=== PATIENT | female | born 1955 | race African-American/Black ===

== ENCOUNTER 2023-01-17 12:55 | Outpatient (REF) | payer MEDICARE, SELFPAY ==
[2023-01-17 16:37] LABS: MANUAL DIFF FLAG NO
[2023-01-17 16:44] LABS: Basophils Percent Auto 0.3 % (0-2); Eosinophils Absolute Auto 0.1 X10*3/uL (0.0-0.4); Hematocrit 44.2 % (37.0-47.0); Hemoglobin 14.8 g/dl (12.0-16.0); Imm Gran Abs Auto 0.03 X10*3/uL (0.00-0.03); Imm Gran Pct Auto 0.5 % (0.0-0.4); Lymphocytes Absolute Auto 2.1 X10*3/uL (1.2-4.9); Lymphocytes Percent Auto 36.3 % (20-40); Mean Corpuscular HGB Conc 33.5 g/dl (31.0-35.0); Mean Corpuscular Hemoglobin 31.8 pg (27.0-33.0); Mean Corpuscular Volume 94.8 fL (80.0-98.0); Mean Platelet Volume 10.3 fL (9.4-12.3); Monocytes Absolute Auto 0.8 X10*3/uL (0.1-1.2); Monocytes Percent Auto 12.9 % (2-11); Neutrophils Absolute Auto 2.8 x10*3/uL (2.0-8.3); Platelet Count 252 X10*3/uL (160-400); Red Blood Count 4.66 X10*6/uL (4.20-5.50); Red Cell Distribution Width 13.7 % (11.0-16.0); White Blood Count 5.9 X10*3/uL (4.8-10.8)
[2023-01-17 17:16] LABS: Alanine Aminotransferase 19 U/L (0-31); Albumin Level 3.9 g/dL (3.5-5.0); Alkaline Phosphatase 88 U/L (39-117); Anion Gap 9 (12-20); Aspartate Amino Transferase 14 U/L (5-31); Bilirubin Total 0.6 mg/dL (0.0-1.0); Blood Urea Nitrogen 14 mg/dL (9-16); Calcium 9.2 mg/dL (8.4-10.2); Carbon Dioxide 28 mmol/L (22-29); Chloride 108 mmol/L (96-108); Cholesterol 191 mg/dL; Estimated Glomerular Filt Rate > 60; Glucose Random 99 mg/dL (60-115); HDL Cholesterol 46 mg/dL; LDL Cholesterol Calculated 124 mg/dl; Potassium 4.2 mmol/L (3.3-5.1); Sodium 141 mmol/L (135-145); Total Protein 6.6 g/dL (6.5-8.0); Triglycerides 109 mg/dL
[2023-01-17 17:31] LABS: Vitamin D 25-OH Total 41.4 ng/mL (>30)
== END 2023-01-17 12:56 | disposition home or self-care (01) ==
LOC: HO.HMGCLDS 12:55
PROVIDERS: PCP Nurse Practitioner Family; Visit Provider Nurse Practitioner Family
DX: I10 Essential (primary) hypertension (principal); E78.5 Hyperlipidemia, unspecified; E55.9 Vitamin D deficiency, unspecified
CPT/HCPCS: 36415; 80053; 80061; 82306; 85025

== ENCOUNTER 2024-05-21 08:50 | Outpatient (AMB) | payer MEDICARE, SELFPAY ==
--- NOTE | 2024-05-21 08:59 | MHC.PC.OV ---
Vital Signs 05/21/24 09:12 05/21/24 09:52 Height 5 ft 5 in Weight 230 lb 8 oz BMI 38.4 BP 184/84 H 154/78 H Blood Pressure Location Rt brachial Rt brachial Position Sitting Sitting Respiration 15 Pulse 81 Pulse Source Pulse Oximeter Temp 98.1 F Temp Source Oral Pulse Oximetry (%) 99 Oxygen Delivery Method Room Air Intake Visit Reasons: RN TRANSITION Intake Note: new patient to establish care Allergies Penicillins Allergy (Severe, Verified 05/21/24 09:03) Eye Swelling Medication List - Last Reconciled 05/21/24 by Marilou Navarrete, [facility]- amlodipine 10 mg PO DAILY aspirin 81 mg PO DAILY cholecalciferol (vitamin D3) 50 mcg PO DAILY hydrochlorothiazide 25 mg PO DAILY metoprolol tartrate 50 mg PO DAILY permethrin 5% 1 appl topical Q14D Tobacco use date assessed: 05/21/24 Fall risk assessment: 2 + Falls in past year Last assessed Fall Risk: 05/21/24 Dental Screening Dental Screen Date: 05/21/24 Did you have a dental visit in the last 12 months?: No Did you have a dental problem in the last 6 months where you did not have access to dental care?: No Was dental information given to patient?: Patient has dentist HPI HPI Comments History of Present Illness Details 68 y/o F with HTN, current smoker, menopause, obesity, Vit d def , right knee osteoarthritis, PVD Health Maintenance Lung ca screening: referred today 05/21/24 Dexa Pap Colon referred today 05/21/24 Mammo Tdap/flu 05/21/24 Specialists GI ortho Derm Here today as a new patient, to [facility], no old records available. Reports she fell out of care around the time of COVID In 2019 she was admitted to [facility] with SBO, ANETA requiring dialysis and bowel surgery. She needs a referral to see a new machine hoop maker She also complains of chronic right osteoarthritis, has received cortisone injections in the past, would like a referral to orthopedics placed today for her Reports numbness in her fingertips, chronic Complains of dry white flaky skin on her scalp and face, was prescribed permethrin cream in the past, is using an unsure if it has helped. Would like a referral to Dermatology Also complaining that her urine smells very bad, unsure of when this started. Denies any fever, chills, nausea, vomiting Has had several mechanical falls would like a lifeline Exam: Awake alert NAD RRR, 2/6 systolic murmur Ins/exp wheezes throughout Nonpitting edema BLE, decreased PP, + varicose veins, skin intact No rash is noted Plan Check labs today: Labs from today show a normal CBC, normal electrolytes, normal renal function, hemoglobin A1c 5.6%, normal iron profile, total cholesterol 220, LDL 150, HDL 46, triglycerides 120, vitamin B12 low end of normal at 238, normal vitamin-D, normal TSH and folate, normal urinalysis Tdap and Flu today Refer to GI, Derm and Ortho Refer for Lung ca screening BP uncontrolled, start HCTZ 25mg QAM to help + to help edema of BLE Start Atorvastatin 20mg QD Start b12 QD Please get discharge paperwork from [facility] 2019 admission for small bowel obs, had surgery and ANETA, Echo if avail; also need PCP notes. RTO 2 weeks for close fu and to cont to est care for chronic conditions. Total time spent caring for the patient today was 60 minutes. This includes time spent before the visit reviewing the chart, time spent during the visit, and time spent after the visit on documentation This note is constructed using voice recognition software. While every effort has been made to ensure accuracy in casting chipper, still errors may have been included Sometimes, these errors may affect the content or meaning of the given sentence . [facility] Social History (Updated 05/21/24 @ 09:11 by Estefani Truong MA) Household Members: None Housing: Apartment Are you a primary technical healthcare consultant to a significant other at home: No Do you presently have visiting nurse or other home services: Yes ([facility]) 75 years or older and lives alone: No Alcohol intake: current Alcohol intake frequency: a few times a week Patient Tobacco Use Status: Current everyday Tobacco user Tobacco use type: Cigarette Cigarettes Per Day: 3 Years Smoked: 50 e-Cigarette/Vaping Use: Never Used service: No Current occupational status: employed and retired 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 1. Little interest or pleasure in doing things: nearly every day 2. Feeling down, depressed, or hopeless: nearly every day 3. Trouble falling or staying asleep, or sleeping too much: nearly every day 4. Feeling tired or having little energy: nearly every day 5. Poor appetite or overeating: nearly every day 6. Feeling bad about yourself - or that you are a failure or have let yourself or your family down: several days 7. Trouble concentrating on things, such as reading the newspaper or watching television: nearly every day 8. Moving or speaking so slowly that other people could have noticed. Or the opposite - being so fidgety or restless that you have been moving around a lot more than usual: not at all 9. Thoughts that you would be better off or of hurting yourself in some way: several days Total score: 20 Depression Screening Interpretation: Positive Depression Screening Follow-up: Existing condition and Declines treatment Depression Screening Done: Yes 17479 - PHQ-9 Billing: Yes Source: Developed by Drs. Raymundo Higgins, Claudia Angulo, Mac Foote and colleagues, with an educational mireya from [employer] Thrive Questionnaire Date Thrive assessed: 05/21/24 I am a: Patient What is your living situation today?: I have a steady place to live Within the past 12 months, did the food you bought not last and you didn't have the money to get more?: Never true Within the past 12 months, did you worry whether your food would run out before you got money to buy more?: Never true Do you have trouble paying for medicines?: No Do you have trouble getting transportation to medical appointments?: No Do you have trouble paying your heating and electricity bill?: No Do you have trouble taking care of your child, family member or friend?: No Do you have trouble with day-to-day activities such as bathing, preparing meals, shopping, managing finances, etc.?: No Are you currently unemployed and looking for a job?: No Are you interested in more education?: No Please select the resources that you would like help with: None Currently or been in a relationship where the following occur: No concerns reported THRIVE Score: 0 AUDIT C Alcohol Use Questionnaire (AUDIT-C) 1. How often do you have a drink containing alcohol?: Monthly or less 2. How many drinks containing alcohol do you have on a typical day when you are drinking?: 1 or 2 3. How often do you have six or more drinks on one occasion?: Weekly Total Score: 4 Score Reviewed/Action Taken: Yes OMA-7 AMB Questionnaire OMA-7 Date OMA - 7 assessed: 05/21/24 Feeling nervous, anxious, or on edge: 1 = Several days Not being able to stop or control worryin = Several days Worrying too much about different things: 3 = Nearly every day Trouble relaxin = Nearly every day Being so restless that it is hard to sit still: 2 = More than half the days Becoming easily annoyed or irritable: 3 = Nearly every day Feeling afraid as if something awful might happen: 3 = Nearly every day Total OMA-7 score (0-4 normal; 5-9 mild; 10-14 moderate; 15-21 severe): 16 Source: Developed by Drs. Raymundo Higgins, Claudia Angulo, Mac Foote and colleagues, with an educational mireya from [employer] OMA-7 Assessment Billing OMA-7 Assessment Tool: OMA-7 Assessment 04980 ACT Questionnaire In the past 4 weeks, how much of the time did your asthma keep you from getting as much done at work, school or at home?: Most of the time During the past 4 weeks, how often have you had shortness of breath?: 3-6 times a week During the past 4 weeks, how often did your asthma symptoms wake you up at night or earlier than usual in the morning?: 4 or more nights a week During the past 4 weeks, how often have you had to use your rescue inhaler or nebulizer medication?: Once a week or less How would you rate your asthma control during the past 4 weeks?: Poorly controlled Score: 12 Physical exam (Primary Care) Vital Signs: Last Vital Signs Temp 98.1 F 05/21/24 09:12 Pulse 81 05/21/24 09:12 Resp 15 05/21/24 09:12 BP 154/78 H 05/21/24 09:52 Pulse Ox 99 05/21/24 09:12 Oxygen Delivery Method Room Air 05/21/24 09:12 BMI result Body Mass Index 38.4 BMI Assessment/Plan discussion: High BMI High, discussed plan: lifestyle Tobacco/Smoking Status: Tobacco use Status Tobacco use date assessed 05/21/24 05/21/24 09:16 Patient Tobacco Use Status Current everyday Tobacco 05/21/24 09:16 Tobacco use type Cigarette 05/21/24 09:16 e-Cigarette/Vaping Use Never Used 05/21/24 09:16 Are you ready to quit: No Tobacco cessation counseling provided: Yes Items discussed: Nicotine replacement, QuitWorks and Other Relapse Prevention: discussed the importance of a supportive environment, discussed extending NRT, discussed negative mood or depression after quitting, weight gain after smoking is common and discussed dietary, exercise and/or lifestyle changes Number of minutes spent counselin CPT code: 44589 - 4-10 Minutes PHQ-9: PHQ-9 Score PHQ-9: Total score 20 05/21/24 10:21 Depression Screening Interpretation: Positive Depression Screening Follow-up: Existing condition and Declines treatment Thrive Assessment: Date of Thrive Assessment Date Thrive assessed 05/21/24 05/21/24 10:21 Currently or been in a relationship where the following occur: No concerns reported Office Procedures Flu Questionnaire Does the patient have a severe egg allergy?: No Does the patient have severe life threatening allergies?: No Does the patient have a fever or illness today?: No Has the patient ever had Guillain-Wakefield Syndrome?: No Has the patient ever had any past reaction to a flu shot?: No Immunizations Fluarix Triv [id number] (PF) 45 mcg (15 mcg x 3)/0.5 mL IM syringe Performing Provider: ESTEFANIA Valiente Performing Location: [facility] Administered by: Odalis Lopez RN on 05/21/24 10:11 Dose Route Admin Location Dispensed Lot Number Expiration Date [facility] Electronic [facility] Techn[facility] 0.5 mL IM Left Deltoid 0.5 mL [id number] 02/04/25 28209-007-41 [employer] VIS Given Date VIS Provided VIS Publication Date 05/21/24 Single Vaccine 21 Eligibility Eligibility Date Funding Source Not [facility] Eligible 05/21/24 Private Administration Comments: Patient received both the flu shot and TDaP today. Both given in left deltoid, flu shot above the TDaP. Boostrix Tdap 2.5 Lf unit-8 mcg-5 Lf/0.5 mL intramuscular syringe Performing Provider: ESTEFANIA Valiente Performing Location: [facility] Administered by: Odalis Lopez RN on 05/21/24 10:11 Dose Route Admin Location Dispensed Lot Number Expiration Date [facility] Technician 0.5 mL IM Left Deltoid 0.5 mL [id number] 05/05/25 26284-204-61 [employer] VIS Given Date VIS Provided VIS Publication Date 05/21/24 Single Vaccine 21 Eligibility Eligibility Date Funding Source Not [facility] Eligible 05/21/24 Private Administration Comments: Patient received both the flu shot and TDaP today. Both given in left deltoid, flu shot above the TDaP. Coding Level of Care Code New Pt Level 5 (18351) Complex EM visit Add On G2211 Diagnoses Current smoker F17.200 S/P colectomy Z90.49 Screen for colon cancer Z12.11 Skin rash R21 Falls R29.6 Primary osteoarthritis of right knee M17.11 Osteoarthritis type: primary Class 2 severe obesity due to excess calories with serious comorbidity and body mass index (BMI) of 38.0 to 38.9 in adult E66.812; E66.01; Z68.38 Obesity type: due to excess calories Serious obesity comorbidity presence: with serious comorbidity Body mass index (BMI) of 38.0-38.9 in adult Z68.38 Mild episode of recurrent major depressive disorder F33.0 Major depression episode severity: mild OMA (generalized anxiety disorder) F41.1 PVD (peripheral vascular disease) I73.9 Menopause Z78.0 Laboratory exam ordered as part of routine general medical examination Z00.00 Mixed hyperlipidemia E78.2 Hyperlipidemia type: mixed hyperlipidemia Primary hypertension I10 Hypertension type: primary hypertension Vitamin B12 deficiency without anemia E53.8 Additional Codes OMA-7 Assessment Billing - OMA-7 Assessment Tool: OMA-7 Assessment 85949 ([id number]) Vital Signs *Quality* - CPT code: 95105 - 4-10 Minutes ([id number]) Assessment & Plan Assessment & Plan (1) Current smoker: Code(s): F17.200 - Nicotine dependence, unspecified, uncomplicated Category: Medical Plan: Smoking Cessation How to Quit There are a lot of ways to quit smoking and many resources to help you. Family members, friends, and co-workers may be supportive or encouraging, but to be successful the desire and commitment to quit must be your own. Most people who have been able to successfully quit smoking made at least one unsuccessful attempt in the past. Try not to view past attempts to quit as failures, but rather as learning experiences. Stopping smoking or using smokeless tobacco is difficult, but anyone can do it. Know the symptoms to expect when you stop. Common symptoms include: ? An intense craving for nicotine ? Anxiety, tension, restlessness, frustration, or impatience ? Difficulty concentrating ? Drowsiness or trouble sleeping, as well as bad dreams and nightmares ? Drowsiness and trouble sleeping ? Headaches ? Increased appetite and weight gain ? Irritability or depression How severe your symptoms are depends on how long you smoked and how many cigarettes you smoked each day. Feel ready to quit? ? First and foremost, set a quit date and quit completely on that day. Before your quit date, you may begin reducing your cigarette use. But remember, there is no safe level of cigarette smoking. ? List the reasons why you want to quit. Include both short- and long-term benefits. ? Identify the times you are most likely to smoke. For example, do you tend to smoke when feeling stressed or down? When out at night with friends? While drinking coffee or alcohol? When bored? While driving? Right after a meal or sex? During a work break? While watching TV or playing cards? When you are with other smokers? ? Let all of your friends, family, and co-workers know of your plan to stop smoking and your quit date. Just being aware that they know what you're going through can be helpful, especially when you are grumpy. ? Get rid of all your cigarettes just before the quit date, and clean out anything that smells like smoke, such as clothes and furniture. Make a plan about what you will do instead of smoking at those times when you are most likely to smoke. ? Be as specific as possible. For example, drink tea instead of coffee -- tea may not trigger the desire for a cigarette. Or, take a walk when you feel stressed. ? Remove ashtrays and cigarettes from the car. Place pretzels or hard candies there instead. Pretend-smoke with a straw. ? Find activities that focus your hands and mind but are not taxing or fattening. Computer games, solitaire, knitting, sewing, and crossword puzzles may help. ? If you normally smoke after eating, find other ways to end a meal. Play a tape or CD, eat a piece of fruit, get up and make a phone call, or take a walk (a good distraction that also wong calories). Make other changes in your lifestyle. ? Change your daily schedule and habits. Eat at different times or eat several small meals instead of three large ones. Sit in a different chair or even a different room. ? Satisfy your oral habits by eating celery or other low-calorie snack, chewing sugarless gum, or sucking on a cinnamon stick. ? Go to public places and restaurants where smoking is prohibited or restricted. ? Eat regular meals and don't eat too much candy or sweet things. ? Get more exercise. Take walks or ride a bike. Exercise helps relieve the urge to smoke. Set short-term quitting goals and reward yourself when you meet them. ? Every day, put the money you normally spend on cigarettes in a jar. Then buy something pleasurable after a period of time. ? Try not to think about all the days ahead you will need to avoid smoking. Take it one day at a time. ? Even one puff or one cigarette will make your desire for more cigarettes even stronger. However, it is normal to make mistakes. So even if you have one cigarette, you don't need to take the next one. Other tips to help you quit smoking and stick to it: ? Enroll in a smoking cessation program (hospitals, health departments, community centers, and work sites often offer programs). Learn about self-hypnosis or other techniques. ? Ask your health care provider about prescription medications that are safe and appropriate for you. ? Find out about nicotine patches, gum, and sprays. The [employer]'s web site -- www.cancer.org -- is an excellent resource for smokers who are trying to quit, and the [employer] [place] [employer] can help some smokers kick the habit. Above all, don't get discouraged if you aren't able to quit smoking the first time. Nicotine addiction is a hard habit to break. Try something different next time. Develop new strategies, and try again. Many people take several attempts to finally kick the habit. (2) S/P colectomy: Code(s): Z90.49 - Acquired absence of other specified parts of digestive tract Category: Medical Plan: . (3) Screen for colon cancer: Code(s): Z12.11 - Encounter for screening for malignant neoplasm of colon Category: Medical Plan: . (4) Skin rash: Code(s): R21 - Rash and other nonspecific skin eruption Category: Medical Plan: . (5) Falls: Code(s): R29.6 - Repeated falls Category: Medical Plan: . (6) Osteoarthritis of right knee: Code(s): M17.11 - Unilateral primary osteoarthritis, right knee Category: Medical Qualifiers: Osteoarthritis type: primary Qualified Code(s): M17.11 - Unilateral primary osteoarthritis, right knee Plan: . (7) Class 2 obesity with body mass index (BMI) of 38.0 to 38.9 in adult: Comment: htn and pvd Code(s): E66.812 - Obesity, class 2; Z68.38 - Body mass index [BMI] 38.0-38.9, adult Category: Medical Qualifiers: Obesity type: due to excess calories Serious obesity comorbidity presence: with serious comorbidity Qualified Code(s): E66.812 - Obesity, class 2; E66.01 - Morbid (severe) obesity due to excess calories; Z68.38 - Body mass index [BMI] 38.0-38.9, adult (8) Body mass index (BMI) of 38.0-38.9 in adult: Code(s): Z68.38 - Body mass index [BMI] 38.0-38.9, adult Category: Medical Plan: . (9) MDD (major depressive disorder), recurrent episode: Code(s): F33.9 - Major depressive disorder, recurrent, unspecified Category: Medical Qualifiers: Major depression episode severity: mild Qualified Code(s): F33.0 - Major depressive disorder, recurrent, mild Plan: . (10) OMA (generalized anxiety disorder): Code(s): F41.1 - Generalized anxiety disorder Category: Medical Plan: . (11) PVD (peripheral vascular disease): Comment: based on clinical exam, decreased PP, hairless, monitor skin integrity encourage exercise and smoking cessation Code(s): I73.9 - Peripheral vascular disease, unspecified Category: Medical Plan: . (12) Menopause: Code(s): Z78.0 - Asymptomatic menopausal state Category: Medical Plan: . (13) Laboratory exam ordered as part of routine general medical examination: Code(s): Z00.00 - Encounter for general adult medical examination without abnormal findings Category: Medical Plan: . (14) Hyperlipidemia: Code(s): E78.5 - Hyperlipidemia, unspecified Category: Medical Qualifiers: Hyperlipidemia type: mixed hyperlipidemia Qualified Code(s): E78.2 - Mixed hyperlipidemia (15) HTN (hypertension): Code(s): I10 - Essential (primary) hypertension Category: Medical Qualifiers: Hypertension type: primary hypertension Qualified Code(s): I10 - Essential (primary) hypertension (16) Vitamin B12 deficiency without anemia: Code(s): E53.8 - Deficiency of other specified B group vitamins Category: Medical Plan . Orders: Orders Comprehensive Met. Panel Today F17.200 - Nicotine dependence, unspecified, uncomplicated, Z00.00 - Encounter for general adult medical examination without abnormal findings, Z78.0 - Asymptomatic menopausal state Hemoglobin A1c Today F17.200 - Nicotine dependence, unspecified, uncomplicated, Z00.00 - Encounter for general adult medical examination without abnormal findings, Z78.0 - Asymptomatic menopausal state IRON PROFILE Today F17.200 - Nicotine dependence, unspecified, uncomplicated, Z00.00 - Encounter for general adult medical examination without abnormal findings, Z78.0 - Asymptomatic menopausal state Vitamin D 25-OH Total Today F17.200 - Nicotine dependence, unspecified, uncomplicated, Z00.00 - Encounter for general adult medical examination without abnormal findings, Z78.0 - Asymptomatic menopausal state TDaP Immunization Today Z23 - Encounter for immunization Complete Blood Count no Diff Today F17.200 - Nicotine dependence, unspecified, uncomplicated, Z00.00 - Encounter for general adult medical examination without abnormal findings, Z78.0 - Asymptomatic menopausal state Lipid Panel Today F17.200 - Nicotine dependence, unspecified, uncomplicated, Z00.00 - Encounter for general adult medical examination without abnormal findings, Z78.0 - Asymptomatic menopausal state Microalbumin, Random (w Creat) Today F17.200 - Nicotine dependence, unspecified, uncomplicated, Z00.00 - Encounter for general adult medical examination without abnormal findings, Z78.0 - Asymptomatic menopausal state TSH reflex Free T4 Today F17.200 - Nicotine dependence, unspecified, uncomplicated, Z00.00 - Encounter for general adult medical examination without abnormal findings, Z78.0 - Asymptomatic menopausal state Vitamin B12 and Folate Today F17.200 - Nicotine dependence, unspecified, uncomplicated, Z00.00 - Encounter for general adult medical examination without abnormal findings, Z78.0 - Asymptomatic menopausal state UA CC w/rflx Micro + Cult Today F17.200 - Nicotine dependence, unspecified, uncomplicated, Z00.00 - Encounter for general adult medical examination without abnormal findings, Z78.0 - Asymptomatic menopausal state Influenza [id number] Immunization Today Z23 - Encounter for immunization Referrals Lung Cancer Screening Referral F17.200 - Nicotine dependence, unspecified, uncomplicated Orthopedics Referral M17.11 - Unilateral primary osteoarthritis, right knee Gastroenterology Referral Z12.11 - Encounter for screening for malignant neoplasm of colon, Z90.49 - Acquired absence of other specified parts of digestive tract Dermatology Referral R21 - Rash and other nonspecific skin eruption Nurse Navigator Referral R29.6 - Repeated falls Medications: New amlodipine 10 mg PO DAILY 90 tabs 0RF hydrochlorothiazide 25 mg PO DAILY 90 tabs 0RF metoprolol tartrate 50 mg PO DAILY 90 tabs 0RF cholecalciferol (vitamin D3) 50 mcg PO DAILY 90 caps 2RF atorvastatin 20 mg PO BEDTIME 90 tabs 0RF mecobalamin (vitamin B12) (B12 Active) 2,000 mcg (2 x 1,000 mcg) PO DAILY 90 tabs 3RF
[2024-05-21 09:12] VITALS: BP 184/84; PULSE 81; RESP 15; TEMP 36.7; O2SAT 99; BMI 38.4
[2024-05-21 09:52] VITALS: BP 154/78
== END 2024-05-21 10:43 | disposition home or self-care (01) ==
PROVIDERS: Visit Provider Nurse Practitioner Family
DX: F33.0 Major depressive disorder, recurrent, mild (principal); I73.9 Peripheral vascular disease, unspecified; E66.812 Obesity, class 2; Z68.38 Body mass index [BMI] 38.0-38.9, adult; I10 Essential (primary) hypertension; M17.11 Unilateral primary osteoarthritis, right knee; Z90.49 Acquired absence of other specified parts of digestive tract; F17.210 Nicotine dependence, cigarettes, uncomplicated; Z12.11 Encounter for screening for malignant neoplasm of colon; R21 Rash and other nonspecific skin eruption; R29.6 Repeated falls; F41.1 Generalized anxiety disorder

== ENCOUNTER → 2024-05-21 08:50 | Outpatient (BNVA) | payer MEDICARE, SELFPAY | PROVIDERS: Visit Provider Nurse Practitioner Family ==

== ENCOUNTER 2024-05-21 10:30 | Outpatient (REF) | payer MEDICARE, SELFPAY ==
[2024-05-21 13:41] LABS: Hematocrit 43.5 % (37.0-47.0); Hemoglobin 14.9 g/dl (12.0-16.0); Mean Corpuscular HGB Conc 34.3 g/dl (31.0-35.0); Mean Corpuscular Hemoglobin 32.3 pg (27.0-33.0); Mean Corpuscular Volume 94.2 fL (80.0-98.0); Mean Platelet Volume 9.9 fL (9.4-12.3); Platelet Count 224 X10*3/uL (160-400); Red Blood Count 4.62 X10*6/uL (4.20-5.50); Red Cell Distribution Width 13.3 % (11.0-16.0); White Blood Count 4.8 X10*3/uL (4.8-10.8)
[2024-05-21 13:56] LABS: Appearance Urine Clear; Color Urine Yellow; Glucose Urine UA Negative (Negative); Leukocyte Esterase Urine Negative (Negative); Nitrite Urine Negative (Negative); Urine Blood Negative (Negative); Urine Ketones Negative (Negative); Urine Protein Negative (Neg-Trace)
[2024-05-21 13:58] LABS: Alanine Aminotransferase 18 U/L (0-31); Albumin Level 3.8 g/dL (3.5-5.0); Alkaline Phosphatase 75 U/L (39-117); Anion Gap 10 (12-20); Aspartate Amino Transferase 13 U/L (5-31); Bilirubin Total 0.3 mg/dL (0.0-1.0); Blood Urea Nitrogen 12 mg/dL (9-16); Calcium 9.8 mg/dL (8.4-10.2); Carbon Dioxide 26 mmol/L (22-29); Chloride 108 mmol/L (96-108); Cholesterol 220 mg/dL (<200); Estimated Glomerular Filt Rate > 60; Glucose Random 101 mg/dL (60-115); HDL Cholesterol 46 mg/dL (>40); Iron 93 mcg/dL (30-160); LDL Cholesterol Calculated 150 mg/dL (<100); Percent Iron Saturation 37 % (15-50); Potassium 3.9 mmol/L (3.3-5.1); Sodium 140 mmol/L (135-145); Total Iron Binding Capacity 251 mcg/dL (228-428); Total Protein 6.8 g/dL (6.5-8.0); Triglycerides 120 mg/dL (<150); Unsaturated Iron Binding 158 ug/dL
[2024-05-21 13:59] LABS: Estimated Average Glucose 114 mg/dL; Hemoglobin A1C 136.6172 umol/L; Hemoglobin A1c % 5.6 % (<6.0)
[2024-05-21 14:14] LABS: TSH reflex Free T4 0.72 uIU/mL (0.32-4.0)
[2024-05-21 14:20] LABS: Creatinine Urine 46.71 mg/dL; Microalbumin Urine < 5.0 mg/L
[2024-05-21 14:26] LABS: Folate 7.1 ng/mL (> or = 4.0); Vitamin B12 238 pg/mL (200-900)
== END 2024-05-21 10:31 | disposition home or self-care (01) ==
LOC: HO.WFDLDS 10:30
PROVIDERS: Visit Provider Nurse Practitioner Family
DX: R21 Rash and other nonspecific skin eruption (principal); R29.6 Repeated falls; M17.11 Unilateral primary osteoarthritis, right knee; Z23 Encounter for immunization; E66.812 Obesity, class 2; E66.01 Morbid (severe) obesity due to excess calories; Z68.38 Body mass index [BMI] 38.0-38.9, adult; F33.0 Major depressive disorder, recurrent, mild; F41.1 Generalized anxiety disorder; I73.9 Peripheral vascular disease, unspecified; E78.2 Mixed hyperlipidemia; I10 Essential (primary) hypertension; E53.8 Deficiency of other specified B group vitamins; F17.210 Nicotine dependence, cigarettes, uncomplicated; Z78.0 Asymptomatic menopausal state; Z90.49 Acquired absence of other specified parts of digestive tract
CPT/HCPCS: 36415; 80053; 80061; 81003; 82043; 82306; 82570; 82607; 82746; 83036; 83540; 84443; 85027; 90471; 90656; 90715; 96127; 96160; 99202

== ENCOUNTER 2024-06-04 13:03 | Outpatient (AMB) | payer MEDICARE, SELFPAY ==
--- NOTE | 2024-06-04 13:09 | A.OFFPC_ITS ---
Vital Signs 06/04/24 13:13 Height 5 ft 5 in Weight 228 lb 4 oz BMI 38.0 BP 128/72 Blood Pressure Location Rt brachial Position Sitting Respiration 14 Pulse 86 Pulse Source Pulse Oximeter Pulse Oximetry (%) 97 Oxygen Delivery Method Room Air Intake Visit Reasons: 2 weeks 30 min est care/fu complex Intake Note: follow up Allergies Penicillins Allergy (Severe, Verified 06/04/24 13:36) Eye Swelling Medication List - Last Reconciled 06/04/24 by Marilou Navarrete, [facility] amlodipine 10 mg PO DAILY aspirin 81 mg PO DAILY atorvastatin 20 mg PO BEDTIME cholecalciferol (vitamin D3) 50 mcg PO DAILY hydrochlorothiazide 25 mg PO DAILY mecobalamin (vitamin B12) (B12 Active) 2,000 mcg (2 x 1,000 mcg) PO DAILY metoprolol tartrate 50 mg PO DAILY permethrin 5% 1 appl topical Q14D Tobacco use date assessed: 05/21/24 Dental Screening Dental Screen Date: 05/21/24 HPI HPI Comments History of Present Illness Details Kindra 68 y/o F with HTN, current smoker, menop ause, obesity, Vit d def , right knee osteoarthritis, PVD, CHF, b12 def without anemia, frequent falls Health Maintenance Lung ca screening: referred 05/21/24 Dexa Pap Colon referred 05/21/24 Mammo Tdap/flu 05/21/24 Specialists GI waiting on appt ortho 06/18/24 for initial consult Derm 06/2024 [facility] initial derm Cards Here today for close f/u. Started HCTZ a few days but noticed an uptic in urination so stopped. It did help her edema. Wt decreased since last visit. She is not active w/ Cards. Did not get her statin or ASA or B12 either. She is unsure why. I have sent these today. I still not not recieve the record from 2019 admit at [facility] with SBO, ANETA requiring dialysis and bowel surgery. I asked she work on getting these for me. Reports numbness in her fingertips, chronic, edu her about b12 playing a role in this. She needs to start. Reviewed w/ her Labs from 05/21/24 normal CBC, normal electrolytes, normal renal function, hemoglobin A1c 5.6%, normal iron profile, total cholesterol 220, LDL 150, HDL 46, triglycerides 120, vitamin B12 low end of normal at 238, normal vitamin-D, normal TSH and folate, normal urinalysis Exam: Awake alert NAD RRR, 2/6 systolic murmur Clear and dim throughout Nonpitting edema BLE L>R, decreased PP, + varicose veins, skin intact Plan Refer to Cards and check Echo All meds sent to pharmacy, take as directed Keep all appts w/ consults, please ask records to be cc'd to me for review Smoking cessation RTO 3 months w repeat labs 1 week before for routine FU, sooner PRN Total time spent caring for the patient today was 40 minutes. This includes time spent before the visit reviewing the chart, time spent during the visit, and time spent after the visit on documentation This note is constructed using voice recognition software. While every effort has been made to ensure accuracy in brand marketing intern, still errors may have been included Sometimes, these errors may affect the content or meaning of the given sentence . [facility] Social History (System 05/22/24 @ 07:46 by Maira Alexander) Household Members: None Housing: Apartment Are you a primary primary care physician to a significant other at home: No Do you presently have visiting nurse or other home services: Yes ([facility]) 75 years or older and lives alone: No Alcohol intake: current Alcohol intake frequency: a few times a week Patient Tobacco Use Status: Current everyday Tobacco user Tobacco use type: Cigarette Cigarettes Per Day: 3 Years Smoked: 50 e-Cigarette/Vaping Use: Never Used service: No Current occupational status: employed and retired 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 1. Little interest or pleasure in doing things: several days 2. Feeling down, depressed, or hopeless: several days 3. Trouble falling or staying asleep, or sleeping too much: several days 4. Feeling tired or having little energy: several days 5. Poor appetite or overeating: more than half the days 6. Feeling bad about yourself - or that you are a failure or have let yourself or your family down: several days 7. Trouble concentrating on things, such as reading the newspaper or watching television: several days 8. Moving or speaking so slowly that other people could have noticed. Or the opposite - being so fidgety or restless that you have been moving around a lot more than usual: several days 9. Thoughts that you would be better off or of hurting yourself in some way: several days Total score: 10 70309 - PHQ-9 Billing: Yes Source: Developed by Drs. Raymundo Higgins, Clauida Angulo, Mac Foote and colleagues, with an educational mireya from [employer]. Thrive Questionnaire Date Thrive assessed: 05/29/24 I am a: Patient What is your living situation today?: I do not have a steady places to live I choose not to answer this question Within the past 12 months, did the food you bought not last and you didn't have the money to get more?: Sometimes True Within the past 12 months, did you worry whether your food would run out before you got money to buy more?: Sometimes True Do you have trouble paying for medicines?: No Do you have trouble getting transportation to medical appointments?: No Do you have trouble paying your heating and electricity bill?: No Do you have trouble taking care of your child, family member or friend?: I choose not to answer this question Do you have trouble with day-to-day activities such as bathing, preparing meals, shopping, managing finances, etc.?: I choose not to answer this question Are you currently unemployed and looking for a job?: No Are you interested in more education?: No Please select the resources that you would like help with: Housing/Fpc and Food Currently or been in a relationship where the following occur: I choose not to answer THRIVE Score: 3 AUDIT C Alcohol Use Questionnaire (AUDIT-C) 1. How often do you have a drink containing alcohol?: Monthly or less Total Score: 1 OMA-7 AMB Questionnaire OMA-7 Date OMA - 7 assessed: 06/04/24 Feeling nervous, anxious, or on edge: 2 = More than half the days Not being able to stop or control worryin = Several days Worrying too much about different things: 2 = More than half the days Trouble relaxin = Several days Being so restless that it is hard to sit still: 1 = Several days Becoming easily annoyed or irritable: 1 = Several days Feeling afraid as if something awful might happen: 1 = Several days Total OMA-7 score (0-4 normal; 5-9 mild; 10-14 moderate; 15-21 severe): 9 Source: Developed by Drs. Raymundo Higgins, Claudia Angluo, Mac Foote and colleagues, with an educational mireya from [employer]. OMA-7 Assessment Billing OMA-7 Assessment Tool: OMA-7 Assessment 18751 Physical exam (Primary Care) Vital Signs: Last Vital Signs Pulse 86 06/04/24 13:13 Resp 14 06/04/24 13:13 BP 128/72 06/04/24 13:13 Pulse Ox 97 06/04/24 13:13 Oxygen Delivery Method Room Air 06/04/24 13:13 BMI result Body Mass Index 38.0 Tobacco/Smoking Status: Tobacco use Status Tobacco use date assessed 05/21/24 06/04/24 13:10 Patient Tobacco Use Status Current everyday Tobacco 06/04/24 13:10 Tobacco use type Cigarette 06/04/24 13:10 e-Cigarette/Vaping Use Never Used 06/04/24 13:10 Tobacco cessation counseling provided: Yes Items discussed: Nicotine replacement, QuitWorks and Other Relapse Prevention: discussed the importance of a supportive environment, discussed extending NRT, discussed negative mood or depression after quitting, weight gain after smoking is common and discussed dietary, exercise and/or lifestyle changes Number of minutes spent counselin (5) CPT code: 09781 - 4-10 Minutes PHQ-9: PHQ-9 Score PHQ-9: Total score 10 06/04/24 18:03 Thrive Assessment: Date of Thrive Assessment Date Thrive assessed 05/29/24 06/04/24 13:10 Currently or been in a relationship where the following occur: I choose not to answer Coding Level of Care Code Est Pt Level 5 (41018) Complex EM visit Add On G2211 Diagnoses Chronic systolic congestive heart failure I50.22 Heart failure type: systolic Heart failure chronicity: chronic Heart murmur R01.1 Mixed hyperlipidemia E78.2 Hyperlipidemia type: mixed hyperlipidemia Primary hypertension I10 Hypertension type: primary hypertension Vitamin B12 deficiency without anemia E53.8 PVD (peripheral vascular disease) I73.9 Mild episode of recurrent major depressive disorder F33.0 Major depression episode severity: mild Tobacco dependence F17.200 Additional Codes OMA-7 Assessment Billing - OMA-7 Assessment Tool: OMA-7 Assessment 21582 ([id number]) Vital Signs *Quality* - CPT code: 12819 - 4-10 Minutes ([id number]) Assessment & Plan Assessment & Plan (1) CHF (congestive heart failure): Code(s): I50.9 - Heart failure, unspecified Category: Medical Qualifiers: Heart failure type: systolic Heart failure chronicity: chronic Qualified Code(s): I50.22 - Chronic systolic (congestive) heart failure Plan: euvolemic, on BB, CCB (2) Heart murmur: Code(s): R01.1 - Cardiac murmur, unspecified Category: Medical Plan: . (3) Hyperlipidemia: Comment: LDL goal <70 Code(s): E78.5 - Hyperlipidemia, unspecified Category: Medical Qualifiers: Hyperlipidemia type: mixed hyperlipidemia Qualified Code(s): E78.2 - Mixed hyperlipidemia Plan: . (4) HTN (hypertension): Code(s): I10 - Essential (primary) hypertension Category: Medical Qualifiers: Hypertension type: primary hypertension Qualified Code(s): I10 - Essential (primary) hypertension Plan: . (5) Vitamin B12 deficiency without anemia: Code(s): E53.8 - Deficiency of other specified B group vitamins Category: Medical Plan: . (6) PVD (peripheral vascular disease): Comment: 05/2024 ([employer] 06/04/24 Right leg 1.02 WNL, Left leg 0.59 Mild/moderate) based on clinical exam, decreased PP, hairless, monitor skin integrity encourage exercise and smoking cessation Code(s): I73.9 - Peripheral vascular disease, unspecified Category: Medical Plan: . (7) MDD (major depressive disorder), recurrent episode: Code(s): F33.9 - Major depressive disorder, recurrent, unspecified Category: Medical Qualifiers: Major depression episode severity: mild Qualified Code(s): F33.0 - Major depressive disorder, recurrent, mild Plan: . (8) Tobacco dependence: Code(s): F17.200 - Nicotine dependence, unspecified, uncomplicated Category: Medical Plan: . Plan . Orders: Orders Vitamin B12 and Folate 08/08/24 E53.8 - Deficiency of other specified B group vitamins, E78.2 - Mixed hyperlipidemia, I10 - Essential (primary) hypertension CA echo transthoracic complete 06/04/24 I50.9 - Heart failure, unspecified, R01.1 - Cardiac murmur, unspecified Comprehensive Met. Panel 08/08/24 E53.8 - Deficiency of other specified B group vitamins, E78.2 - Mixed hyperlipidemia, I10 - Essential (primary) hypertension Lipid Panel 08/08/24 E53.8 - Deficiency of other specified B group vitamins, E78.2 - Mixed hyperlipidemia, I10 - Essential (primary) hypertension Hemoglobin A1c 08/08/24 E53.8 - Deficiency of other specified B group vitamins, E78.2 - Mixed hyperlipidemia, I10 - Essential (primary) hypertension Referrals Cardiology Referral I50.9 - Heart failure, unspecified Medications: New aspirin 81 mg PO DAILY 90 caps 2RF Refilled atorvastatin 20 mg PO BEDTIME 90 tabs 0RF mecobalamin (vitamin B12) (B12 Active) 2,000 mcg (2 x 1,000 mcg) PO DAILY 90 tabs 3RF Discontinued hydrochlorothiazide Discontinued Reason: Patient no longer taking 25 mg PO DAILY 90 tabs 0RF
[2024-06-04 13:13] VITALS: BP 128/72; PULSE 86; RESP 14; O2SAT 97; BMI 38.0
== END 2024-06-04 13:54 | disposition home or self-care (01) ==
LOC: HO.HMCFM 13:04
PROVIDERS: PCP Nurse Practitioner Family; Visit Provider Nurse Practitioner Family
DX: I50.22 Chronic systolic (congestive) heart failure (principal); I73.9 Peripheral vascular disease, unspecified; F33.0 Major depressive disorder, recurrent, mild; R01.1 Cardiac murmur, unspecified; E78.2 Mixed hyperlipidemia; I10 Essential (primary) hypertension; E53.8 Deficiency of other specified B group vitamins; F17.200 Nicotine dependence, unspecified, uncomplicated

== ENCOUNTER → 2024-06-04 13:03 | Outpatient (BNVA) | payer MEDICARE, SELFPAY | PROVIDERS: PCP Nurse Practitioner Family; Visit Provider Nurse Practitioner Family | DX: I11.0 Hypertensive heart disease with heart failure (principal); I50.22 Chronic systolic (congestive) heart failure; R01.1 Cardiac murmur, unspecified; E78.2 Mixed hyperlipidemia; E53.8 Deficiency of other specified B group vitamins; I73.9 Peripheral vascular disease, unspecified; F33.0 Major depressive disorder, recurrent, mild; F17.200 Nicotine dependence, unspecified, uncomplicated | CPT/HCPCS: 96127; 99212 ==

== ENCOUNTER 2024-06-28 08:41 | Outpatient (REF) | payer MEDICARE, SELFPAY | END 2024-06-28 08:42 | disposition home or self-care (01) | LOC: HO.HOSX 08:41 | PROVIDERS: Visit Provider Physician Assistant | DX: Z13.89 Encounter for screening for other disorder (principal) ==

== ENCOUNTER 2024-07-23 08:25 | Outpatient (REF) | payer MEDICARE, SELFPAY | END 2024-07-23 08:26 | disposition home or self-care (01) | LOC: HO.HOSX 08:25 | PROVIDERS: Visit Provider Physician Assistant | DX: Z13.89 Encounter for screening for other disorder (principal) ==

== ENCOUNTER 2024-09-05 09:48 | Outpatient (AMB) | payer MEDICARE, SELFPAY ==
--- NOTE | 2024-09-05 10:07 | A.OFFPC_ITS ---
Vital Signs 09/05/24 10:15 Height 5 ft 5 in Weight 236 lb BMI 39.3 BP 138/76 Blood Pressure Location Rt brachial Position Sitting Respiration 13 Pulse 56 Pulse Source Pulse Oximeter Temp 97.1 F Temp Source Oral Pulse Oximetry (%) 96 Oxygen Delivery Method Room Air Intake Visit Reasons: 3 months 30 min routine f/u Intake Note: ER [facility] discharge follow up [facility] [employer]er Required: No Allergies Penicillins Allergy (Severe, Verified 09/05/24 11:02) Eye Swelling Medication List - Last Reconciled 09/05/24 by Marilou Navarrete, [facility]- amlodipine 10 mg PO DAILY aspirin 81 mg PO DAILY atorvastatin 20 mg PO BEDTIME cholecalciferol (vitamin D3) 50 mcg PO DAILY mecobalamin (vitamin B12) (B12 Active) 2,000 mcg (2 x 1,000 mcg) PO DAILY metoprolol tartrate 50 mg PO DAILY permethrin 5% 1 appl topical Q14D Tobacco use date assessed: 05/21/24 Dental Screening Dental Screen Date: 05/21/24 HPI HPI Comments History of Present Illness Details Kindra 69 y/o F with HTN, current smoker, menop ause, obesity, Vit d def , right knee osteoarthritis, PVD, CHF, b12 def without anemia, frequent falls Health Maintenance Lung ca screening: referred 05/21/24 Dexa Pap Colon referred 05/21/24 Mammo Tdap/flu 05/21/24 Specialists GI waiting on appt ortho 06/18/24 for initial consult Derm 06/2024 Leonardo Derm initial derm Cards Pulm Here today for routine fu of chronic conditions as well as a hospital discharge follow up. Emergency room visit [facility] on 08/18/2024 with several complaints. She was 1st seen on July 09 day 1 after testing positive for COVID. She returned to the emergency room on August 18 with complaints of bilat fingertip paresthesias, pain on her right arm, pain between her shoulder blades and occasional fluttering in her chest. She further complained of edema but then st ates that she self discontinued her diuretic given the increase in urination. She was noted to be hypertensive. Urine was done and within normal limits, her RBC was 3.93, her proBNP was 351 but otherwise labs were clinically insignificant chest x-ray showed no acute disease process. EKg shows sinus farnaz Today she reports that the swelling in her bilateral lower extremities is now gone. She did take the hydrochlorothiazide 25 mg that was previously prescribed by me for a few days which resulted in improvement in her edema. 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 She is right-hand dominant. She does report that the paresthesias can sometimes come from her elbows as well. She reports that she is taking her vitamin B12 as directed as she has known B12 deficiency. Vitamin-D deficiency she is tolerating compliant of her vitamin-D supplement. Tobacco dependence: She continues to smoke however she has reduced down to 1-2 cigarettes per day. She was referred to a lung cancer screening at [facility] however she does not prefer to go to [place]. I referred her to [facility] in [place] however she has not made this appointment yet. The information for this was provided to her today. She was state that she feels short of breath with exertion. She also does report that being inside without having the windows open can worsen her breathing. She is currently living on the 4th floor with only 2 windows in her apartment and she was requesting a letter with request for accommodations to 1st floor apartment that would allow her to have a door open for air as well. This letter was written and provided to her today. CHF hypertension and CAD: She is tolerating compliant with her aspirin, statin and beta-deepak. She is currently taking metoprolol 50 mg p.o. daily. She was referred to Cardiology at [facility] once again she does not prefer to go to [place]. I updated the referral today for [facility]. She denies any chest pain. She does report continued edema bilateral lower extremities. She did see Dermatology for the evaluation of her rash. She was diagnosed with facial dandruff and treated with a cream. She was scheduled for a follow up however she missed it due to inclement weather. She may or may not reschedule derm - saw x 1 dx w face dandruff treated w/ cream and missed fu as it was snowing She brought me a letter for plasma donation for medical clearance. The form was completed and faxed per her request Exam: Awake alert NAD Bradycardic, RR, 2/6 systolic murmur Clear and dim throughout Nonpitting edema BLE L>R, decreased PP, + varicose veins, skin intact BUE neurovasc intact, decreased career services officer strength R hand, no obvious deformity, erythema edema or warmth. Plan: The information for her referrals to [facility] cardiology and pulmonology were provided to her today. I have advised her to reduce her metoprolol from 50 mg to 25 mg daily by splitting her tablets in half to improve the bradycardia noted today on the exam. Bradycardia was also noted on her recent emergency room visit EKG. We had a discussion about taking the hydrochlorothiazide. She reports that she suffers from urinary incontinence without this medication and that with the addition of this medication she has constant leaking to the point that she was not able to leave her home. Discussed the diagnosis of CHF and the implications for this medication. She reports that she fully understands now why she needs this medication is open to taking it. She has plenty at home and we will start taking today. I have also referred her to Urology at [facility] to help her with her urinary incontinence. I have placed a referral to [facility] hand surgery for evaluation of the paresthesias and bilat hands. The labs in the emergency room were reviewed and are stable. I did check her lipid profile today And this is much improved with a total cholesterol of 176, LDL 99, HDL 49, triglycerides 142, B12 is normal at 692 folate is normal, hemoglobin A1c is 5.6%. Therefore we will keep her on her current dose of B12 and her atorvastatin. I would like to see her back in 3 months for routine follow up sooner should anything change. Reminded her to use the patient portal as a primary source of communication to ensure timely follow up. This note is constructed using voice recognition software. While every effort has been made to ensure accuracy in tierce filler, still errors may have been included Sometimes, these errors may affect the content or meaning of the given sentence . Total time spent caring for the patient today was 60 minutes. This includes time spent before the visit reviewing the chart, time spent during the visit, and time spent after the visit on documentation, reviewing laboratory results, diagnostic imaging, medications, performing a medically necessary evaluation, counseling on diagnoses, care coordination, ordering appropriate tests, ordering appropriate medications, review of tests performed by other providers, reporting test results with the patient, communication with other [facility] providers. [facility] Social History (System 05/22/24 @ 07:46 by Maira Alexander) Household Members: None Housing: Apartment Are you a primary resident care manager to a significant other at home: No Do you presently have visiting nurse or other home services: Yes ([facility]) 75 years or older and lives alone: No Alcohol intake: current Alcohol intake frequency: a few times a week Patient Tobacco Use Status: Current everyday Tobacco user Tobacco use type: Cigarette Cigarettes Per Day: 3 Years Smoked: 50 e-Cigarette/Vaping Use: Never Used service: No Current occupational status: employed and retired 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 1. Little interest or pleasure in doing things: nearly every day 2. Feeling down, depressed, or hopeless: nearly every day 3. Trouble falling or staying asleep, or sleeping too much: nearly every day 4. Feeling tired or having little energy: nearly every day 5. Poor appetite or overeating: nearly every day 6. Feeling bad about yourself - or that you are a failure or have let yourself or your family down: several days 7. Trouble concentrating on things, such as reading the newspaper or watching television: several days 8. Moving or speaking so slowly that other people could have noticed. Or the opposite - being so fidgety or restless that you have been moving around a lot more than usual: several days 9. Thoughts that you would be better off or of hurting yourself in some way: more than half the days Total score: 20 Depression Screening Interpretation: Positive Depression Screening Follow-up: Existing condition Depression Screening Done: Yes 99477 - PHQ-9 Billing: Yes Source: Developed by Drs. Raymundo Higgins, Claudia Angulo, Mac Foote and colleagues, with an educational mireya from [employer]. Thrive Questionnaire Date Thrive assessed: 09/05/24 I am a: Patient What is your living situation today?: I have a steady place to live Within the past 12 months, did the food you bought not last and you didn't have the money to get more?: Sometimes True Within the past 12 months, did you worry whether your food would run out before you got money to buy more?: Sometimes True Do you have trouble paying for medicines?: No Do you have trouble getting transportation to medical appointments?: No Do you have trouble paying your heating and electricity bill?: No Do you have trouble taking care of your child, family member or friend?: No Do you have trouble with day-to-day activities such as bathing, preparing meals, shopping, managing finances, etc.?: Yes Are you currently unemployed and looking for a job?: No Are you interested in more education?: No Please select the resources that you would like help with: Housing/Prison and Food Currently or been in a relationship where the following occur: No concerns reported THRIVE Score: 2 AUDIT C Alcohol Use Questionnaire (AUDIT-C) 1. How often do you have a drink containing alcohol?: Monthly or less 2. How many drinks containing alcohol do you have on a typical day when you are drinking?: 1 or 2 3. How often do you have six or more drinks on one occasion?: Monthly Total Score: 3 Score Reviewed/Action Taken: Yes OMA-7 AMB Questionnaire OMA-7 Date OMA - 7 assessed: 09/05/24 Feeling nervous, anxious, or on edge: 1 = Several days Not being able to stop or control worryin = Several days Worrying too much about different things: 1 = Several days Trouble relaxin = Several days Being so restless that it is hard to sit still: 1 = Several days Becoming easily annoyed or irritable: 1 = Several days Feeling afraid as if something awful might happen: 1 = Several days Total OMA-7 score (0-4 normal; 5-9 mild; 10-14 moderate; 15-21 severe): 7 Source: Developed by Drs. Raymundo Higgins, Claudia Angulo, Mac Foote and colleagues, with an educational mireya from [employer]. OMA-7 Assessment Billing OMA-7 Assessment Tool: OMA-7 Assessment 79762 Physical exam (Primary Care) Vital Signs: Last Vital Signs Temp 97.1 F 09/05/24 10:15 Pulse 56 09/05/24 10:15 Resp 13 09/05/24 10:15 BP 138/76 09/05/24 10:15 Pulse Ox 96 09/05/24 10:15 Oxygen Delivery Method Room Air 09/05/24 10:15 BMI result Body Mass Index 39.3 BMI Assessment/Plan discussion: High BMI High, discussed plan: lifestyle Tobacco/Smoking Status: Tobacco use Status Tobacco use date assessed 05/21/24 09/05/24 10:09 Patient Tobacco Use Status Current everyday Tobacco 09/05/24 10:09 Tobacco use type Cigarette 09/05/24 10:09 e-Cigarette/Vaping Use Never Used 09/05/24 10:09 Are you ready to quit: No Tobacco cessation counseling provided: Yes Items discussed: Nicotine replacement, QuitWorks and Other Relapse Prevention: discussed the importance of a supportive environment, discussed extending NRT, discussed negative mood or depression after quitting, weight gain after smoking is common and discussed dietary, exercise and/or lifestyle changes Number of minutes spent counselin CPT code: 90810 - 4-10 Minutes PHQ-9: PHQ-9 Score PHQ-9: Total score 20 09/05/24 11:00 Depression Screening Interpretation: Positive Depression Screening Follow-up: Existing condition Thrive Assessment: Date of Thrive Assessment Date Thrive assessed 09/05/24 09/05/24 10:09 Currently or been in a relationship where the following occur: No concerns reported Coding Level of Care Code Est Pt Level 5 (08907) Complex EM visit Add On G2211 Diagnoses Chronic systolic congestive heart failure I50.22 Heart failure chronicity: chronic Heart failure type: systolic Primary hypertension I10 Hypertension type: primary hypertension Mixed hyperlipidemia E78.2 Hyperlipidemia type: mixed hyperlipidemia PVD (peripheral vascular disease) I73.9 Paresthesia of both hands R20.2 Right hand weakness R29.898 Continuous leakage of urine N39.45 Urinary Incontinence type: continuous leakage Mild episode of recurrent major depressive disorder F33.0 Major depression episode severity: mild Tobacco dependence F17.200 Vitamin B12 deficiency without anemia E53.8 Hospital discharge follow-up Z09 BMI 39.0-39.9,adult Z68.39 Severe obesity (BMI 35.0-39.9) with comorbidity E66.01 OMA (generalized anxiety disorder) F41.1 Heart murmur R01.1 Additional Codes OMA-7 Assessment Billing - OMA-7 Assessment Tool: MOA-7 Assessment 37286 ([id number]) PHQ-9 - 50868 - PHQ-9 Billing: Yes ([id number]) Vital Signs *Quality* - CPT code: 01489 - 4-10 Minutes ([id number]) Assessment & Plan Assessment & Plan (1) CHF (congestive heart failure): Code(s): I50.9 - Heart failure, unspecified Category: Medical Qualifiers: Heart failure chronicity: chronic Heart failure type: systolic Qualified Code(s): I50.22 - Chronic systolic (congestive) heart failure (2) HTN (hypertension): Code(s): I10 - Essential (primary) hypertension Category: Medical Qualifiers: Hypertension type: primary hypertension Qualified Code(s): I10 - Essential (primary) hypertension (3) Hyperlipidemia: Comment: LDL goal <70 Code(s): E78.5 - Hyperlipidemia, unspecified Category: Medical Qualifiers: Hyperlipidemia type: mixed hyperlipidemia Qualified Code(s): E78.2 - Mixed hyperlipidemia (4) PVD (peripheral vascular disease): Comment: 05/2024 ([employer] 06/04/24 Right leg 1.02 WNL, Left leg 0.59 Mild/moderate) based on clinical exam, decreased PP, hairless, monitor skin integrity encourage exercise and smoking cessation Code(s): I73.9 - Peripheral vascular disease, unspecified Category: Medical (5) Paresthesia of both hands: Code(s): R20.2 - Paresthesia of skin Category: Medical (6) Right hand weakness: Code(s): R29.898 - Other symptoms and signs involving the musculoskeletal system Category: Medical (7) Urine incontinence: Code(s): R32 - Unspecified urinary incontinence Category: Medical Qualifiers: Urinary Incontinence type: continuous leakage Qualified Code(s): N39.45 - Continuous leakage (8) MDD (major depressive disorder), recurrent episode: Code(s): F33.9 - Major depressive disorder, recurrent, unspecified Category: Medical Qualifiers: Major depression episode severity: mild Qualified Code(s): F33.0 - Major depressive disorder, recurrent, mild (9) Tobacco dependence: Comment: referred for lung ca screening Smoking Cessation How to Quit There are a lot of ways to quit smoking and many resources to help you. Family members, friends, and co-workers may be supportive or encouraging, but to be successful the desire and commitment to quit must be your own. Most people who have been able to successfully quit smoking made at least one unsuccessful attempt in the past. Try not to view past attempts to quit as failures, but rather as learning experiences. Stopping smoking or using smokeless tobacco is difficult, but anyone can do it. Know the symptoms to expect when you stop. Common symptoms include: ? An intense craving for nicotine ? Anxiety, tension, restlessness, frustration, or impatience ? Difficulty concentrating ? Drowsiness or trouble sleeping, as well as bad dreams and nightmares ? Drowsiness and trouble sleeping ? Headaches ? Increased appetite and weight gain ? Irritability or depression How severe your symptoms are depends on how long you smoked and how many cigarettes you smoked each day. Feel ready to quit? ? First and foremost, set a quit date and quit completely on that day. Before your quit date, you may begin reducing your cigarette use. But remember, there is no safe level of cigarette smoking. ? List the reasons why you want to quit. Include both short- and long-term benefits. ? Identify the times you are most likely to smoke. For example, do you tend to smoke when feeling stressed or down? When out at night with friends? While drinking coffee or alcohol? When bored? While driving? Right after a meal or sex? During a work break? While watching TV or playing cards? When you are with other smokers? ? Let all of your friends, family, and co-workers know of your plan to stop smoking and your quit date. Just being aware that they know what you're going through can be helpful, especially when you are grumpy. ? Get rid of all your cigarettes just before the quit date, and clean out anything that smells like smoke, such as clothes and furniture. Make a plan about what you will do instead of smoking at those times when you are most likely to smoke. ? Be as specific as possible. For example, drink tea instead of coffee -- tea may not trigger the desire for a cigarette. Or, take a walk when you feel stressed. ? Remove ashtrays and cigarettes from the car. Place pretzels or hard candies there instead. Pretend-smoke with a straw. ? Find activities that focus your hands and mind but are not taxing or fattening. Computer games, solitaire, knitting, sewing, and crossword puzzles may help. ? If you normally smoke after eating, find other ways to end a meal. Play a tape or CD, eat a piece of fruit, get up and make a phone call, or take a walk (a good distraction that also wong calories). Make other changes in your lifestyle. ? Change your daily schedule and habits. Eat at different times or eat several small meals instead of three large ones. Sit in a different chair or even a different room. ? Satisfy your oral habits by eating celery or other low-calorie snack, chewing sugarless gum, or sucking on a cinnamon stick. ? Go to public places and restaurants where smoking is prohibited or restricted. ? Eat regular meals and don't eat too much candy or sweet things. ? Get more exercise. Take walks or ride a bike. Exercise helps relieve the urge to smoke. Set short-term quitting goals and reward yourself when you meet them. ? Every day, put the money you normally spend on cigarettes in a jar. Then buy something pleasurable after a period of time. ? Try not to think about all the days ahead you will need to avoid smoking. Take it one day at a time. ? Even one puff or one cigarette will make your desire for more cigarettes even stronger. However, it is normal to make mistakes. So even if you have one cigarette, you don't need to take the next one. Other tips to help you quit smoking and stick to it: ? Enroll in a smoking cessation program (hospitals, health departments, community centers, and work sites often offer programs). Learn about self-hypnosis or other techniques. ? Ask your health care provider about prescription medications that are safe and appropriate for you. ? Find out about nicotine patches, gum, and sprays. The [employer]'s web site -- www.cancer.org -- is an excellent resource for smokers who are trying to quit, and the [employer] can help some smokers kick the habit. Above all, don't get discouraged if you aren't able to quit smoking the first time. Nicotine addiction is a hard habit to break. Try something different next time. Develop new strategies, and try again. Many people take several attempts to finally kick the habit. Code(s): F17.200 - Nicotine dependence, unspecified, uncomplicated Category: Medical (10) Vitamin B12 deficiency without anemia: Code(s): E53.8 - Deficiency of other specified B group vitamins Category: Medical (11) Hospital discharge follow-up: Code(s): Z09 - Encounter for follow-up examination after completed treatment for conditions other than malignant neoplasm (12) BMI 39.0-39.9,adult: Code(s): Z68.39 - Body mass index [BMI] 39.0-39.9, adult Category: Medical (13) Severe obesity (BMI 35.0-39.9) with comorbidity: Comment: htn and hld Code(s): E66.01 - Morbid (severe) obesity due to excess calories Category: Medical (14) OMA (generalized anxiety disorder): Code(s): F41.1 - Generalized anxiety disorder Category: Medical (15) Heart murmur: Code(s): R01.1 - Cardiac murmur, unspecified Category: Medical Plan . Orders: Referrals Urology Referral R32 - Unspecified urinary incontinence Hand Surgery Referral R20.2 - Paresthesia of skin, R29.898 - Other symptoms and signs involving the musculoskeletal system Medications: New hydrochlorothiazide 25 mg PO DAILY 30 tabs 0RF Patient Instructions: start taking hydrochlorothiazide again every day decrease your metoprolol from 50mg to 25mg daily as your heart rate is low Please call the branch manager trainee and supervisor inspection department at [facility] to schedule your appointments New referral for Urology at [facility] placed today, please call to schedule appointment Continue taking all other meds Please get labs done today to evaluate your b12 levels and cholesterol work on quitting smoking i faxed your [employer] forms Finally i referred you to hand specialist in [place], please call to schedule appointment
[2024-09-05 10:15] VITALS: BP 138/76; PULSE 56; RESP 13; TEMP 36.2; O2SAT 96; BMI 39.3
--- OUTSIDE RECORDS SUMMARY | 2024-09-05 11:34 | XMS_ITS | Data Portability ---
Author Organization [facility], [facility] Address [address] [place] [phone] Assessment No assessment recorded. Plan of Treatment Reminders Order Date Submit Date Provider Last Modified By Organization Details Last Modified Time Details Appointments None recorded. Lab None recorded. Referral None recorded. Procedures None recorded. Surgeries None recorded. Imaging None recorded. Medication Orders doxycyclin e hyclate 100 mg capsule 2018 019 INTERFACE [facility] [place], [address], 9 14:39:12 prednisone 10 mg tablet 2018 019 INTERFACE [facility] [address] [place], [address], 9 14:39:13 Patient TargetsNo targets recorded. Patient InstructionsNo instructions recorded. Reason for Referral None Reported. Problems Name Problem SNOMED Code Status Onset Date Resolution Date Notes Provider Name and Address Organization Details Recorded Time Essential hypertension 88701020 Active 2018 KIARRA Alba [address] [place] [address], [place], [phone], [facility]/WIP 9 14:03:20 Chronic obstructive pulmonary disease 66419644 Active 2018 KIARRA Alba [address] [address], [place], [phone], [facility]/WIP 9 14:03:27 Problem Notes None recorded. Medical Equipment None Reported. Medications Name Sig Start Date Stop Date Status Note LastModified by Organization Details LastModified Time prednisone 10 mg tablet 4 tablets qd for 3days,th en 3 tablets qd for 3 days,the n 2 tablets qd for 3 days and 1 tablet qd for 3 tablets 2018 active Not Available Not Available Not Avai lable doxycycline hyclate 100 mg capsule Take 1 capsule twice a day by oral route for 5 days. 2018 active Not Available Not Available Not Avai lable ibuprofen 800 mg tablet 10/31 completed Not Available Not Available Not Available promethazine 12.5 mg tablet 10/31 completed Not Available Not Available Not Available metronidazol e 500 mg tablet 10/31 completed Not Available Not Available Not Available acetaminophe n 300 mg-codeine 30 mg tablet 10/31 completed Not Available Not Available Not Available amlodipine 10 mg tablet active Not Available Not Available Not Available misoprostol 200 mcg tablet 10/31 completed Not Available Not Available Not Available metoprolol tartrate 50 mg tablet active Not Available Not Available No t Available Vitals Date Recorded Body temperature Systolic blood pressure Diastolic blood pressure Provider Name and Address Organization Details Last Updated DateTime 10/31/2018 98.6 [degF] 124 mm[Hg] 78 mm[Hg] Yael Blackman [place] - PMA /WIP 10/31/2018 13:41:52 Social History None recorded. Functional Status None recorded. Mental Status None recorded. Family History Nothing Reported. Medical History No medical history recorded. Gynecological HistoryNo gynecological history recorded. Obstetrics History GPAL:G 0 P 0 0 0 0 Past Encounters Encounter ID Performer Location Encounter Start Date Encounter Closed Date Diagnosis/Indication Diagnosis SNOMED-CT Code Diagnosis ICD10 Code Diagnosis Note [id number] KIARRA Alba [facility] [address] [place] [phone] 10/31/2018 13:24:58 10/31/2018 14:50:54 Acute exacerbation of chronic obstructive pulmonary disease 131961256 J44.1 - Rest and fluids - continue using the nebulizer - note to work Health Concerns Section Related Observation LastModified by Organization Detai ls LastModified Time None Recorded Concern Status LastModified by Organization Details LastModified Time None Recorded Advance Directives Directive None Recorded Payers Encounter Date Sequence Insurance Name Policy Number Policy Brooks Covered Member ID Brooks Member ID Guarantor Name 10/31/[address] [place] [address] [id number] Janeth Hughes [id number] Janeth Hughes Notes Date Note Type Note Provider Name and Address Organization Details Recorded Time 10/31/2018 text/html 63 yo F is here c/o productive cough, congestion, chills and hot for the past 4 days. Taking alkaseltzer plus, cold medicine from [employer] not helping much. Having rib pain due to the couging or SOB after the cough, wheezing, swelling in the legs. Allergies: PCN Medication: amlodipine and metoprolol PCP: Dr. Nayak PmHX: HTN, COPD social: 5 cigarettes a day. KIARRA Alba [address] [place] [address], [facility] [address], [place], [phone], [place] - PMA/WIP 10/31/2018 14:39:39 OBGyn Episode No OBEpisode recorded.
--- OUTSIDE RECORDS SUMMARY | 2024-09-05 11:34 | XMS_ITS | Data Portability ---
Author Organization [facility], [facility] [employer] Address [address] [place] [address] Assessment Encounter Date Assessment Date Assessment LastModified by Organization Details LastModified Time 03/12/2021 03/12/2021 Pt presented for BP check. BP 160/82 left arm, pulse 96. Pt's BP improved from previous reading of 178/99 on 03/02/21. Pt is currently taking Amlodipine 10mg daily and Metoprolol 50mg TID. Pt advised to continue current BP medication regimen and call back for f/up BP check as needed. Pt stated her understanding and stated she has also been making changes to her diet decreasing salt, sugar and carbs. -Zoë Lambert RN [email or web address] Not available 03/12/2021 14:09:57 Plan of Treatment Reminders Order Date Submit Date Provider Last Modified By Organization Details Last Modified Time Details Appointments None recorde d. Lab hemoglo bin A1C/hem oglobin total, QN, blood 2020 021 RENU Not available 12:38:40 CMP, serum or plasma 2020 021 RENU Not available 12:14:02 BNP (B-type natriur etic peptide ), serum or plasma 2020 021 RENU Not available 12:14:02 vitamin D, 25-hydr oxy, total, serum 2021 022 fany [facility], [address] [place], [address], 2 10:12:08 TSH, serum or plasma 2021 022 fany [facility], [address] [place], [address], 2 10:12:08 lipid panel, blood 2021 022 fany [facility], [address] [place], [address], 2 10:12:08 CMP, serum or plasma 2021 022 fany [facility], [address] [place], [address], 2 10:12:07 CBC w/ diff 2021 022 fany [facility], [address] [place], [address], 2 10:12:08 vitamin D, 1,25-di hydroxy , serum 2022 023 fany [facility], [address] [place], [address], 3 10:07:31 lipid panel, serum 2022 023 fany [facility], [address] [place], [address], 3 10:07:31 CMP, serum or plasma 2022 023 [email or web address] [facility], [address] [place], [address], 3 07:40:07 CBC w/ auto diff 2022 023 [email or web address] [facility], [address] [place], [address], 3 10:07:31 Referral cardiol ogist referra l 2020 021 [facility] (Cardiology), [address] [place] [address] [place], [address], 1 11:47:08 orthope dic surgeon china Rodrigez L shoulde r injury 2021 022 [facility], [address] [place], [address], 2 20:50:45 orthope dic surgeon china medeiros - bilater al CTS and right knee injecti on hx 2021 022 [email or web address] [facility] (Jalil Lubin), [address] [place], [address], 3 07:33:18 Procedures None recorde d. Surgeries None recorde d. Imaging XR, knee, 3 view - right 2020 021 [facility] ([facility]), [address] [place] [address], [address], 1 10:45:13 pharmac ologic stress test 2020 021 [email or web address] [facility] ([facility]), [address] [place] [address], [address], 2 10:20:09 US, echocar diogram , transth oracic, complet e - Dyspnea on exertio n 2020 021 [facility] (Central Scheduling), [address] [facility], [place], [address], 1 15:20:03 XR, chest, 2 view 2020 021 [facility] ([facility]), [address] [place] [address], [address], 1 15:34:01 XR, shoulde r, 2 or more view 2021 022 [facility] ([facility]), [address] [place] [address], [address], 12:23:18 MAMMO, screeni lacy neal 2021 022 [facility], [address] [place], [address], 3 08:27:52 LDCT, chest, for lung cancer screeni val 2022 023 [facility] (Central Scheduling), [address] [facility], [place], [address], 3 06:52:27 Medication Orders aspirin 81 mg tablet, delayed release 2020 021 [facility], [address] [place] [address], [place], [address], 1 08:05:24 aspirin 81 mg tablet, delayed release [address] [facility], [address] [place], [address], 2 10:28:48 metopro lol tartrat e 50 mg tablet [address] [facility], [address] [place], [address], 2 10:28:48 Patient TargetsNo targets recorded. Patient Instructions Encounter Date Encounter Id Patient Instructions Last Modified By Organization Details Last Modified Time 03/02/2021 [id number] smoking cessatio n counseling, greater than 3 minutes up to 10 minutes* RENU Not available 03/02/2021 10:09:02 09/10/2021 [id number] irritable bowel syndrome: care instructions [email or web address] Not available 09/10/2021 15:21:21 03/01/2022 [id number] learning about healthy weight Not available 03/01/2022 10:28:49 01/14/2023 [id number] smoking cessatio n counseling, greater than 3 minutes up to 10 minutes* [email or web address] Not available 01/14/2023 15:33:18 learning about healthy weight [email or web address] Not available 01/14/2023 15:33:18 Reason for Referral Iron Setter Referral for At rial fibrillation Referring Physician: Linda Vuong [facility], Encounter Date: 03/02/2021 Orthopedic Surgeon Referral for Injury of left shoulder L shoulder injury Referring Physician: Family Stephy Downing, Encounter Date: 09/10/2021 Orthopedic Surgeon Referral for Bilateral carpal tunnel syndrome bilateral CTS and right knee injection hx Referring Physician: Linda Vuong [facility] Stephy, Encounter Date: 03/01/2022 Results Created Date Observation Date Name Description Value Unit Range Abnormal Flag Note LastModifiedBy Organization Detail LastModifiedTime 03/02/20 21 03/02/2021 COMPR EHENS HERMELINDA METAB OLIC PANEL sodium 141 mEq/L 135-14 5 normal Not Available [address] [place] [address], [address], 03/02/2021 12:14:02 03/02/20 21 03/02/2021 COMPR EHENS HERMELINDA METAB OLIC PANEL potassium 4.0 mEq/L 3.5-5. 1 normal Not Available [address] [place] [address], [address], 03/02/2021 12:14:02 03/02/20 21 03/02/2021 COMPR EHENS HERMELINDA METAB OLIC PANEL chloride 109 mEq/L 98-112 normal Not Available [address] [place] [address], [address], 03/02/2021 12:14:02 03/02/20 21 03/02/2021 COMPR EHENS HERMELINDA METAB OLIC PANEL carbon dioxide 27 mEq/L 20-32 normal Not Available [address] [place] [address], [address], 03/02/2021 12:14:02 03/02/20 21 03/02/2021 COMPR EHENS HERMELINDA METAB OLIC PANEL anion gap 5 mEq/L 5-15 normal Not Available [address] [facility] [address] [place] [address], [address], 03/02/2021 12:14:02 03/02/20 21 03/02/2021 COMPR EHENS HERMELINDA METAB OLIC PANEL blood urea nitrogen (BUN) 11 mg/dL 6-23 normal Not Available [address] [facility] [facility] [address] [place] [address], [address], 03/02/2021 12:14:02 03/02/20 21 03/02/2021 COMPR EHENS HERMELINDA METAB OLIC PANEL creatinine 0.80 mg/dL 0.00-1 .30 normal Not Available [address] [place] [address] [address] [place] [address], [address], 03/02/2021 12:14:02 03/02/20 21 03/02/2021 COMPR EHENS HERMELINDA METAB OLIC PANEL est.glomerul ar filtration rate > 60 Units : mL/mi n/1.7 3 m2 Estim ated GFR (eGFR ) shoul d not be used for patie nts with acute kidne y injur y or ESRD (crea tinin e shoul d be at stead y state and stabl e to use). eGFR is calcu lated using the 2009 CKD-E PI creat inine equat ion, which is now the recom marli d equat ion to estim ate GFR based on creat inine per lates t KDIGO (Kidn ey Disea se Impro ving Globa l Outco mes) Guide lines . KDIGO recom mends CKD now be class ified based on cause , GFR categ ory, and album inuri a categ ory. GFR categ ories will not be repor chris by the lab for G1 or G2 (eGFR >60). GFR categ ories shoul d be assig gordon as: eGFR 45-59 = G3a (mild ly to moder ately decre ased) , eGFR 30-44 = G3b (mode ratel y to sever sandra decre ased) , eGFR 15-29 G4 (marc rely decre ased) , eGFR< 15 G5 (kidn ey failu re). Not Available [address] [place] [address] [address] [place] [address], [address], 03/02/2021 12:14:02 03/02/20 21 03/02/2021 COMPR EHENS HERMELINDA METAB OLIC PANEL glucose 111 mg/dL 70-100 high Fasti ng Refer ence Inter chepe: 70-10 0mg/d L Non-f astin g Refer ence Inter chepe: 70-14 0mg/d L Not Available [address] [place] [address], [address], 03/02/2021 12:14:02 03/02/20 21 03/02/2021 COMPR EHENS HERMELINDA METAB OLIC PANEL calcium 8.8 mg/dL 8.1-10 .4 normal Not Available [address] [place] [address], [address], 03/02/2021 12:14:02 03/02/20 21 03/02/2021 COMPR EHENS HERMELINDA METAB OLIC PANEL bilirubin total 0.3 mg/dL 0.2-1. 3 normal Not Available [address] [place] [address], [address], 03/02/2021 12:14:02 03/02/20 21 03/02/2021 COMPR EHENS HERMELINDA METAB OLIC PANEL aspartate amino transferase 12 IU/L 15-37 low Not Available [address] [place] [address], [address], 03/02/2021 12:14:02 03/02/20 21 03/02/2021 COMPR EHENS HERMELINDA METAB OLIC PANEL alanine aminotransfe rase 25 IU/L 13-56 normal Not Available [address] [place] [address], [address], 03/02/2021 12:14:02 03/02/20 21 03/02/2021 COMPR EHENS HERMELINDA METAB OLIC PANEL total protein 6.7 g/dL 5.9-7. 9 normal Not Available [address] [place] [address], [address], 03/02/2021 12:14:02 03/02/20 21 03/02/2021 COMPR EHENS HERMELINDA METAB OLIC PANEL albumin 3.4 g/dL 2.9-4. 7 normal Not Available [address] [place] [address], [address], 03/02/2021 12:14:02 03/02/20 21 03/02/2021 COMPR EHENS HERMELINDA METAB OLIC PANEL alkaline phosphatase 96 IU/L 18-210 normal Not Available [address] [place] [address], [address], 03/02/2021 12:14:02 03/02/20 21 03/02/2021 NT PRO B TYPE NATRI URETI C PEPT nt pro B type natriuretic pept 36 pg/mL 0-125 normal Not Available [address] [place] [address], [address], 03/02/2021 12:14:02 03/02/20 21 03/02/2021 HEMOG LOBIN A1C hemoglobin A1C 6.1 % 4.4-6. 3 normal Not Available [address] [place] [address], [address], 03/02/2021 12:38:39 01/15/20 23 01/14/2023 smoki ng cessa tion couns eling , great er than 3 minut es up to 10 minut es* Counseling Yes Not Available In-Offi ce Order Internal Use Only DO Not Attach Compendium DO Not Attach Compendium, Do Not Delete/merge, [address] 01/14/2023 15:32:20 03/02/20 21 03/02/2021 XR, knee, 3 view [facility] g [address] [place] [address] X-Ray Report Signed Tarik t: Josué Hughes lucy 4935 : [address]: Lorin Hearn EMR ID: [id number] Age/Se x: 65/F E.D. Attend ing: Acct: [id number] Loc: RAD.6N PCP: Lorin ny Wallac e, COIL CUTTER Admit/ Svc Date: Orderi ng Physic aileen: Lorin Hearn NP Date of Servic e: Proced ure(s) : XR knee RT 3V Reason for Exam: Right knee pain Access ion Number (s): [id number] Fax to: cc: Lorin Hearn, COIL CUTTER RIGHT KNEE, THREE VIEWS 021 8:36 AM Techni que: AP, latera l and obliqu e views of the right knee. Findin gs: No fractu re or disloc ation. Mild genera lized osteoa rthrit is. Trace joint fluid. The soft tissue s are normal . Statio n: [id number] Electr onical ly signed on at 1040 by Berny Mena MD. KBUSHE Y [facility] (Radiology) [address] [place] [address], [address], 03/02/2021 14:48:36 04/06/20 21 04/06/2021 US, echoc ardio gram, trans thora cic, [facility] Cardio logy [facility] Comple x [address] [place] [address] Cardio vascul ar Report Signed Patien t: Saul Josué ll 4935 : [address]: Lorin Hearn EMR ID: [id number] Age/Se x: 65/F E.D. Attend ing: Acct: [id number] Loc: CAV.BE PCP: Lorin Hearn NP Admit/ Svc Date: Orderduane neal Physic aileen: Lorin Hearn NP Date of Servic e: Proced ure(s) : CV echo transt marisela c comple te Reason for Exam: dyspne a on exerti on Access ion Number (s): [id number] Fax to: cc: Lorin Hearn, COIL CUTTER l1 n 3 Echoca rdiogr aphy Examin ation Transt horaci c Name: Josué Hughes Access ion#: [id number] MR#: [id number] Admiss ion Number : [id number] Study Date: 2020 Study Time: 02:31 PM Date Of : 1955 Age: 65 year(s ) Height : 65 in. (165.1 cm) Weight : 250 lbs. (113.4 0 kg) BSA: 2.17 m2 Gender : Female Blood Pressu re: 144 mmHg / 80 mmHg Heart Rate: Proced ure Staff CV Sonogr apher: Vinita Ramireza c Sonogr apher Orderi ng Physic aileen: Lorin ny Wallac e Readin g Physic aileen: Mohan Yang, DO Admitt ing Physic aileen: Lorin ny Wallac e Indica tion: Cardia c: dyspne a Conclu sions Left Ventri anyi: * Left ventri anyi upper limits of normal . * LVEF range is estima chris at 55 % -60 %. * No region al wall motion abnorm ality identi fied, limite d sensit ivity. * Normal diasto lic LV functi on. Mitral Valve: * No signif icant mitral regurg itatio n. Aortic Valve: * No signif icant aortic valve regurg itatio n. Tricus pid Valve: * Trivia l tricus pid regurg itatio n. Overal l Conclu sions: * No major change s noted when compar ed to prior echoca rdiogr am report dated 020 Leann Montanez t: Josué lucy Hughes [facility] ion: [id number] Study Date: 2020 02:31 PM Page 1 of 4 Left Ventri anyi: Left ventri anyi upper limits of normal . The left ventri anyi diasto lic volume is normal . The left ventri anyi systol ic volume is normal . Normal global systol ic LV functi on. EF evalua chris by Mehran ferrara. LVEF range is estima chris at 55 % -60 %. No region al wall motion abnorm ality identi fied, limite d sensit ivity. Normal diasto lic LV functi on. IVS: Interv entric ular septal thickn ess is mildly increa sed. Right Ventri anyi: Normal size right ventri anyi. Normal RV functi on. Left Atrium : The left atrium is mildly dilate d. IAS: Normal appear ing atrial septum . Right Atrium : The right atrium is normal in size. Mitral Valve: Mitral leafle ts exhibi t normal cuspal separa tion. No signif icant mitral regurg itatio n. No mitral valve stenos is. Aortic Valve: No signif icant aortic valve regurg itatio n. No aortic valve stenos is. The aortic valve is not visual ized well enough to rule out a bicusp id morpho logy. Tricus pid Valve: Tricus pid valve leafle ts are normal . Trivia l tricus pid regurg itatio n. No tricus pid valve stenos is. Tricus pid Valve Measur ements RVSP: 34 mmHg. RA Pressu re: 3 mmHg. Pulmon ic Valve: Pulmon ic valve is poorly visual ized. No signif icant pulmon reginaldo regurg itatio n. No pulmon ic valve stenos is. Aorta: No dilata tion of the aorta. Great Vessel s: IVC: The IVC is normal sized. There is inspir atory collap se of the IVC. Perica rdium: The perica rdium is normal in appear ance. No perica rdial effusi on. Systol ic Pulmon reginaldo Pressu re (TR): The systol ic CVP at rest is 3 mmHg. Exam Detail s Proced ure Ordere d: CV echo transt horaci c comple te Proced ure Compon ents: Comple te 2D imagin g, M-mode , Comple te spectr al Dopple r, Color Dopple r Proced ure Views: Images were obtain ed from the parast ernal, apical , subcos harjinder, and supras ternal notch acoust ic window s Proced ure Status : Routin e study Image Qualit y: [place] te Facili ty Locati on: [facility] Out Patien t Measur ements Left Ventri anyi Aortic Valve Label Value Normal Value Label Value Normal Value LVOT Vmax 1.30 m/s (0.7m/ s - 1.1m/s ) AV PGmax 13 mmHg LVOTd 2 cm (1.8cm - 2cm) NANNETTE D (qi nuity eq. 2.3 cm sq LVOT VTI 27.38 cm (18cm - 22cm) Vmax) LVOT PGmax 7 mmHg AV Vmax, Calipe r 1.77 m/s (1m/s - 1.7m/s ) Patien t[id number] Study Date: 2020 02:31 PM Page 2 of 4 LVDd, 2D 5.8 cm (3.8cm - 5.2cm) NANNETTE Index (qi nuity 1.06 LVDs, 2D 4 cm (2.2cm - 3.5cm) eq.Vma x) cm sq/m sq LVPWd, 2D 0.9 cm (0.6cm - 0.9cm) LVOT Vmax / AV 0.73 FS, 2D 31.03 % Vmax LV Mass Index, 2D 100.5 g/m sq (43g/m sq - 95g/m sq) Tricus pid Valve ASE Label Value Normal Value LVSVI, 2D 44.7 ml/m sq RVSP 34 mmHg LVOT PGmean 3 mmHg RA Pressu re 3 mmHg LVOT CO 6.31 l/min TR Vmax 2.78 m/s LVOT CI 2.91 Aorta l/min/ m sq Label Value Normal Value LVOT SI 40.6 AoAsc 3 cm Left Ventri cular Diasto lic Functi on Ao Sinus Valsal va 3 cm (2.9cm - 4.5cm) Label Value Normal Value AoAsc Index 1.38 cm/m sq MV E Vmax 0.89 m/s AoSinV als Index 1.38 cm/m sq MV A Vmax 0.94 m/s Vena Cava MV E/A 0.95 Label Value Normal Value MV E/E' latera l 9.89 IVC, 2D 1.4 cm (1.2cm - 2.3cm) MV E/E' septal 14.32 (0.45 - 1.25) MV DT 236 ms MV E' septal 0.06 m/s MV E' latera l 0.09 m/s MV E/E' mean 11.87 MV E' mean 0.08 m/s Right Ventri anyi Label Value Normal Value TAPSE, MM 1.7 cm (1.7cm - 99.9cm ) Right Ventri cular Diasto lic Functi on Label Value Normal Value TR Pmax 31 mmHg TV S' 0.12 m/s Interv entric ular Septum Label Value Normal Value IVSd, 2D 1 cm (0.6cm - 0.9cm) Left Atrium Label Value Normal Value LADs long. 6 cm LADs, 2D 3.8 cm (2.7cm - 3.8cm) LAD Index, 2D 1.8 cm/m sq LAESV, BP 57 ml LAESV, MOD4 50 ml LAESV, MOD2 56 ml LAESV index, MOD4 23.0 ml/m sq (16ml/ m sq - 34ml/m sq) LAESV index, MOD2 25.8 ml/m sq (16ml/ m sq - 34ml/m sq) LAESV index, BP 26.3 ml/m sq (16ml/ m sq - 34ml/m sq) LAESV index, AL4 24.9 ml/m sq (16ml/ m sq - 34ml/m sq) LAESV index, AL2 27.2 ml/m sq (16ml/ m sq - 34ml/m sq) LAESV index, A-L 28.1 ml/m sq (16ml/ m sq - 34ml/m sq) Patien t: Josué Hughes Admiss ion: [id number] Study Date: 2020 02:31 PM Page 3 of 4 Electr onical ly signed by Mohan Yang DO on 2020 at 03:16 PM Tarik t: Josué Hughes Admiss ion: [id number] Study Date: 2020 02:31 PM Page 4 of 4 033 CP/CV echo transt horaci c comple te Impres sions: Left Ventri anyi: * Left ventri anyi upper limits of normal . * LVEF range is estima chris at 55 % -60 %. * No region al wall motion abnorm ality identi fied, limite d sensit ivity. * Normal diasto lic LV functi on. Mitral Valve: * No signif icant mitral regurg itatio n. Aortic Valve: * No signif icant aortic valve regurg itatio n. Tricus pid Valve: * Trivia l tricus pid regurg itatio n. Electr onical ly signed on at 1431 by DO. GERSON Lawler [facility] (Radiology) [address] [facility], [place], [address], 04/22/2021 10:53:03 Result Notes None recorded. Problems Name Problem SNOMED Code Status Onset Date Resolution Date Notes Provider Name and Address Organization Details Recorded Time Hyperten sive disorder 88308988 Active 2019 Antonietta Lambert RN [address] [place], [address], [facility] 0 09:47:25 Hyperlip idemia 83444986 Active 2019 Marquis Lamgabbie [facility], [facility] 0 08:27:49 Tobacco dependen ce syndrome 21760040 Active 2019 Marquis Lamgabbie [facility], [facility] 0 08:27:49 Pulmonar y emphysem a 29306434 Active 2019 Marquis Arenas [facility] 0 08:27:49 Irreduci ble incision al hernia 426469593 Completed 03/14/2020 LINDA VUONG NP [address] [place] [address], [address], [facility] 0 08:57:52 Erythema multifor me 05346141 Active [facility] 0 08:27:48 Low back pain 649021320 Completed 03/14/2020 LINDA VUONG NP [address] [place], [address], [facility] 0 08:57:50 Pain in female pelvis 288485165 Completed 03/14/2020 LINDA VUONG NP [address] [place] [address], [address], [facility] 0 08:52:55 Patient encounte r status 735914997 Completed 03/14/2020 LINDA VUONG NP [address] [place] [address], [address], [facility] 0 08:52:47 Postmeno pausal bleeding 72384239 Completed 03/14/2020 Removal Reason: had hysterec ramona LINDA VUONG, DANNY [address] [place] [address], [address] [place] [address], [facility] 0 08:58:04 Uterine leiomyom a 34750674 Completed 03/14/2020 Removal Reason: hysterec ramona LINDA VUONG, DANNY [address] [place] [address], [address] [place] [address], [facility] 0 08:58:18 Necrotiz ing fasciiti s 02975907 Completed 03/14/2020 LINDA VUONG, DANNY [address] [place] [address], [address], [facility] 0 08:53:27 Surgical follow-u p 369528556 Completed 03/14/2020 LINDA VUONG NP [address] [place] [address], [address] [place] [address], [facility] 0 08:53:13 Cyst 137055708 Completed 03/14/2020 LINDA VUONG NP [address] [place] [address], [address], [facility] 0 08:53:36 Shoulder pain 95675954 Completed 03/14/2020 LINDA VUONG NP [address] [place] [address], [address] [place] [address], [facility] 0 08:58:09 Increase d frequenc y of urinatio n 276441447 Completed 03/14/2020 LINDA VUONG NP [address] [place] [address], [address], [facility] 0 08:57:46 Injury of kidney 90652115 Active Marquis Arenas [facility], [facility] 0 08:27:49 Intestin al hernia 03488534 Completed 03/14/2020 LINDA VUONG NP [address] [place] [address], [address], [facility] 0 08:57:55 Vaginiti s 32779130 Completed 03/14/2020 LINDA VUONG, COIL CUTTER [address] [place] [address], [address], [facility] 0 08:53:09 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 0224750571 5277487 Active Marquis Lamgabbie [facility], [facility] 0 08:27:49 History of hysterec ramona 766177929 Active Marquis Lamteenaeamunira [facility], [facility] 0 08:27:49 Trichomo nal vaginiti s 373317132 Completed 03/14/2020 LINDA VUONG, DANNY [address] [place] [address], [address], [facility] 0 08:53:06 Atrial fibrilla tion 93065523 Active Marquis Lamteenaeamunira [facility], [facility] 0 08:27:49 Peripher al nerve disease 343108513 Active Marquis Lamgabbie [facility], [facility] 0 08:27:49 Incision al hernia 183022016 Completed 03/14/2020 Removal Reason: repaired LINDA VUONG, DANNY [address] [place] [address], [address], [facility] 0 08:57:41 Endometr ium thickene d 154583430 Completed 03/14/2020 LINDA VUONG, DANNY [address] [place] [address], [address], [facility] 0 08:57:17 Postoper ative nausea and vomiting 6690616 Completed 03/14/2020 LINDA VUONG, COIL CUTTER [address] [place] [address], [address], [facility] 0 08:58:24 History of excision of small intestin e 9646494009 90178 Completed 03/14/2020 Removal Reason: historic al LINDA VUONG, COIL CUTTER [address] [facility], [place], [address], [facility] 0 08:57:28 Dyspnea on exertion 15710294 Active 2019 LINDA VUONG, COIL CUTTER [address] [place] [address], [address], [facility] 0 08:57:04 Left side sciatica 0191680971 72958 Active 2019 LINDA VUONG, COIL CUTTER [address] [place] [address], [address], [facility] 0 08:57:07 Cervical radiculo davi 89740874 Active 2019 LINDA VUONG, COIL CUTTER [address] [place] [address], [address], [facility] 0 08:59:17 Headache 08586019 Active 2019 LINDA VUONG, DANNY [address] [place] [address], [address], [facility] 0 09:15:15 Osteopen ia 065200127 Active 2020 LINDA VUONG, DANNY [address] [place] [address], [address], [facility] [employer] 1 08:56:25 Bilatera l carpal tunnel syndrome [id number] 5009192 Active 2020 LINDA VUONG, DANNY [address] [place] [address], [phone], [facility] 1 08:56:27 Screenin g for malignan t neoplasm of colon Active 2020 LINDA VUONG, DANNY [address] [place] [address], [phone], [facility] [employer] 1 08:56:31 Screenin g mammogra phy Active 2020 LINDA VUONG, DANNY [address] [place] [address], [phone], [facility] 1 08:56:32 Irritabl e bowel syndrome 56834358 Active 2020 LINDA VUONG, DANNY [address] [place] [address], [phone], [facility] 1 08:28:55 Pain in right knee Active 2020 LINDA VUONG NP [address] [place], [address], [facility] 1 08:07:10 Hypergly cemia 02550723 Active 2020 LINDA VUONG NP [address] [place] [address], [phone], [facility] 1 08:09:23 Edema of lower extremit y 588259260 Active 2020 LINDA VUONG, DANNY [address] [place] [address], [phone], [facility] 1 08:10:58 Morbid obesity 056739336 Active 2021 LINDA VUONG NP [address] [place] [address], [phone], [facility] 2 10:24:03 Benign essentia l hyperten ayesha 6690793 Active 2021 LINDA VUONG NP [address] [place] [address], [phone], [facility] 2 10:29:20 Problem Notes None recorded. Procedures Surgical History Date Name Laterality Status Provider Name and Address Organization Details Recorded Time Hysterectomy completed Marquis Still [facility] 12/02/2020 08:15:46 Hernia Repair completed Marquis Arenas [facility] 12/02/2020 08:15:53 Unlisted px brad's dvrtclm completed Santhosh Carrizales [address] [place] [address], [phone], [facility] 01/26/2021 07:54:08 Imaging Results Imaging Date Name Status LastModified by Organiz ation Details LastModified Time 03/02/2021 XR, knee, 3 view completed [facility] (Radiology) [address] [place] [address], [phone], 03/02/2021 14:48:36 04/06/2021 US, echocardiogra m, transthoracic , complete completed lnovicki [facility] (Radiology) [address] [place] [address], [phone], 04/22/2021 10:53:03 Procedure Notes None recorded. Medical Equipment None Reported. Allergies Allergen ID Allergen Name Allergen Category Reaction Reaction Severity Criticality Documentation Date Start Date Code Code System Note Provider Name and Address Organization Details Recorded Time 252192 Product containin g penicilli n and antibioti c (product) medicatio n Not available Not available Not available 12/02/2020 85992 05 SNOMED Marquis polanco [place] - [employer] [facility] 08:13:14 Medications Name Sig Start Date Stop Date Status Note LastModified by Organization Details LastModified Time acetamino phen 325 mg tablet TAKE 3 TABLETS BY MOUTH EVERY 6 HOURS FOR 10 DAYS 03/13 completed taking as needed Not Available Not Available Not Available prednison e 10 mg tablet TAKE 4 TABLETS BY MOUTH ONCE DAILY IN THE MORNING FOR 3 DAYS THEN 3 TABLETS IN THE MORNING FOR 3 DAYS THEN 2 TABS IN THE MORNING FOR 4 DAYS 11/12 completed Not Available Not Available Not Available doxycycli ne hyclate 100 mg capsule 10/31 completed stopped Not Available Not Available Not Available clindamyc in HCl 300 mg capsule 03/14 completed Not Available Not Available Not Available Stool Softener 100 mg capsule TAKE 1 CAPSULE BY MOUTH ONCE DAILY FOR 7 DAYS 12/02 completed Not Available Not Available Not Available metoprolo l tartrate 100 mg tablet TAKE 1 TABLET BY MOUTH TWICE DAILY 03/02 completed 100mg made her nausea will go back to 50 Not Available Not Available Not Available permethri n 5 % topical cream APPLY (THOROGH LY MASSAFFE INTO SKIN FROM HEAD TO SOLES OF FEET) LEAVE ON FOR 8-14 HOURS THEN REMOVE BY THOROUGH WASHING active Not Available Not Available No t Available chlorthal idone 25 mg tablet TAKE 1 2 (ONE HALF) TABLET BY MOUTH ONCE DAILY 01/14 completed Not Available Not Available Not Available sulfameth oxazole 800 mg-trimet hoprim 160 mg tablet 03/14 completed Not Available Not Available Not Available aspirin 81 mg tablet,de layed release TAKE 1 TABLET BY MOUTH ONCE DAILY active Not Available Not Available No t Available amlodipin e 10 mg tablet TAKE 1 TABLET BY MOUTH ONCE DAILY NEEDS APPOINTM ENT active Not Available Not Available No t Available lisinopri l 10 mg tablet Take 1 tablet by mouth once daily 05/01 completed Not Available Not Available Not Available metoprolo l tartrate 50 mg tablet TAKE 1 TABLET BY MOUTH THREE TIMES DAILY WITH MEALS NEED DR APPT active Not Available Not Available No t Available oxycodone 5 mg tablet 03/14 completed Not Available Not Available Not Available metoprolo l succinate 10/31 completed Pt reports dose is 50mg TID Not Available Not Available Not Available Vitamin D3 active Not Available Not Available Not Available GaviLyte- G 236 gram-22.7 4 gram-6.74 gram-5.86 gram oral solution 03/14 completed Not Available Not Available Not Available metoprolo l tartrate 75 mg tablet 03/02 completed Not Available Not Available Not Available Vitals Date Recorded Body height Body mass index (BMI) Body weight Body temperature Respiratory rate Oxygen saturation Oxygen saturation in Arterial blood by Pulse oximetry Heart rate Systolic blood pressure Diastolic blood pressure Provider Name and Address Organization Details Last Updated DateTime 1 165.1 cm 41.9 kg/m2 821926. 28 g 98.2 [degF] 16 /min 97 % 97 % 80 /min 178 mm[Hg] 99 mm[Hg] Santhosh Carrizales [address] [place], [address] , [place] [facility] [employer] [facility] 1 07:41:55 Date Recorded Body height Body mass index (BMI) Body weight Heart rate Respiratory rate Systolic blood pressure Diastolic blood pressure Provider Name and Address Organization Details Last Updated DateTime 1 165.1 cm 41.5 kg/m2 417477. 2 g 96 /min 16 /min 160 mm[Hg] 82 mm[Hg] Antonietta Lambert RN [address] [place], [address], [facility] 1 14:02:55 Date Recorded Body height Body mass index (BMI) Body weight Respiratory rate Body temperature Oxygen saturation Oxygen saturation in Arterial blood by Pulse oximetry Heart rate Systolic blood pressure Diastolic blood pressure Provider Name and Address Organization Details Last Updated DateTime 2 165.1 cm 36.1 kg/m2 05546.5 4 g 17 /min 98.6 [degF] 98 % 98 % 78 /min 134 mm[Hg] 82 mm[Hg] Gregory Frost [facility] [employer] 2 09:57:08 Date Recorded Body height Body mass index (BMI) Body weight Respiratory rate Body temperature Oxygen saturation Oxygen saturation in Arterial blood by Pulse oximetry Heart rate Systolic blood pressure Diastolic blood pressure Provider Name and Address Organization Details Last Updated DateTime 3 165.1 cm 37.1 kg/m2 685085. 1 g 16 /min 97 [degF] 98 % 98 % 76 /min 138 mm[Hg] 76 mm[Hg] Gregory Frost [facility] [employer] [facility] 3 15:22:00 Social History Question Answer Notes LastModified by Organizat ion Details LastModified Time Tobacco Smoking Status Current Every Day Smoker 4-5 cigg daily LINDA VUONG NP [address] [place], [address], [facility] 12/02/2020 08:31:09 What Is Your Level Of Alcohol Consumption? Occasional Information not available 12/02/2020 What Is Your Level Of Caffeine Consumption? Moderate Information not available 12/02/2020 In The 14 Days Before Symptom Onset, Have You Had Close Contact With A Laboratory-confir med COVID-19 While That Case Was Ill? No Information not available 01/26/2021 In The 14 Days Before Symptom Onset, Have You Had Close Contact With A Person Who Is Under Investigation For COVID-19 While That Person Was Ill? No Information not available 01/26/2021 Have You Been To An Area Known To Be High Risk For COVID-19? No Information not available 01/26/2021 What Is Your Occupation? Retired Information not available 12/02/2020 Are There Any Guns Present In Your Home? No Information not available 12/02/2020 Hard Of Hearing Or Deaf In One Or Both Ears? No Information not available 12/02/2020 Legally Blind In One Or Both Eyes? No Information no t available 12/02/2020 Foreign Travel No Informat ion not available 12/02/2020 Dietary Regular Tries Low Sodium Information not available 12/02/2020 Marital Status Single Informat ion not available 12/02/2020 What Was The Date Of Your Most Recent Tobacco Screening? 01/14/2023 lnovicki Information not available 01/14/2023 How Many Children Do You Have? 1 Information not available 12/02/2020 Seat Belts Used Routinely Yes Information not available 12/02/2020 Smoke Alarm In Home Yes Information not available 12/02/2020 At What Age Did You Start Smoking Tobacco? 11 Information not available 12/02/2020 How Much Tobacco Do You Smoke? 0.25 PPD Information not available 12/02/2020 General Stress Level Medium Information not available 12/02/2020 Do You Use Sunscreen Routinely? Yes Information not available 12/02/2020 How Many Years Have You Smoked Tobacco? 54 Information not available 12/02/2020 Sex: Unknown Functional Status Question Answer Note LastModified by Organizat ion Details LastModified Time What is your exercise level? Occasional Information not available 12/02/2020 Mental Status None recorded. Family History Relationship Description Onset Age of this Age Resolved Age Notes LastModified by Organization Details LastModified Time Brother Diabetes mellitus Not available 2020 07:52:24 Brother Hypertensive disorder Not available 2020 07:52:39 Mother Diabetes mellitus Not available 2020 07:52:24 Mother Hypertensive disorder Not available 2020 07:52:39 Medical History Condition Response Asthma, COPD, Breathing or Lung Disorder Y Anxiety/Depression N Gout N Cardiac History, Heart Murmur, [place] N Eye or Vision Problems Y Gynecologic problems N Hernia Y Thyroid Problems N GI Problems Y Developmental or Behavioral Disorders N Blood Pressure High or Low Y Breast Problem N Skin Problems N Food or Environmental Allergies N Diabetes N Bladder,Kidney Problems or Recurrent UTI 's N Muscle, Joint, or Bone Problems N Bleeding Disorder N Arthritis Y Cancer (of any kind) N Defects or Inherited Diseases N Prostate issues, ED or Sexual Problem N Insomnia N Cholesterol High or Low N Chronic Pain N Stroke N Headache N Dizziness or Fainting N Anemia, Blood Clot, or Bleeding Disorder N Seizures or Convulsions N Ear Nose & Throat (ENT) Problems N Neuropathy N Osteoporosis N Liver Disease or Hepatitis N Gynecological HistoryNo gynecological history recorded. Obstetrics History GPAL:G 0 P 0 0 0 0 Immunizations Vaccine Type Date Status Note Provider Nam e and Address Organization Details Recorded Time COVID-19, mRNA, LNP-S, PF, 100 mcg/0.5mL dose or 50 mcg/0.25mL dose 11/14/2020 completed Marquis polanco [place] - [employer] [facility] 12/02/2020 08:14:02 Past Encounters Encounter ID Performer Location Encounter Start Date Encounter Closed Date Diagnosis/Indication Diagnosis SNOMED-CT Code Diagnosis ICD10 Code Diagnosis Note [id number] Wolf Carrizales MD [address] [place] [address] 10/09/2019 09:18:12 10/09/2019 09:53:32 Hypertensive disorder 92581719 I10 [id number] LINDA VUONG NP [address] [place] [address] 11/01/2019 07:52:15 11/01/2019 13:09:24 Hypertensive disorder 13726955 I10 Unable to check at home. Is still taking amlodipine 10mg QD and metoprolol 50mg TID.Report s asymptomat ic.Reviewe d concerning signs of uncontroll ed HTN. Hyperlipidemia 75425167 E78.5 Reviewed labs borderline high. Diet and exercise for control. Recheck at 6 month interval. Tobacco de pendence syndrome 63141892 F17.200 Encouraged quitting smoking efforts. Reviewed health benefits. Pulmonary emphysema [address] reviewed with patient and due 09/2020 [id number] LINDA VUONG NP [address] [place] [address] 03/14/2020 08:19:44 03/14/2020 09:34:57 Hyperlipidemia 06908940 E78.5 Reviewed labs borderline high. Diet and exercise for control. Recheck at 6 month interval. Hypertensive disorder 38 672761 I10 Unable to check at home. Is still taking amlodipine 10mg QD and metoprolol 50mg TID.Report s asymptomat ic.Reviewe d concerning signs of uncontroll ed HTN. Pulmonary emphysema [address] reviewed with patient and due 09/2020. Dyspnea on exertion 6084 5006 R06.09 ARTEAGA to extent she needs to stop and rest frequently throughout the day. She does have a smoking hx. Left side sciatica 70956 14047 93933 M54.32 PT order placed. Cervical radiculopathy 69216010 M54.12 EMG ordered and can address with PT. Strength intact and ROM intact. Obesity 986594382 E66.9 diet, exercise and weight loss reviewed. labs ordered. Vitamin D deficiency 347 27894 E55.9 is taking 1000iu QD. Headache 06603148 R51 Atypical headache like sxs. Seems to be more superficia l scalp pain. Alleviated with pressure applied to region.adv ised updating eye exam has been 7+ years.If worsening or changing sxs call office or ER. [id number] LINDA VUONG NP [address] [place] [address] 08/14/2020 09:15:05 08/14/2020 10:12:50 Patellar tendonitis 62984239 M76.50 begin prednisone , ice and can use topical icy hot at night. IF not improving follow up for XR and ortho referral. [id number] LINDA VUONG NP [address] [place] [address] 12/02/2020 08:06:57 12/02/2020 08:46:38 Adult health examination 327703942 Z00.00 Update all fasting labs, mammo and colonoscop y and bone density due. Hyperlipidemia 91782903 E78.5 Reviewed labs borderline high. Diet and exercise for control. Lipids elevated in past did not recheck at 6 mos due to COVID. Hypertensive disorder 38 391563 I10 BP borderline . Encouraged to Cont amlodipine 10mg and metoprolol 50mg TID as directed. Tobacco de pendence syndrome 23820380 F17.200 Encouraged quitting smoking efforts. Reviewed health benefits. LDCT overdue Screening mammography 24 330626 Z12.31 Mammo overdue. Screening for malignant neoplasm of colon 976648847 Z12.11 colonoscop y never done. Bilateral carpal tunnel syndrome 3454903807 5697633 G56.03 follow up with Ortho again Osteopenia 784450430 M85 .80 Bone density ordered. She has never had done. Obesity 743866055 E66.9 diet, exercise and weight loss reviewed. labs ordered. [id number] LINDA VUONG NP [facility] [address] [place] [address] 01/26/2021 07:43:23 01/26/2021 08:14:40 Hypertensive disorder 74521888 I10 BP high. begin checking BP daily Cont amlodipine 10mg and increase metoprolol 75mg TID as directed. Irritable bowel syndrome 87146991 K58.9 f/u with GI. has colonoscop y sched 02/13. [id number] LINDA VUONG NP [address] [place], [place] [address] 03/02/2021 07:36:43 03/02/2021 08:14:32 Hypertensive disorder 40558734 I10 uncontroll ed on-amlodip ine 10mg.metop rolol 100mg BID she stopped because made her nausea and did not resume 50mg TID. Resume metoprolol 50mg 1 AM and noon then 100mg QHS.f/u 1 week.Pendi ng BNP and CMP may add on diretic as well Tobacco de pendence syndrome 18668725 F17.200 Encouraged quitting smoking efforts. Reviewed health benefits. LDCT due 12/2021 Emphysema noted Atrial fibrillation 4943 6004 I48.91 Has not followed up with cardiology . reports dyspnea increased. Dyspnea on exertion 6084 5006 R06.09 Echo 04/2020 normal.ARTEAGA to extent she needs to stop and rest frequently throughout the day. She does have a smoking hx. Hyperglycemia 63553331 R 73.9 Glucose was 110 in november on CMP. Will update and A1c Pulmonary emphysema [address] due 12/2021. Smoking cessation stressed. Pain in right knee 15020 14368 14636 M25.561 Complete today for eval If arthritis will refer to orthopedic vs PT Edema of l ower extremity 977459546 R60.0 BNP ordered. Coarse crackle and rhonchi noted. 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 [id number] LINDA VUONG NP [address] [address] 03/12/2021 13:42:29 03/12/2021 14:10:33 Hypertensive disorder 32655377 I10 [id number] LINDA VUONG NP [address] [address] 09/10/2021 15:08:46 09/10/2021 15:49:22 Injury of left shoulder 1864734578 6525218 S49.92XA Fell last year. Worsening LUE numbness and tingling from shoulder area. Ortho ref and XR ordered. Irritable bowel syndrome 25785416 K58.9 f/u with GI for increase in loose stool. Fiber intake and diet reviewed. if not improving or long wait to be seen can order CT as well. Bilateral carpal tunnel syndrome 9449666935 7107042 G56.03 follow up with Ortho again New referral in place Dyspnea on exertion 6084 5006 R06.09 Echo 04/2020 and 03/2021 both normal.ARTEAGA to extent she needs to stop and rest frequently throughout the day. She does have a smoking hx.Possibl e r/t COPDShe would likely benefit from cardiopulm rehab [id number] LINDA VUONG NP [address] [address] 03/01/2022 09:26:13 03/01/2022 10:24:40 Atrial fibrillation 44359728 I48.91 no cardiology notes in [facility]. Echo report was found and will scan in for review. Benign ess ential hypertension 2830875 I10 BP stable. Cont metoprolol 50mg TID, amlodipine 10mg QD and chlorthali done. 12.5mg QD. Bilateral carpal tunnel syndrome 1534897849 8267485 G56.03 follow up with Ortho again New referral in place Hyperlipidemia 64414359 E78.5 2020 borderline high. She has been working on diet and has lost approx 30lbs. encouraged to continu efforts. Labs ordered. Morbid obesity 735879020 E66.01 BMI today: {{ 36.1#}} Cont with healthy diet and incorporat e exercise. Fasting labs due. Vitamin D deficiency 347 33581 E55.9 is taking 1000iu QD. Screening mammography 24 063039 Z12.31 Mammo overdue. [id number] LINDA VUONG [employer] [address] [place] [address] 01/14/2023 14:38:29 01/14/2023 15:57:21 Benign essential hypertension 8703955 I10 BP stable. Cont metoprolol 50mg TID, amlodipine 10mg QD.UPdate labs Hyperlipidemia 59068506 E78.5 2020 borderline high. She has been working on diet and has lost approx 25lbs. encouraged to continue efforts. Labs ordered.Up date labs. Morbid obesity 843545778 E66.01 BMI today: {{ 37.1#}} Cont whole foods diet and exercise/a ctivity as tolerated. Vitamin D deficiency 347 54276 E55.9 is taking 1000iu QD. Tobacco de pendence syndrome 07458414 F17.200 Encouraged quitting smoking efforts. Reviewed health benefits. LDCT due 12/2021 Emphysema noted Health Concerns Section Related Observation LastModified by Organization [employer] LastModified Time None Recorded Concern Status LastModified by Organization Details LastModified Time None Recorded Advance Directives Directive None Recorded Payers Encounter Date Sequence Insurance Name Policy Number Policy Brooks Covered Member ID Brooks Member ID Guarantor Name 03/02/2021 1 [facility] (MEDICARE REPLACEMENT/A DVANTAGE - PPO) [id number] Janeth Hughes [id number] Janeth Hughes 03/12/2021 1 [facility] (MEDICARE REPLACEMENT/A DVANTAGE - PPO) [id number] Quinshelly Hughes [id number] Janeth Hughes 09/10/2021 1 [facility] (MEDICARE REPLACEMENT/A DVANTAGE - PPO) [id number] Quinshelly Hughes [id number] Janeth Hughes 03/01/2022 1 [facility] (MEDICARE REPLACEMENT/A DVANTAGE - PPO) [id number] Janeth Hughes [id number] Janeth Hughes 01/14/2023 1 [facility] (MEDICARE REPLACEMENT/A DVANTAGE - PPO) [id number] Janeth Hughes [id number] Janeth Hughes Notes Date Note Type Note Provider Name and Address Organization Details Recorded Time 03/02/2021 text/html IN office follow up for BP check today which remains high and higher than last OV BP. HTN-Currently on amlodipine 10mg metoprolol 100mg BID.She continues to c/o dyspnea but also continues to actively smoke 1/2 ppd.Headaches in left head have returned. Dyspnea-She feels alot of this comes from pressure in her abdomen and abdominal pain vs chest and lungs. No cough but has noted increased edema.Continues to smoke about 1/2 ppd. Neg echo 04/2020. GI-Was seen needs cardiac work up. had labs and stool testing done she reports no results yet as she has not been contacted by office. She has been working on changing diet for mostly veggies and baked grilled meats. Has eliminated alot of carbs. All other ROS neg. LINDA VUONG NP [address] [place], [address], [facility] 03/02/2021 08:18:34 03/12/2021 text/html [id number] - Pt presented for BP check LINDA VUONG NP [address] [place], [address], [facility] 03/12/2021 14:58:23 09/10/2021 text/html Telephone call placed to patient today for follow up on loose stools and rectal burning with BMS. No bloody stools. She has been having this ongoing now since her small bowel resection in 12/2019. SHe reports she back on track with metoprolol did go without her medication for a little while when she moved she lost the bottle. SHe was having sharp shooting headaches which have resolved since restarting medication. L shoulder pain-She has numbness and tingling from her shoulder into her arm/hand. SHe reports a fall last year and since then the pain has steadily been increasing and numb/tingling feeling in her hand and arm.She does also have Bilat CTS she would like to follow up with Dr Morris again for to discuss fixing it. BOwels-SInce having her SBO and resection she has been having loose stool and constipation alternating but recently it has been more loose stool and rectal burning. She reports she has not seen GI since 02/2021 for colonoscopy work up but was told needed cardiac clearance. NO further documentation available in her chart [facility]. All other ROS neg. LINDA VUONG NP [address] [place] [address], [phone], [employer] [facility] 09/10/2021 15:57:12 03/01/2022 text/html In office f/u to day She has been having this ongoing now since her small bowel resection in 12/2019. She has been working on weight loss changed her diet and has been avoiding starchy carbs. She has moved to the [facility] and would like to cont care in our office but to do all labs and testing at [facility] facilities as this is easier for her. Chart review-Fasting labs-DueCOlonoscopy -ordered 2020 no record or report in [facility] per patient she did it and it was good.mammo-DueBone density-2020 5-10 yrs Cardiac-Stable. Update fasting labs.no cardiology notes in chart will look in [facility] was noted she needed cardiac clearance for colonoscopy last year. Bowels-She had normal colonoscopy per patient. No reports or notes available. SHe reports bowels improved. All other ROS neg. 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 She has moved to the [facility] and would like to cont care in our office but to do all labs and testing at [facility] as this is easier for her. Chart review-Fasting labs-DueColonoscopy -ordered 2020 no record or report in [facility] per patient she did it and it was good.mammo-Sched for JulyBone density-2020 5-10 yrsLDCT- overdue done 12/2020 Cardiac-Stable. Update fasting labs.no cardiology notes in chart will look in [facility] was noted she needed cardiac clearance for colonoscopy last year.NEG ECHO 04/06/21 Bowels-She had normal colonoscopy per patient. No reports or notes available. SHe reports bowels improved. All other ROS neg. LINDA VUONG, DANNY [address] [place], [address], [place] - [employer] 01/14/2023 15:44:55 OBGyn Episode No OBEpisode recorded.
== END 2024-09-05 11:35 | disposition home or self-care (01) ==
PROVIDERS: PCP Nurse Practitioner Family; Visit Provider Nurse Practitioner Family
DX: I50.22 Chronic systolic (congestive) heart failure (principal); I73.9 Peripheral vascular disease, unspecified; E66.01 Morbid (severe) obesity due to excess calories; Z68.39 Body mass index [BMI] 39.0-39.9, adult; F33.0 Major depressive disorder, recurrent, mild; I10 Essential (primary) hypertension; E78.2 Mixed hyperlipidemia; R20.2 Paresthesia of skin; R29.898 Other symptoms and signs involving the musculoskeletal system; N39.45 Continuous leakage; F17.200 Nicotine dependence, unspecified, uncomplicated; E53.8 Deficiency of other specified B group vitamins

== ENCOUNTER 2024-09-05 11:33 | Outpatient (REF) | payer MEDICARE, SELFPAY ==
[2024-09-05 14:50] LABS: Estimated Average Glucose 114 mg/dL; Hemoglobin A1C 136.7997 umol/L; Hemoglobin A1c % 5.6 % (<6.0)
[2024-09-05 15:22] LABS: Cholesterol 176 mg/dL (<200); HDL Cholesterol 49 mg/dL (>40); LDL Cholesterol Calculated 99 mg/dL (<100); Triglycerides 142 mg/dL (<150)
[2024-09-05 15:57] LABS: Folate 7.6 ng/mL (> or = 4.0); Vitamin B12 692 pg/mL (200-900)
== END 2024-09-05 11:34 | disposition home or self-care (01) ==
LOC: HO.WFDLDS 11:33
PROVIDERS: Visit Provider Nurse Practitioner Family
DX: I10 Essential (primary) hypertension (principal); E78.2 Mixed hyperlipidemia; E53.8 Deficiency of other specified B group vitamins; Z13.1 Encounter for screening for diabetes mellitus
CPT/HCPCS: 36415; 80061; 82607; 82746; 83036; 96127; 99212

== ENCOUNTER 2024-10-26 15:04 | Outpatient (AMB) | payer MEDICARE, SELFPAY ==
--- NOTE | 2024-10-26 15:00 | MHC.PC.OV ---
Intake Visit Reasons: telehealth for housing letter. Intake Note: telehealth for updated housing letter Dispute Resolution Specialist Required: No Allergies Penicillins Allergy (Severe, Verified 10/26/24 15:01) Eye Swelling Tobacco use date assessed: 10/26/24 Fall risk assessment: No Falls in past year Last assessed Fall Risk: 10/26/24 Dental Screening Dental Screen Date: 10/26/24 Did you have a dental visit in the last 12 months?: Yes Did you have a dental problem in the last 6 months where you did not have access to dental care?: No Was dental information given to patient?: Patient has dentist HPI HPI Comments History of Present Illness Details Kindra 69 y/o F with HTN, current smoker, menopause, obesity, Vit d def , right knee osteoarthritis, PVD, CHF, b12 def without anemia, frequent falls History of Present Illness Telehealth visit today to discuss housing. At the last office visit she requested a letter for first floor housing due to chronic medical conditions. While this form was sufficient it needs to have a new date on it. She requested this form be printed and faxed to the [facility] attention Colette Messer. Of other notes she reports that she had right carpal tunnel surgery done this month and this went well. She will need a surgery on the left hand but is putting off at this time due to cost. Telehealth Attestation The patient has been explained that this is an interactive (audio/video) telehealth encounter and what that consists of. The patient understands and wishes to proceed. Rhomania platform was used. Total time spent caring for the patient today was 15 minutes. This includes time spent before the visit reviewing the chart, time spent during the visit, and time spent after the visit on documentation, reviewing laboratory results, diagnostic imaging, medications, performing a medically necessary evaluation, counseling on diagnoses, care coordination, ordering appropriate tests, ordering appropriate medications, review of tests performed by other providers, reporting test results with the patient, communication with other healthcare providers. Address:?[address] [facility], [place] [address] Phone:? Fax:? [facility] Surgical History (Updated 10/26/24 @ 15:38 by Marilou Navarrete, QUILL LAYER-) History of carpal tunnel surgery of right wrist (~10/2024) Social History (System 05/22/24 @ 07:46 by Maira Alexander) Household Members: None Housing: Apartment Are you a primary medicare specialist to a significant other at home: No Do you presently have visiting nurse or other home services: Yes ([facility]) 75 years or older and lives alone: No Alcohol intake: current Alcohol intake frequency: a few times a week Patient Tobacco Use Status: Current everyday Tobacco user Tobacco use type: Cigarette Cigarettes Per Day: 3 Years Smoked: 50 Packs per year/per ci.50 e-Cigarette/Vaping Use: Never Used service: No Current occupational status: employed and retired 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 Cognitive needs: Yes Hearing needs: No Vision needs: Yes (wear glasses) Questionnaire Thrive Questionnaire Date Thrive assessed: 09/05/24 I am a: Patient What is your living situation today?: I have a steady place to live Within the past 12 months, did the food you bought not last and you didn't have the money to get more?: Sometimes True Within the past 12 months, did you worry whether your food would run out before you got money to buy more?: Sometimes True Do you have trouble paying for medicines?: No Do you have trouble getting transportation to medical appointments?: No Do you have trouble paying your heating and electricity bill?: No Do you have trouble taking care of your child, family member or friend?: No Do you have trouble with day-to-day activities such as bathing, preparing meals, shopping, managing finances, etc.?: Yes Are you currently unemployed and looking for a job?: No Are you interested in more education?: No Currently or been in a relationship where the following occur: No concerns reported THRIVE Score: 2 OMA-7 AMB Questionnaire OMA-7 Date OMA - 7 assessed: 09/05/24 Source: Developed by Drs. Raymundo Higgins, Claudia Angulo, Mac Foote and colleagues, with an educational mireya from [employer]. Physical exam (Primary Care) Tobacco/Smoking Status: Tobacco use Status Tobacco use date assessed 10/26/24 10/26/24 15:01 Patient Tobacco Use Status Current everyday Tobacco 10/26/24 15:01 Tobacco use type Cigarette 10/26/24 15:01 e-Cigarette/Vaping Use Never Used 10/26/24 15:01 Thrive Assessment: Date of Thrive Assessment Date Thrive assessed 09/05/24 10/26/24 15:01 Currently or been in a relationship where the following occur: No concerns reported Telehealth Telehealth Telehealth Platform: Telephone Location of provider rendering services: practice address Location of patient: address on file Patient Identification confirmed using: Name, : Yes Telehealth method: voice only Patient verbally consented to treatment: Yes Patient verbally consented to billing insurance company: Yes Patient informed of any privacy concerns related to visit: Yes Coding Level of Care Code Tele Est Pt Level 2 (77188) Complex EM visit Add On G2211 Diagnoses Chronic systolic congestive heart failure I50.22 Heart failure type: systolic Heart failure chronicity: chronic Falls R29.6 Assessment & Plan Assessment & Plan (1) CHF (congestive heart failure): Code(s): I50.9 - Heart failure, unspecified Category: Medical Qualifiers: Heart failure type: systolic Heart failure chronicity: chronic Qualified Code(s): I50.22 - Chronic systolic (congestive) heart failure (2) Falls: Code(s): R29.6 - Repeated falls Category: Medical Plan .
== END 2024-10-26 17:05 | disposition home or self-care (01) ==
LOC: HO.HMCFM 15:04
PROVIDERS: PCP Nurse Practitioner Family; Visit Provider Nurse Practitioner Family
DX: I50.22 Chronic systolic (congestive) heart failure (principal); R29.6 Repeated falls

== ENCOUNTER → 2024-10-26 15:04 | Outpatient (BNVA) | payer MEDICARE, SELFPAY | PROVIDERS: PCP Nurse Practitioner Family; Visit Provider Nurse Practitioner Family ==

== ENCOUNTER 2025-01-10 09:55 | Outpatient (AMB) | payer MEDICARE, SELFPAY ==
--- NOTE | 2025-01-10 10:39 | A.OFFPC_ITS ---
Vital Signs 01/10/25 10:51 01/10/25 11:39 Height 5 ft 5 in Weight 229 lb BMI 38.1 BP 152/78 H 138/70 Blood Pressure Location Rt brachial Position Sitting Respiration 13 Pulse 78 Pulse Source Pulse Oximeter Temp 97.6 F Temp Source Oral Pulse Oximetry (%) 99 Oxygen Delivery Method Room Air Intake Visit Reasons: 3 months 30 min routine Intake Note: 3 Months routine follow up. Pilot Captain Required: No Allergies Penicillins Allergy (Severe, Verified 01/10/25 11:10) Eye Swelling Medication List - Last Reconciled 01/10/25 by Marilou Navarrete, ELECTRICIAN AIRCRAFT- amlodipine 10 mg PO DAILY aspirin 81 mg PO DAILY atorvastatin 20 mg PO BEDTIME cholecalciferol (vitamin D3) 50 mcg PO DAILY hydrochlorothiazide 25 mg PO DAILY mecobalamin (vitamin B12) (B12 Active) 2,000 mcg (2 x 1,000 mcg) PO DAILY metoprolol tartrate 50 mg PO DAILY Tobacco use date assessed: 01/10/25 Fall risk assessment: No Falls in past year Last assessed Fall Risk: 01/10/25 Dental Screening Dental Screen Date: 01/10/25 Did you have a dental visit in the last 12 months?: Yes Did you have a dental problem in the last 6 months where you did not have access to dental care?: No Was dental information given to patient?: Patient has dentist HPI HPI Comments History of Present Illness Details Kindra 69 y/o F with HTN, current smoker, menop ause, obesity, Vit d def , right knee osteoarthritis, PVD, CHF, b12 def without anemia, frequent falls, s/p R CTS repair Health Maintenance Lung ca screening: referred 05/21/24, will be getting this done February 04, 2025 Dexa Pap Colon referred 05/21/24 Mammo Tdap/flu 05/21/24 Specialists GI waiting on appt thinks she had an appt but i do not have records ortho 06/18/24, will make another appt Derm 06/2024 [facility] initial derm Cards canceled initial appt with Dr Dale d/t insurance - new referral to [facility] placed. Pulm had appt w/ [facility] had appt x 1 History of Present Illness - The patient is a 69-year-old female pr esenting with a chronic disease management follow-up. - Hypertension/CHF on Amlodipine, Hydroc hlorothiazide, Metoprolol. - Hyperlipidemia/CAD managed with Atorva statin; Aspirin for peripheral vascular disease. - Vitamin D and B12 deficiencies managed with supplements. - Reports new eye irritation, watery eye s. Will schedule eye exam - Stress related to smoke exposure in [facility]; referral/insurance issues hinder access to care. - Notable medication dosage adjustment; stabilized heart rate post adjustment. Review of Systems - Cardiovascular: Denies chest pain, rep orts occasional abnormal sensations on the left side. - Respiratory: Denies coughing, reports prior exposure-related symptoms in the housing environment. - Eyes: Reports watery eyes, awaits opht halmology consultation. - Endocrine: Denies new symptoms indicat jailyn of endocrine dysfunction besides current deficiencies. - Musculoskeletal: Reports swelling in f eet associated with shoe wear. - Neurological: Denies dizziness but ack nowledges a sensation of imbalance. - General: Reports stress due to housing and insurance issues. Exam: Awake alert NAD RRR, 2/6 systolic murmur Clear and dim throughout Nonpitting edema BLE L>R, decreased PP, + varicose veins, skin intact BUE neurovasc intact, decreased manager corporate strategy strength R hand, no obvious deformity, erythema edema or warmth. Results - Labs: Mention of prior labs done in [facility]. - Imaging: No echocardiogram done yet - [facility] does not take insurance - Diagnostics: Ultrasound conducted for gastrointestinal complaints, results pending. Discussion Notes I discussed with the patient her chronic disease management, emphasizing the importance of adherence to her antihypertensive and hyperlipidemia medications. We also reviewed her vitamin supplementation for deficiencies. I noted her stress related to housing and referral issues and recommended coordinating with a nurse navigator for assistance. We addressed her eye irritation symptoms and facilitated the follow-up with an plodding operator. In relation to the specialist appointments, I explained the insurance challenges and re-arranged referrals accordingly. We discussed her reduced smoking and its impact on her health positively. I encouraged continuation of smoke cessation efforts with support in respiratory care. Start albuterol, cont care w/ Pulm, I recommended she return for a follow-up in May for an annual check-up with lab work a week prior. Assessment and Plan 1. Essential Hypertension - Continue Amlodipine, Hydrochlorothiazi de, Metoprolol. 2. Hyperlipidemia - Continue Atorvastatin. 3. Peripheral Vascular Disease - Continue Aspirin. 4. Vitamin D Deficiency - Continue supplementation. 5. Vitamin B12 Deficiency - Continue supplementation. 6. Eye Irritation - Ophthalmology consult pending. 7. Stress and Housing - Nurse navigator coordination. 8. Insurance and Referrals - Adjust referrals to compatible locatio ns. 9. Smoking Cessation - Support ongoing reduction. Patient Instructions - Continue taking all prescribed medicat ions daily as discussed. - Monitor your blood pressure regularly and report any concerning changes. - Attend all scheduled follow-up appoint ments, including specialist consultations. - Follow up with the plodding operator as scheduled for the eye symptoms. - Speak with a nurse navigator to help m anage your healthcare appointments. - Maintain low smoking, preferably qi nuing towards cessation. - Rest and avoid stressful situations wh en possible; relax during your trip to [place]. - RTO OCt sAWV labs prior, sooner PRN Consent Patient was informed and verbally consented to the use of an ambient scribe for clinic note documentation during this visit. Total time spent caring for the patient today was 45 minutes. This includes time spent before the visit reviewing the chart, time spent during the visit, and time spent after the visit on documentation, reviewing laboratory results, diagnostic imaging, medications, performing a medically necessary evaluation, counseling on diagnoses, care coordination, ordering appropriate tests, ordering appropriate medications, review of tests performed by other providers, reporting test results with the patient, communication with other healthcare providers. [facility] Surgical History (Updated 10/26/24 @ 15:38 by Marilou Navarrete, [facility]) History of carpal tunnel surgery of right wrist (~10/2024) Social History (System 05/22/24 @ 07:46 by Maira Alexander) Household Members: None Housing: Apartment Are you a primary acute care nursing assistant to a significant other at home: No Do you presently have visiting nurse or other home services: Yes ([facility]) 75 years or older and lives alone: No Alcohol intake: current Alcohol intake frequency: a few times a week Patient Tobacco Use Status: Current everyday Tobacco user Tobacco use type: Cigarette Cigarettes Per Day: 3 Years Smoked: 50 e-Cigarette/Vaping Use: Never Used service: No Current occupational status: employed and retired 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 Cognitive needs: Yes Hearing needs: No Vision needs: Yes (wear glasses) Questionnaire Thrive Questionnaire Date Thrive assessed: 09/05/24 I am a: Patient What is your living situation today?: I have a steady place to live Within the past 12 months, did the food you bought not last and you didn't have the money to get more?: Sometimes True Within the past 12 months, did you worry whether your food would run out before you got money to buy more?: Sometimes True Do you have trouble paying for medicines?: No Do you have trouble getting transportation to medical appointments?: No Do you have trouble paying your heating and electricity bill?: No Do you have trouble taking care of your child, family member or friend?: No Do you have trouble with day-to-day activities such as bathing, preparing meals, shopping, managing finances, etc.?: Yes Are you currently unemployed and looking for a job?: No Are you interested in more education?: No Currently or been in a relationship where the following occur: No concerns reported THRIVE Score: 2 OMA-7 AMB Questionnaire OMA-7 Date OMA - 7 assessed: 09/05/24 Source: Developed by Drs. Raymundo Higgins, Claudia Angulo, Mac Foote and colleagues, with an educational mireya from [employer]. Physical exam (Primary Care) Vital Signs: Last Vital Signs Temp 97.6 F 01/10/25 10:51 Pulse 78 01/10/25 10:51 Resp 13 01/10/25 10:51 BP 152/78 H 01/10/25 10:51 Pulse Ox 99 01/10/25 10:51 Oxygen Delivery Method Room Air 01/10/25 10:51 BMI result Body Mass Index 38.1 Tobacco/Smoking Status: Tobacco use Status Tobacco use date assessed 01/10/25 01/10/25 10:43 Patient Tobacco Use Status Current everyday Tobacco 01/10/25 10:43 Tobacco use type Cigarette 01/10/25 10:43 e-Cigarette/Vaping Use Never Used 01/10/25 10:43 Are you ready to quit: No Tobacco cessation counseling provided: Yes Items discussed: Nicotine replacement, QuitWorks and Other Relapse Prevention: discussed the importance of a supportive environment, discussed extending NRT, discussed negative mood or depression after quitting, weight gain after smoking is common and discussed dietary, exercise and/or lifestyle changes Number of minutes spent counselin CPT code: 58429 - 4-10 Minutes Thrive Assessment: Date of Thrive Assessment Date Thrive assessed 09/05/24 01/10/25 10:43 Currently or been in a relationship where the following occur: No concerns reported Coding Level of Care Code Est Pt Level 5 (36844) Complex EM visit Add On G2211 Diagnoses Chronic systolic congestive heart failure I50.22 Heart failure type: systolic Heart failure chronicity: chronic OMA (generalized anxiety disorder) F41.1 Primary hypertension I10 Hypertension type: primary hypertension Mixed hyperlipidemia E78.2 Hyperlipidemia type: mixed hyperlipidemia Mild episode of recurrent major depressive disorder F33.0 Major depression episode severity: mild PVD (peripheral vascular disease) I73.9 Tobacco dependence F17.200 Encounter for screening involving social determinants of health (SDoH) Z13.9 Additional Codes Vital Signs *Quality* - CPT code: 52982 - 4-10 Minutes ([id number]) Assessment & Plan Assessment & Plan (1) CHF (congestive heart failure): Code(s): I50.9 - Heart failure, unspecified Category: Medical Qualifiers: Heart failure type: systolic Heart failure chronicity: chronic Qualified Code(s): I50.22 - Chronic systolic (congestive) heart failure (2) OMA (generalized anxiety disorder): Code(s): F41.1 - Generalized anxiety disorder Category: Medical (3) HTN (hypertension): Code(s): I10 - Essential (primary) hypertension Category: Medical Qualifiers: Hypertension type: primary hypertension Qualified Code(s): I10 - Essential (primary) hypertension (4) Hyperlipidemia: Comment: LDL goal <70 Code(s): E78.5 - Hyperlipidemia, unspecified Category: Medical Qualifiers: Hyperlipidemia type: mixed hyperlipidemia Qualified Code(s): E78.2 - Mixed hyperlipidemia (5) MDD (major depressive disorder), recurrent episode: Code(s): F33.9 - Major depressive disorder, recurrent, unspecified Category: Medical Qualifiers: Major depression episode severity: mild Qualified Code(s): F33.0 - Major depressive disorder, recurrent, mild (6) PVD (peripheral vascular disease): Comment: 05/2024 ([employer] 06/04/24 Right leg 1.02 WNL, Left leg 0.59 Mild/moderate) based on clinical exam, decreased PP, hairless, monitor skin integrity encourage exercise and smoking cessation Code(s): I73.9 - Peripheral vascular disease, unspecified Category: Medical (7) Tobacco dependence: Comment: referred for lung ca screening Smoking Cessation How to Quit There are a lot of ways to quit smoking and many resources to help you. Family members, friends, and co-workers may be supportive or encouraging, but to be successful the desire and commitment to quit must be your own. Most people who have been able to successfully quit smoking made at least one unsuccessful attempt in the past. Try not to view past attempts to quit as failures, but rather as learning experiences. Stopping smoking or using smokeless tobacco is difficult, but anyone can do it. Know the symptoms to expect when you stop. Common symptoms include: ? An intense craving for nicotine ? Anxiety, tension, restlessness, frustration, or impatience ? Difficulty concentrating ? Drowsiness or trouble sleeping, as well as bad dreams and nightmares ? Drowsiness and trouble sleeping ? Headaches ? Increased appetite and weight gain ? Irritability or depression How severe your symptoms are depends on how long you smoked and how many cigarettes you smoked each day. Feel ready to quit? ? First and foremost, set a quit date and quit completely on that day. Before your quit date, you may begin reducing your cigarette use. But remember, there is no safe level of cigarette smoking. ? List the reasons why you want to quit. Include both short- and long-term benefits. ? Identify the times you are most likely to smoke. For example, do you tend to smoke when feeling stressed or down? When out at night with friends? While drinking coffee or alcohol? When bored? While driving? Right after a meal or sex? During a work break? While watching TV or playing cards? When you are with other smokers? ? Let all of your friends, family, and co-workers know of your plan to stop smoking and your quit date. Just being aware that they know what you're going through can be helpful, especially when you are grumpy. ? Get rid of all your cigarettes just before the quit date, and clean out anything that smells like smoke, such as clothes and furniture. Make a plan about what you will do instead of smoking at those times when you are most likely to smoke. ? Be as specific as possible. For example, drink tea instead of coffee -- tea may not trigger the desire for a cigarette. Or, take a walk when you feel stressed. ? Remove ashtrays and cigarettes from the car. Place pretzels or hard candies there instead. Pretend-smoke with a straw. ? Find activities that focus your hands and mind but are not taxing or fattening. Computer games, solitaire, knitting, sewing, and crossword puzzles may help. ? If you normally smoke after eating, find other ways to end a meal. Play a tape or CD, eat a piece of fruit, get up and make a phone call, or take a walk (a good distraction that also wong calories). Make other changes in your lifestyle. ? Change your daily schedule and habits. Eat at different times or eat several small meals instead of three large ones. Sit in a different chair or even a different room. ? Satisfy your oral habits by eating celery or other low-calorie snack, chewing sugarless gum, or sucking on a cinnamon stick. ? Go to public places and restaurants where smoking is prohibited or restricted. ? Eat regular meals and don't eat too much candy or sweet things. ? Get more exercise. Take walks or ride a bike. Exercise helps relieve the urge to smoke. Set short-term quitting goals and reward yourself when you meet them. ? Every day, put the money you normally spend on cigarettes in a jar. Then buy something pleasurable after a period of time. ? Try not to think about all the days ahead you will need to avoid smoking. Take it one day at a time. ? Even one puff or one cigarette will make your desire for more cigarettes even stronger. However, it is normal to make mistakes. So even if you have one cigarette, you don't need to take the next one. Other tips to help you quit smoking and stick to it: ? Enroll in a smoking cessation program (hospitals, health departments, community centers, and work sites often offer programs). Learn about self-hypnosis or other techniques. ? Ask your health care provider about prescription medications that are safe and appropriate for you. ? Find out about nicotine patches, gum, and sprays. The [place] [employer]'s web site -- www.cancer.org -- is an excellent resource for smokers who are trying to quit, and the [employer] [place] [employer] can help some smokers kick the habit. Above all, don't get discouraged if you aren't able to quit smoking the first time. Nicotine addiction is a hard habit to break. Try something different next time. Develop new strategies, and try again. Many people take several attempts to finally kick the habit. Code(s): F17.200 - Nicotine dependence, unspecified, uncomplicated Category: Medical (8) Encounter for screening involving social determinants of health (SDoH): Code(s): Z13.9 - Encounter for screening, unspecified Category: Medical Plan . Orders: Orders TSH reflex Free T4 04/08/25 E78.2 - Mixed hyperlipidemia, F41.1 - Generalized anxiety disorder, I10 - Essential (primary) hypertension, I50.22 - Chronic systolic (congestive) heart failure Vitamin B12 and Folate 04/08/25 E78.2 - Mixed hyperlipidemia, F41.1 - Generalized anxiety disorder, I10 - Essential (primary) hypertension, I50.22 - Chronic systolic (congestive) heart failure Vitamin D 25-OH Total 04/08/25 E78.2 - Mixed hyperlipidemia, F41.1 - Generalized anxiety disorder, I10 - Essential (primary) hypertension, I50.22 - Chronic systolic (congestive) heart failure Complete Blood Count no Diff 04/08/25 E78.2 - Mixed hyperlipidemia, F41.1 - Ge neralized anxiety disorder, I10 - Essential (primary) hypertension, I50.22 - Chronic systolic (congestive) heart failure Comprehensive Met. Panel 04/08/25 E78.2 - Mixed hyperlipidemia, F41.1 - Generalized anxiety disorder, I10 - Essential (primary) hypertension, I50.22 - Chronic systolic (congestive) heart failure Lipid Panel 04/08/25 E78.2 - Mixed hyperlipidemia, F41.1 - Generalized anxiety disorder, I10 - Essential (primary) hypertension, I50.22 - Chronic systolic (congestive) heart failure Microalbumin, Random (w Creat) 04/08/25 E78.2 - Mixed hyperlipidemia, F41.1 - Generalized anxiety disorder, I10 - Essential (primary) hypertension, I50.22 - Chronic systolic (congestive) heart failure Referrals Nurse Navigator Referral Z13.9 - Encounter for screening, unspecified Medications: New albuterol sulfate 90 mcg/actuation 2 puffs inhalation Q4-6H 30 days PRN 8.5 grams 0RF shortness of breath or wheezing
[2025-01-10 10:51] VITALS: BP 152/78; PULSE 78; RESP 13; TEMP 36.4; O2SAT 99; BMI 38.1
--- OUTSIDE RECORDS SUMMARY | 2025-01-10 11:20 | XMS_ITS | Data Portability ---
Author Organization [place] - [facility] [facility], [facility] Resident Programs Assistant Address [address] [place] [id number] Assessment Encounter Date Assessment Date Assessment LastModified [...] salt, sugar and carbs. -Zoë Lambert RN [email or web address] Not available 03/12/2021 14:09:57 Plan of Treatment Reminders Order Date Submit Date Provider Last Modified By Organization Details Last Modified Time Details Appointments None recorde d. Lab vitamin D, 1,25-di hydroxy , serum 2022 023 [employer] [facility] (Centralized Electronic Ordering - All Locations), Patient Can Go To The Location Of Their Choice, 3 10:07:31 lipid panel, serum 2022 023 [employer] [facility] (Centralized Electronic Ordering - All Locations), Patient Can Go To The Location Of Their Choice, 10:07:31 CMP, serum or plasma 2022 023 lnovicki [facility] (Centralized Electronic Ordering - All Locations), Patient Can Go To The Location Of Their Choice, 07:40:07 CBC w/ auto diff 2022 023 lnovicki [facility] (Centralized Electronic Ordering - All Locations), Patient Can Go To The Location Of Their Choice, [id number] 3 10:07:31 vitamin D, 25-hydr oxy, total, serum 2021 022 lnovicki [facility] (Centralized Electronic Ordering - All Locations), Patient Can Go To The Location Of Their Choice, [address] 2 10:12:08 TSH, serum or plasma 2021 022 lnovicki [facility] (Centralized Electronic Ordering - All Locations), Patient Can Go To The Location Of Their Choice, [id number] 2 10:12:08 lipid panel, blood 2021 022 lnovicki [facility] (Centralized Electronic Ordering - All Locations), Patient Can Go To The Location Of Their Choice, [address] 2 10:12:08 CMP, serum or plasma 2021 022 lnovicki [facility] (Centralized Electronic Ordering - All Locations), Patient Can Go To The Location Of Their Choice, [id number] 2 10:12:07 CBC w/ diff 2021 022 lnovicki [facility] (Centralized Electronic Ordering - All Locations), Patient Can Go To The Location Of Their Choice, [address] 2 10:12:08 hemoglo bin A1C/hem oglobin total, QN, blood 2020 021 RENU Not available 12:38:40 CMP, serum or plasma 2020 RENU Not available 12:14:02 BNP (B-type natriur etic peptide ), serum or plasma 2020 021 RENU Not available 12:14:02 Referral orthope dic surgeon china house al CTS and right knee injecti on hx 2021 [email or web address] [facility] (Jalil Lubin), [address], [place], [address], 3 07:33:18 orthope dic surgeon referra l - L shoulde r injury 2021 022 [facility], [address] [place], [address], 2 20:50:45 cardiol ogist referra l 2020 021 [facility] (Cardiology), [address] [place], [address], 1 11:47:08 Procedures None recorde d. Surgeries None recorde d. Imaging LDCT, chest, for lung cancer screeni val 2022 023 [facility] (Central Scheduling), [address] [facility], [place], [address], 3 06:52:27 MAMMO, screeni ng, bilater al 2021 022 [facility], [address] [place], [address], 3 08:27:52 XR, shoulde r, 2 or more view 2021 022 [facility] ([facility]), [address] [place] [address], [address], 2 12:23:18 XR, knee, 3 view - right 2020 021 [facility] ([facility]), [address] [place] [address], [address], 1 10:45:13 pharmac ologic stress test 2020 021 [email or web address] [facility] ([facility]), [address] [place] [address], [address], 2 10:20:09 US, echocar diogram , transth oracic, complet e - Dyspnea on exertio n 2020 021 [facility] (Central Scheduling), [address] [place] [address], [place], [address], 15:20:03 XR, chest, 2 view 2020 021 [facility] ([facility]), [place], [address], 15:34:01 Medication Orders aspirin 81 mg tablet, delayed release [address] [facility], [address] [place] [address], [address], 10:28:48 metopro lol tartrat e 50 mg tablet [address] [facility], [address] [place] [address], [address], 10:28:48 aspirin 81 mg tablet, delayed release 2020 021 [facility], [address] [place] [address], [place], [address], 08:05:24 Patient TargetsNo targets recorded. Patient Instructions Encounter Date Encounter Id Patient Instructions Last Modified By Organization Details Last Modified Time 03/02/2021 [id number] smoking cessatio n counseling, greater than 3 minutes up to 10 minutes* RENU Not available 03/02/2021 10:09:02 09/10/2021 [id number] irritable bowel syndrome: care instructions [email or web address] Not available 09/10/2021 15:21:21 03/01/2022 [id number] learning about healthy weight [email or web address] Not available 03/01/2022 10:28:49 01/14/2023 [id number] smoking cessatio n counseling, greater than 3 minutes up to 10 minutes* [email or web address] Not available 01/14/2023 15:33:18 learning about healthy weight [email or web address] Not available 01/14/2023 15:33:18 Reason for Referral Gas Prover Referral for At rial fibrillation Referring Physician: Family Stephy Downing, Encounter Date: 03/02/2021 Orthopedic Surgeon Referral for Injury of left shoulder L shoulder injury Referring Physician: Family Stephy Downing, Encounter Date: 09/10/2021 Orthopedic Surgeon Referral for Bilateral carpal tunnel syndrome bilateral CTS and right knee injection hx Referring Physician: Family Stephy Downing, Encounter Date: 03/01/2022 Results Created Date Observation Date Name Description Value Unit Range Abnormal Flag Note LastModifiedBy Organization Detail LastModifiedTime 03/02/20 21 03/02/2021 COMPR EHENS HERMELINDA METAB OLIC PANEL sodium 141 mEq/L 135-14 5 normal Not Available [address] [place] [address], [address], 03/02/2021 12:14:02 03/02/20 21 03/02/2021 COMPR EHENS HERMELINDA METAB OLIC PANEL potassium 4.0 mEq/L 3.5-5. 1 normal Not Available [address] [place] [address], [address], 03/02/2021 12:14:02 03/02/20 21 03/02/2021 COMPR EHENS HERMELINDA METAB OLIC PANEL chloride 109 mEq/L 98-112 normal Not Available [address] [place] [address], [address], 03/02/2021 12:14:02 03/02/20 21 03/02/2021 COMPR EHENS HERMELINDA METAB OLIC PANEL carbon dioxide 27 mEq/L 20-32 normal Not Available [address] [facility] Station [address] [place] [address], [address], 03/02/2021 12:14:02 03/02/20 21 03/02/2021 COMPR EHENS HERMELINDA METAB OLIC PANEL anion gap 5 mEq/L 5-15 normal Not Available [address] [place] [address], [address], 03/02/2021 12:14:02 03/02/20 21 03/02/2021 COMPR EHENS HERMELINDA METAB OLIC PANEL blood urea nitrogen (BUN) 11 mg/dL 6-23 normal Not Available [address] [place] [address] [address] [place] [address], [address], 03/02/2021 12:14:02 03/02/20 21 03/02/2021 COMPR EHENS HERMELINDA METAB OLIC PANEL creatinine 0.80 mg/dL 0.00-1 .30 normal Not Available [address] [place] [address] [facility] [place] [address], [address], 03/02/2021 12:14:02 03/02/20 21 03/02/2021 COMPR EHENS [...] G5 (kidn ey failu re). Not Available [address] [place] [address] [facility] [place] [address], [address], 03/02/2021 12:14:02 03/02/20 21 03/02/2021 COMPR EHENS HERMELINDA METAB OLIC PANEL glucose 111 mg/dL 70-100 high Fasti ng Refer ence Inter chepe: 70-10 0mg/d L Non-f astin g Refer ence Inter chepe: 70-14 0mg/d L Not Available [address] [place] [address], [address], 03/02/2021 12:14:02 03/02/20 21 03/02/2021 COMPR EHENS HERMELINDA METAB OLIC PANEL calcium 8.8 mg/dL 8.1-10 .4 normal Not Available [address] [place] [address], [address], 03/02/2021 12:14:02 03/02/20 21 03/02/2021 COMPR EHENS HERMELINDA METAB OLIC PANEL bilirubin total 0.3 mg/dL 0.2-1. 3 normal Not Available [address] [place] [address], [address], 03/02/2021 12:14:02 03/02/20 21 03/02/2021 COMPR EHENS HERMELINDA METAB OLIC PANEL aspartate amino transferase 12 IU/L 15-37 low Not Available [address] [place] [address], [address], 03/02/2021 12:14:02 03/02/20 21 03/02/2021 COMPR EHENS HERMELINDA METAB OLIC PANEL alanine aminotransfe rase 25 IU/L 13-56 normal Not Available [address] [place] [address], [address], 03/02/2021 12:14:02 03/02/20 21 03/02/2021 COMPR EHENS HERMELINDA METAB OLIC PANEL total protein 6.7 g/dL 5.9-7. 9 normal Not Available [address] [place] [address], [address], 03/02/2021 12:14:02 03/02/20 21 03/02/2021 COMPR EHENS HERMELINDA METAB OLIC PANEL albumin 3.4 g/dL 2.9-4. 7 normal Not Available [address] [place] [address] [address] [place] [address], [address], 03/02/2021 12:14:02 03/02/20 21 03/02/2021 COMPR EHENS HERMELINDA METAB OLIC PANEL alkaline phosphatase 96 IU/L 18-210 normal Not Available [address] [place] [address], [address], 03/02/2021 12:14:02 03/02/20 21 03/02/2021 NT PRO B TYPE NATRI URETI C PEPT nt pro B type natriuretic pept 36 pg/mL 0-125 normal Not Available [address] [place] [address], [address], 03/02/2021 12:14:02 03/02/20 21 03/02/2021 HEMOG LOBIN A1C hemoglobin A1C 6.1 % 4.4-6. 3 normal Not Available [address] [place] [address], [address], 03/02/2021 12:38:39 01/15/20 23 01/14/2023 smoki ng cessa tion couns eling , great er than 3 minut es up to 10 minut es* Counseling Yes Not Available In-Offi ce Order Internal Use Only DO Not Attach Compendium DO Not Attach Compendium, Do Not Delete/merge, [id number] 01/14/2023 15:32:20 03/02/20 21 03/02/2021 XR, knee, 3 view [facility] g [address] [place] [address] X-Ray Report Signed Patien t: Josué Hughes 4935 : [address]: Lorin Hearn EMR ID: [id number] Age/Se x: 65/F E.D. Attend ing: Acct: [id number] Loc: RAD.6N PCP: Lorin Hearn SENIOR ASSET MANAGER Admit/ Svc Date: Orderi ng Physic aileen: Lorin ny Wallac e, SENIOR ASSET MANAGER Date of Servic e: Proced ure(s) : XR knee RT 3V Reason for Exam: Right knee pain Access ion Number (s): [id number] Fax to: cc: Lorin Hearn NP RIGHT KNEE, THREE VIEWS 021 8:36 AM Techni que: AP, latera l and obliqu e views of the right knee. Findin gs: No fractu re or disloc ation. Mild genera lized osteoa rthrit is. Trace joint fluid. The soft tissue s are normal . Statio n: [id number] Electr onical ly signed on at 1040 by Berny Mena MD. KBUSHE Y [employer] [employer] [facility] (Radiology) [address] [place] [address], [address], 03/02/2021 14:48:36 04/06/20 21 04/06/2021 US, echoc ardio gram, trans thora cic, compl ete [facility] Cardio logy [facility] l [facility] x [address] [place] [address] Cardio vascul ar Report Signed Patien t: Josué Hughes 4935 : [address]: Lorin Hearn EMR ID: [id number] Age/Se x: 65/F E.D. Attend ing: Acct: [id number] Loc: CAV.BE PCP: Lorin Hearn NP Admit/ Svc Date: Orderi ng Physic aileen: Lorin Hearn NP Date of Servic e: Proced ure(s) : CV echo transt horaci c comple te Reason for Exam: dyspne a on exerti on Access ion Number (s): [id number] Fax to: cc: Lorin Hearn NP l1 n 3 Echoca rdiogr aphy Examin ation Transt horaci c Name: Josué Cornejo ion#: [id number] MR#: [id number] Admiss ion Number : [id number] Study Date: 2020 Study Time: 02:31 PM Date Of : 1955 Age: 65 year(s ) Height : 65 in. (165.1 cm) Weight : 250 lbs. (113.4 0 kg) BSA: 2.17 m2 Gender : Female Blood Pressu re: 144 mmHg / 80 mmHg Heart Rate: Proced ure Staff CV Sonogr apher: Antonietta Avendano, Cardia c Sonogr apher Orderi ng Physic aileen: Lorin ny Wallac e Readin g Physic aileen: Harsh H Yang, DO Admitt ing Physic aileen: Lorin [...] prior echoca rdiogr am report dated 020 Laenn Montanez t: Josué Arnoldiss ion: [id number] Study Date: 2020 02:31 PM Page 1 [...] y: [place] te Facili ty Locati on: [facility] Out Patien t Measur [...] - 1.7m/s ) Patien t: Josué Hughes Admiss ion: [id number] Study Date: 2020 02:31 PM Page 2 [...] sq (16ml/ m sq - 34ml/m sq) Tarik t: Josué Hughes [facility] ion: [id number] Study Date: 2020 02:31 PM Page 3 of 4 Electr onical ly signed by Mohan Yang DO on 2020 at 03:16 PM Tarik t: Josué Hughes [facility] ion: [id number] Study Date: 2020 02:31 PM Page 4 [...] onical ly signed on at 1431 by Mohan Yang DO. GERSON soares [employer] [employer] (Radiology) [address] [place] [address], [address], 04/22/2021 10:53:03 Result Notes None recorded. Problems Name Problem SNOMED Code Status Onset Date Resolution Date Notes Provider Name and Address Organization Details Recorded Time Hyperten sive disorder 30142810 Active 2019 Antonietta Lambert, RN [address] [place], [address], [facility] 0 09:47:25 Hyperlip idemia 52678101 Active 2019 Marquis Arenas [facility], [facility] 0 08:27:49 Tobacco dependen ce syndrome 69353353 Active 2019 Marquis Arenas [facility], [facility] 0 08:27:49 Pulmonar y emphysem a 44389381 Active 2019 Marquis Arenas [facility], [facility] 0 08:27:49 Irreduci ble incision al hernia 074501339 Completed 03/14/2020 ED VUONG NP [address] [place], [address], [facility] [employer] [facility] 0 08:57:52 Erythema multifor me 70862640 Active Marquisshirley Arenas [facility], [facility] 0 08:27:48 Low back pain 230768271 Completed 03/14/2020 ED VUONG NP [address] [place], [address], [facility] 0 08:57:50 Pain in female pelvis 017166801 Completed 03/14/2020 ED VUONG NP [address] [place], [address], [facility] 0 08:52:55 Patient encounte r status 331850313 Completed 03/14/2020 ED VUONG NP [address] [place], [address], [facility] 0 08:52:47 Postmeno pausal bleeding 69860927 Completed 03/14/2020 Removal Reason: had hysterec ramona ED VUONG, SENIOR ASSET MANAGER [address] [place], [address], [facility] 0 08:58:04 Uterine leiomyom a 14869673 Completed 03/14/2020 Removal Reason: hysterec ramona ED VUONG, SENIOR ASSET MANAGER [address] [place], [address], [facility] 0 08:58:18 Necrotiz ing fasciiti s 42166854 Completed 03/14/2020 ED VUONG, SENIOR ASSET MANAGER [address] [place] [address], [address], [facility] 0 08:53:27 Surgical follow-u p 110071077 Completed 03/14/2020 ED VUONG, DANNY [address] [place] [address], [address], [facility] 0 08:53:13 Cyst 700303352 Completed 03/14/2020 ED VUONG, DANNY [address] [place] [address], [address], [facility] 0 08:53:36 Pain of shoulder region 85790152 Completed 03/14/2020 ED VUONG, DANNY [address] [place] [address], [address], [facility] 0 08:58:09 Increase d frequenc y of urinatio n 371437128 Completed 03/14/2020 ED VUONG, DANNY [address] [place] [address], [address], [facility] 0 08:57:46 Injury of kidney 77707689 Active Marquis Arenas [facility], [facility] [employer] [facility] 0 08:27:49 Intestin al hernia 04549280 Completed 03/14/2020 ED VUONG, DANNY [address] [place] [address], [address], 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 5486585751 1543624 Active Marquis Arenas null, [facility] 0 08:27:49 History of hysterec ramona 172868947 Active Marquis Arenas null, [facility] 0 08:27:49 Trichomo nal vaginiti s 471136766 Completed 03/14/2020 ED VUONG, DANNY [address] [place] [address], [address], [facility] 0 08:53:06 Atrial fibrilla tion 02088167 Active Marquis Arenas [facility], [facility] 0 08:27:49 Peripher al nerve disease 160148457 Active Marquis Arenas null, [facility] 0 08:27:49 Incision al hernia 158045878 Completed 03/14/2020 Removal Reason: repaired ED VUONG, DANNY [address] [place] [address], [address], [facility] 0 08:57:41 Endometr ium thickene d 990308764 Completed 03/14/2020 ED VUONG NP [address] [place] [address], [address], [facility] 0 08:57:17 Postoper ative nausea and vomiting 5489650 Completed 03/14/2020 ED VUONG NP [address] [place] [address], [address], [facility] 0 08:58:24 History of excision of small intestin e 3726469869 07868 Completed 03/14/2020 Removal Reason: historic al ED VUONG, DANNY [address] [place] [address], [address], [facility] [employer] [facility] 0 08:57:28 Dyspnea on exertion 66615267 Active 2019 ED VUONG, DANNY [address] [place] [address], [address], [facility] 0 08:57:04 Left side sciatica 6994497234 81528 Active 2019 ED VUONG, DANNY [address] [place] [address], [address], [facility] [employer] [facility] 0 08:57:07 Cervical radiculo davi 36109896 Active 2019 ED VUONG, SENIOR ASSET MANAGER [address] [place] [address], [address], [facility] 0 08:59:17 Headache 57091269 Active 2019 ED VUONG, DANNY [address] [place] [address], [address], [facility] [employer] [facility] 0 09:15:15 Osteopen ia 027116442 Active 2020 ED VUONG, DANNY [address] [place] [address], [address], [facility] [employer] [facility] 1 08:56:25 Bilatera l carpal tunnel syndrome 3476192008 9848784 Active 2020 ED VUONG, DANNY [address] [place] [address], [address], [facility] [employer] [facility] 1 08:56:27 Screenin g for malignan t neoplasm of colon Active 2020 ED VUONG, DANNY [address] [place] [address], [address], [facility] [employer] [facility] 1 08:56:31 Screenin g mammogra phy Active 2020 ED VUONG, DANNY [address] [place] [address], [address], [facility] [employer] [facility] 1 08:56:32 Irritabl e bowel syndrome 31609604 Active 2020 EDDulce VUONG, SENIOR ASSET MANAGER [address] [place] [address], [address], [facility] [employer] [facility] 1 08:28:55 Pain in right knee Active 2020 ED VUONG, SENIOR ASSET MANAGER [address] [place], [address], [facility] [employer] [facility] 1 08:07:10 Hypergly cemia 04033724 Active 2020 EDDulce VUONG, SENIOR ASSET MANAGER [address] [place], [address], [facility] [employer] [facility] 1 08:09:23 Edema of lower extremit y 772326499 Active 2020 EDDulce VUONG, SENIOR ASSET MANAGER [address] [place] [address], [address], [facility] [employer] [facility] 1 08:10:58 Morbid obesity 363824293 Active 2021 EDDulce VUONG, SENIOR ASSET MANAGER [address] [place] [address], [address], [facility] 2 10:24:03 Benign essentia l hyperten ayesha 6352578 Active 2021 ED VUONG, SENIOR ASSET MANAGER [address] [place] [address], [address], [facility] [employer] [facility] 2 10:29:20 Problem Notes None recorded. Procedures Surgical History Date Name Laterality Status Provider Name and Address Organization Details Recorded Time Hysterectomy completed Marquis Still [facility] 12/02/2020 08:15:46 Hernia Repair completed Marquis Arenas [facility] [employer] [facility] 12/02/2020 08:15:53 Unlisted elsy [facility] dvrtclm completed Santhosh Carrizales [address] [place] [address], [address], [facility] [employer] [facility] 01/26/2021 07:54:08 Imaging Results None recorded. Procedure Notes None recorded. Medical Equipment None Reported. Allergies Allergen ID Allergen Name Allergen Category Reaction Reaction Severity Criticality Documentation Date Start Date Code Code System Note Provider Name and Address Organization Details Recorded Time 282854 Product containin g penicilli n (product) medicatio n Not available Not available Not available 12/02/2020 64610 [id number] SNMARCEL Marquis Sue polanco [place] - [facility] 08:13:14 Medications Name Sig Start Date Stop [...] Updated DateTime 3 165.1 cm 37.1 kg/m2 290021. 1 g 16 /min 97 [degF] 98 % 98 % 76 /min 138 mm[Hg] 76 mm[Hg] [facility] Xia[facility] Robert 3 15:22:00 Date Recorded Body height Body mass index (BMI) Body weight Respiratory rate Body temperature Oxygen saturation Oxygen saturation in Arterial blood by Pulse oximetry Heart rate Systolic blood pressure Diastolic blood pressure Provider Name and Address Organization Details Last Updated DateTime 2 165.1 cm 36.1 kg/m2 00278.5 4 g 17 /min 98.6 [degF] 98 % 98 % 78 /min 134 mm[Hg] 82 mm[Hg] Gregory Frost [facility] 2 09:57:08 Date Recorded Body height Body mass index (BMI) Body weight Body temperature Respiratory rate Oxygen saturation Oxygen saturation in Arterial blood by Pulse oximetry Heart rate Systolic blood pressure Diastolic blood pressure Provider Name and Address Organization Details Last Updated DateTime 1 165.1 cm 41.9 kg/m2 546607. 28 g 98.2 [degF] 16 /min 97 % 97 % 80 /min 178 mm[Hg] 99 mm[Hg] Santhosh Carrizales [address] [place], [address] [place] [address] Xiaoi Robert 1 07:41:55 Date Recorded Body height Body mass index (BMI) Body weight Heart rate Respiratory rate Systolic blood pressure Diastolic blood pressure Provider Name and Address Organization Details Last Updated DateTime 165.1 cm 41.5 kg/m2 223237. 2 g 96 /min 16 /min 160 mm[Hg] 82 mm[Hg] Antonietta Lambert, RN [address] [place], [address], [facility] 14:02:55 Social History Question Answer Notes LastModified by Organizat ion Details LastModified Time Tobacco Smoking Status Current Every Day Smoker 4-5 cigg daily ED VUONG NP [address] [place], [address], [facility] - Xiaoi Robert 12/02/2020 08:31:09 What Is Your Level Of Caffeine Consumption? [...] For COVID-19? No Information not available 01/26/2021 Are There Any Guns Present In Your [...] ion Details LastModified Time What is your level of alcohol consumption? Occasional Information not available 12/02/2020 What is your occupation? Retired Information not available 12/02/2020 What is your exercise level? Occasional Information [...] N Gout N Cardiac History, Heart Murmur, AL N Eye or Vision Problems Y Gynecologic [...] dose 11/14/2020 completed Marquis polanco [place] - Xiaoi Robert 12/02/2020 08:14:02 Past Encounters Encounter ID Performer Location Encounter Start Date Encounter Closed Date Diagnosis/Indication Diagnosis SNOMED-CT Code Diagnosis ICD10 Code Diagnosis Note [id number] Wolf Carrizales MD [address] [address] 10/09/2019 09:18:12 10/09/2019 09:53:32 Hypertensive disorder 99535773 I10 [id number] Wolf Carrizales MD [address] [address] 11/01/2019 07:52:15 11/01/2019 13:09:24 Hypertensive disorder 30113275 I10 Unable to check at home. Is still taking amlodipine 10mg QD and metoprolol 50mg TID.Report s asymptomat ic.Reviewe d concerning signs of uncontroll ed HTN. Hyperlipidemia 97963527 E78.5 Reviewed labs borderline high. Diet and exercise for control. Recheck at 6 month interval. Tobacco de pendence syndrome 51125703 F17.200 Encouraged quitting smoking efforts. Reviewed health benefits. Pulmonary emphysema [address] reviewed with patient and due 09/2020 [id number] Wolf Carrizales MD [address] [address] 03/14/2020 08:19:44 03/14/2020 09:34:57 Hyperlipidemia 00947998 E78.5 Reviewed labs borderline high. Diet and exercise for control. Recheck at 6 month interval. Hypertensive disorder 38 070814 I10 Unable to check at home. Is [...] have a smoking hx. Left side sciatica 71931 84604 35330 M54.32 PT order placed. Cervical radiculopathy 51320699 M54.12 EMG ordered and can address with PT. Strength intact and ROM intact. Obesity 119204924 E66.9 diet, exercise and weight loss reviewed. labs ordered. Vitamin D deficiency 347 29221 E55.9 is taking 1000iu QD. Headache 19064989 R51 Atypical headache like sxs. Seems to be more superficia l scalp pain. Alleviated with pressure applied to region.adv ised updating eye exam has been 7+ years.If worsening or changing sxs call office or ER. [id number] Wolf Carrizales MD [address] [address] 08/14/2020 09:15:05 08/14/2020 10:12:50 Patellar tendonitis 63428785 M76.50 begin prednisone , ice and can use topical icy hot at night. IF not improving follow up for XR and ortho referral. [id number] Wolf Carrizales MD [address] [place] [address] 12/02/2020 08:06:57 12/02/2020 08:46:38 Adult health examination 617674297 Z00.00 Update all fasting labs, mammo and colonoscop y and bone density due. Hyperlipidemia 09858197 E78.5 Reviewed labs borderline high. Diet and exercise for control. Lipids elevated in past did not recheck at 6 mos due to COVID. Hypertensive disorder 38 294183 I10 BP borderline . Encouraged to Cont amlodipine 10mg and metoprolol 50mg TID as directed. Tobacco de pendence syndrome 22793812 F17.200 Encouraged quitting smoking efforts. Reviewed health benefits. LDCT overdue Screening mammography 24 782316 Z12.31 Mammo overdue. Screening for malignant neoplasm of colon 353321923 Z12.11 colonoscop y never done. Bilateral carpal tunnel syndrome 1338921236 5576603 G56.03 follow up with Ortho again Osteopenia 740753760 M85 .80 Bone density ordered. She has never had done. Obesity 838044115 E66.9 diet, exercise and weight loss reviewed. labs ordered. [id number] Wolf Carrizales MD [facility] [address] [place] [address] 01/26/2021 07:43:23 01/26/2021 08:14:40 Hypertensive disorder 43142913 I10 BP high. begin checking BP daily Cont amlodipine 10mg and increase metoprolol 75mg TID as directed. Irritable bowel syndrome 68573077 K58.9 f/u with GI. has colonoscop y sched 02/13. [id number] Wolf Carrizales MD [facility] [address] [place] [address] 03/02/2021 07:36:43 03/02/2021 08:14:32 Hypertensive disorder 90789864 I10 uncontroll ed on-amlodip ine 10mg.metop rolol 100mg BID she stopped because made her nausea and did not resume 50mg TID. Resume metoprolol 50mg 1 AM and noon then 100mg QHS.f/u 1 week.Pendi ng BNP and CMP may add on diretic as well Tobacco de pendence syndrome 17759391 F17.200 Encouraged quitting smoking efforts. Reviewed health benefits. LDCT due 12/2021 Emphysema noted Atrial fibrillation 4943 6004 I48.91 Has not followed up with cardiology . reports dyspnea increased. Dyspnea on exertion 6084 5006 R06.09 Echo 04/2020 normal.[place] to extent she needs to stop and rest frequently throughout the day. She does have a smoking hx. Hyperglycemia 15927399 R 73.9 Glucose was 110 in november on CMP. Will update and A1c Pulmonary emphysema [address] due 12/2021. Smoking cessation stressed. Pain in right knee 61750 99387 06690 M25.561 Complete today for eval If arthritis will refer to orthopedic vs PT Edema of l ower extremity 805240204 R60.0 BNP ordered. Coarse crackle and rhonchi noted. 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 [id number] Wolf Carrizales MD [facility] [address] [facility] [place] [address] 03/12/2021 13:42:29 03/12/2021 14:10:33 Hypertensive disorder 62946720 I10 [id number] DE VUONG NP [facility] [address] [facility] [place], [place] [address] 09/10/2021 15:08:46 09/10/2021 15:49:22 Injury of left shoulder 7750653453 0904652 S49.92XA Fell last year. Worsening LUE numbness and tingling from shoulder area. Ortho ref and XR ordered. Irritable bowel syndrome 81497964 K58.9 f/u with GI for increase in loose stool. Fiber intake and diet reviewed. if not improving or long wait to be seen can order CT as well. Bilateral carpal tunnel syndrome 0121684506 8148079 G56.03 follow up with Ortho again New referral in place Dyspnea on exertion 6084 5006 R06.09 Echo 04/2020 and 03/2021 both normal.[place] to extent she needs to stop and rest frequently throughout the day. She does have a smoking hx.Possibl e r/t COPDShe would likely benefit from cardiopulm rehab [id number] ED VUONG NP [facility] [address] [facility] [place], [place] [address] 03/01/2022 09:26:13 03/01/2022 10:24:40 Atrial fibrillation 78251215 I48.91 no cardiology notes in [facility]. Echo report was found and will scan in for review. Benign ess ential hypertension 0028964 I10 BP stable. Cont metoprolol 50mg TID, amlodipine 10mg QD and chlorthali done. 12.5mg QD. Bilateral carpal tunnel syndrome 3677264803 3587167 G56.03 follow up with Ortho again New referral in place Hyperlipidemia 57353016 E78.5 2020 borderline high. She has been working on diet and has lost approx 30lbs. encouraged to continu efforts. Labs ordered. Morbid obesity 188091829 E66.01 BMI today: 36.1Cont with healthy diet and incorporat e exercise. Fasting labs due. Vitamin D deficiency 347 91869 E55.9 is taking 1000iu QD. Screening mammography 24 502197 Z12.31 Mammo overdue. [id number] ED VUONG NP [facility] [address] [place] [address] 01/14/2023 14:38:29 01/14/2023 15:57:21 Benign essential hypertension 0084445 I10 BP stable. Cont metoprolol 50mg TID, amlodipine 10mg QD.UPdate labs Hyperlipidemia 74348414 E78.5 2020 borderline high. She has been working on diet and has lost approx 25lbs. encouraged to continue efforts. Labs ordered.Up date labs. Morbid obesity 582178527 E66.01 BMI today: 37.1Cont whole foods diet and exercise/a ctivity as tolerated. Vitamin D deficiency 347 64773 E55.9 is taking 1000iu QD. Tobacco de pendence syndrome 76216466 F17.200 Encouraged quitting smoking efforts. Reviewed health benefits. LDCT due 12/2021 Emphysema noted Health Concerns Section Related Observation LastModified by Organization Detai ls LastModified Time None Recorded Concern Status LastModified by Organization Details LastModified Time None Recorded Advance Directives Directive None Recorded Payers Encounter Date Sequence Insurance Name Policy Number Policy Brooks Covered Member ID Brooks Member ID Guarantor Name 03/02/2021 1 [facility] (MEDICARE REPLACEMENT/A DVANTAGE - PPO) [id number] Janeth Hughes [id number] Janeth Hughes 03/12/2021 1 [facility] (MEDICARE REPLACEMENT/A DVANTAGE - PPO) [id number] Janeth Hughes [id number] Janeth Hughes 09/10/2021 1 [facility] (MEDICARE REPLACEMENT/A DVANTAGE - PPO) [id number] Janeth Hughes [id number] Janeth Hughes 03/01/2022 1 [facility] (MEDICARE REPLACEMENT/A DVANTAGE - PPO) [id number] Janeth Hughes [id number] Janeth Hughes 01/14/2023 1 [facility] (MEDICARE REPLACEMENT/A DVANTAGE - PPO) [id number] Janeth Hughes [id number] Janeth Hughes Notes Date Note Type Note [...] alot of carbs. All other ROS neg. ED VUONG, DANNY [address] [place] [address], [place], [address], [facility] - Xiaoi Robert 03/02/2021 08:18:34 03/12/2021 text/html 28227 - Pt presented for BP check ED VUONG NP [address] [place] [address], [place], [address], [facility] - Xiaoi Robert 03/12/2021 14:58:23 09/10/2021 text/html Telephone call placed [...] documentation available in her chart will check meditech. All other ROS neg. ED VUONG, DANNY [address] [place], [address], [facility] Xiaoi Robert 09/10/2021 15:57:12 03/01/2022 text/html In office f/u to day She has been having this ongoing now since her small bowel resection in 12/2019. She has been working on weight loss changed her diet and has been avoiding starchy carbs. She has moved to the [facility] and would like to cont care in our office but to do all labs and testing at [facility] facilities as this is easier for her. Chart review-Fasting labs-DueCOlonoscopy -ordered 2020 no record or report in meditech per patient she did it and it was good.mammo-DueBone density-2020 5-10 yrs Cardiac-Stable. Update fasting labs.no cardiology notes in chart will look in meditech was noted she needed cardiac clearance for colonoscopy last year. Bowels-She had normal colonoscopy per patient. No reports or notes available. SHe reports bowels improved. All other ROS neg. ED VUONG, DANNY [address] [place], [address], [facility] Xiaoi Robert 03/01/2022 10:46:39 01/14/2023 text/html In office f/u to day for clearance to work as a [employer].She has been working on weight loss changed her diet and has been avoiding starchy carbs. She has moved to the [facility] and would like to cont care in our office but to do all labs and testing at [facility] facilities as this is easier for her. Chart review-Fasting labs-DueColonoscopy -ordered 2020 no record or report in meditech per patient she did it and it was good.mammo-Sched for JulyBone density-2020 5-10 yrsLDCT- overdue done 12/2020 Cardiac-Stable. Update fasting labs.no cardiology notes in chart will look in meditech was noted she needed cardiac clearance for colonoscopy last year.NEG ECHO 04/06/21 Bowels-She had normal colonoscopy per patient. No reports or notes available. SHe reports bowels improved. All other ROS neg. ED VUONG, SENIOR ASSET MANAGER [address] [place], [address], [facility] - [facility] [employer] [facility] 01/14/2023 15:44:55 OBGyn Episode No OBEpisode recorded.
[2025-01-10 11:39] VITALS: BP 138/70
== END 2025-01-10 11:37 | disposition home or self-care (01) ==
LOC: HO.HMCFM 09:55
PROVIDERS: PCP Nurse Practitioner Family; Visit Provider Nurse Practitioner Family
DX: I50.22 Chronic systolic (congestive) heart failure (principal); F41.1 Generalized anxiety disorder; I10 Essential (primary) hypertension; E78.2 Mixed hyperlipidemia; F33.0 Major depressive disorder, recurrent, mild; I73.9 Peripheral vascular disease, unspecified; F17.200 Nicotine dependence, unspecified, uncomplicated; Z13.9 Encounter for screening, unspecified

== ENCOUNTER → 2025-01-10 09:55 | Outpatient (BNVA) | payer MEDICARE, SELFPAY | PROVIDERS: PCP Nurse Practitioner Family; Visit Provider Nurse Practitioner Family | DX: I11.0 Hypertensive heart disease with heart failure (principal); I50.22 Chronic systolic (congestive) heart failure; F41.1 Generalized anxiety disorder; E78.2 Mixed hyperlipidemia; F33.0 Major depressive disorder, recurrent, mild; I73.9 Peripheral vascular disease, unspecified; F17.200 Nicotine dependence, unspecified, uncomplicated; Z71.6 Tobacco abuse counseling | CPT/HCPCS: 99212 ==

== ENCOUNTER 2025-05-23 07:52 | Outpatient (REF) | payer MEDICARE, SELFPAY ==
[2025-05-23 11:23] LABS: Hematocrit 43.1 % (37.0-47.0); Hemoglobin 14.5 g/dl (12.0-16.0); Mean Corpuscular HGB Conc 33.6 g/dl (31.0-35.0); Mean Corpuscular Hemoglobin 31.5 pg (27.0-33.0); Mean Corpuscular Volume 93.7 fL (80.0-98.0); NRBC Abs Auto 0.000 X10*3/uL (0.0-0.012); NRBC Pct Auto 0.0 /100WBC (0.0-0.2); Platelet Count 296 X10*3/uL (160-400); Red Blood Count 4.60 X10*6/uL (4.20-5.50); White Blood Count 4.8 X10*3/uL (4.8-10.8)
[2025-05-23 12:09] LABS: Alanine Aminotransferase 29 U/L (0-31); Albumin Level 4.2 g/dL (3.5-5.0); Alkaline Phosphatase 73 U/L (39-117); Anion Gap 13 (12-20); Aspartate Amino Transferase 27 U/L (5-31); Blood Urea Nitrogen 11 mg/dL (9-16); Calcium 9.6 mg/dL (8.4-10.2); Carbon Dioxide 30 mmol/L (22-29); Chloride 104 mmol/L (96-108); Cholesterol 162 mg/dL (<200); Estimated Glomerular Filt Rate > 60; HDL Cholesterol 42 mg/dL (>40); Potassium 3.5 mmol/L (3.3-5.1); Sodium 143 mmol/L (135-145); Total Protein 7.2 g/dL (6.5-8.0); Triglycerides 164 mg/dL (<150)
[2025-05-23 12:42] LABS: Folate 8.3 ng/mL (> or = 4.0); Vitamin B12 889 pg/mL (200-900)
== END 2025-05-23 07:53 | disposition home or self-care (01) ==
LOC: HO.WFDLDS 07:52
PROVIDERS: PCP Nurse Practitioner Family; Visit Provider Nurse Practitioner Family
DX: Z00.00 Encounter for general adult medical examination without abnormal findings (principal); I11.0 Hypertensive heart disease with heart failure; I50.22 Chronic systolic (congestive) heart failure; J41.0 Simple chronic bronchitis; F17.200 Nicotine dependence, unspecified, uncomplicated; I73.9 Peripheral vascular disease, unspecified; R01.1 Cardiac murmur, unspecified; J06.9 Acute upper respiratory infection, unspecified; R29.6 Repeated falls; E78.2 Mixed hyperlipidemia; N39.45 Continuous leakage; Z71.89 Other specified counseling; R82.90 Unspecified abnormal findings in urine; Z78.0 Asymptomatic menopausal state; R30.0 Dysuria; Z13.21 Encounter for screening for nutritional disorder; Z71.6 Tobacco abuse counseling
CPT/HCPCS: 36415; 80053; 80061; 82306; 82607; 82746; 84443; 85027; 93005; 96127; 99212; 99497

== ENCOUNTER 2025-05-23 07:52 | Outpatient (AMB) | payer MEDICARE, SELFPAY ==
--- OUTSIDE RECORDS SUMMARY | 2025-05-23 07:56 | XMS_ITS | Data Portability ---
Author Organization [facility]ANK[facility]/ARNIE, [facility] Address [address] [place] [id number] Assessment No assessment recorded. Plan of Treatment Reminders Order Date Submit Date Provider Last Modified By Organization Details Last Modified Time Details Appointments None recorded. Lab None recorded. Referral None recorded. Procedures None recorded. Surgeries None recorded. Imaging None recorded. Medication Orders doxycyclin e hyclate 100 mg capsule 2018 019 INTERFACE [facility], [address] [place] [address], [address], 9 14:39:12 prednisone 10 mg tablet 2018 019 INTERFACE [facility], [address] [place], [address], 9 14:39:13 Patient TargetsNo targets recorded. Patient InstructionsNo instructions recorded. Reason for Referral None Reported. Problems Name Problem SNOMED Code Status Onset Date Resolution Date Notes Provider Name and Address Organization Details Recorded Time Essential hypertension 54675941 Active 2018 KIARRA Alba [address] [place] [address], [place], [address], [facility]/WIP 9 14:03:20 Chronic obstructive pulmonary disease 37569091 Active 2018 KIARRA Alba [address] [address], [place] [place], [address], [facility] PMA/WIP 9 14:03:27 Problem Notes None recorded. [...] Available Vitals Date Recorded Body temperature Systolic And Diastolic Provider Name and Address Organization Details Last Updated DateTime 10/31/2018 98.6 [degF] 124/78 mm[Hg] Yael Blackman [place] - PMA/[place] P 10/31/2018 13:41:52 Social History None recorded. Functional Status None recorded. Mental Status None recorded. Family History Nothing Reported. Medical History No medical history recorded. Gynecological HistoryNo gynecological history recorded. Obstetrics History GPAL:G 0 P 0 0 0 0 Past Encounters Encounter ID Performer Location Encounter Start Date Encounter Closed Date Diagnosis/Indication Diagnosis SNOMED-CT Code Diagnosis ICD10 Code Diagnosis IMO Codes Diagnosis Note [id number] KIARRA Alba [facility] [address] [place] [address] 10/31/2018 13:24:58 10/31/2018 14:50:54 Acute exacerbation of chronic obstructive pulmonary disease 858082068 J44.1 - Rest and fluids - continue using the nebulizer - note to work Health Concerns Section Related Observation LastModified by Organization Detai ls LastModified Time None Recorded Concern Status LastModified by Organization Details LastModified Time None Recorded Advance Directives Directive None Recorded Payers Insurance Date Sequence Insurance Name Policy Number Policy Brooks Covered Member ID Brooks Member ID Guarantor Name 10/31/[address] [place] [address] [id number] Janeth Hughes [id number] Janeth Hughes Notes Date Note Type Note Provider Name and Address Organization Details Recorded Time 10/31/2018 text/html ROS as noted in the HPI 63 yo F is here c/o productive cough, congestion, chills and hot for the past 4 days. Taking alkaseltzer plus, cold medicine from [employer] store not helping much. Having rib pain due to the couging or SOB after the cough, wheezing, swelling in the legs. Allergies: PCN Medication: amlodipine and metoprolol PCP: Dr. Nayak PmHX: HTN, COPD social: 5 cigarettes a day. KIARRA Alba [address] [place] [address], [address], [place], [address], [place] - PMA/WIP 10/31/2018 14:39:39 OBGyn Episode No OBEpisode recorded.
--- OUTSIDE RECORDS SUMMARY | 2025-05-23 07:57 | XMS_ITS | Data Portability ---
Author Organization [place] - [employer] 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 -Zoë Lambert RN [email or web address] Not available 03/12/2021 14:09:57 Plan of Treatment Reminders Order Date Submit Date Provider Last Modified By Organization Details Last Modified Time Details Appointments None recorde d. Lab vitamin D, 1,25-di hydroxy , serum 2022 023 lnElect[facility] (Centralized Electronic Ordering - All Locations), Patient Can Go To The Location Of Their Choice, [address] 3 10:07:31 lipid panel, serum 2022 023 [facility] (Centralized Electronic Ordering - All Locations), Patient Can Go To The Location Of Their Choice, [address] 3 10:07:31 CMP, serum or plasma 2022 023 [facility] (Centralized Electronic Ordering - All Locations), Patient Can Go To The Location Of Their Choice, [address] 07:40:07 CBC w/ auto diff 2022 023 lnovicki [facility] (Centralized Electronic Ordering - All Locations), Patient Can Go To The Location Of Their Choice, [address]995 3 10:07:31 vitamin D, 25-hydr oxy, total, serum 2021 022 [email or web address] [facility] (Centralized Electronic Ordering - All Locations), Patient Can Go To The Location Of Their Choice, [address] 2 10:12:08 TSH, serum or plasma 2021 022 lnovicki [facility] (Centralized Electronic Ordering - All Locations), Patient Can Go To The Location Of Their Choice, 501[address] 2 10:12:08 lipid panel, blood 2021 022 lnovicki [facility] (Centralized Electronic Ordering - All Locations), Patient Can Go To The Location Of Their Choice, [address] 2 10:12:08 CMP, serum or plasma 2021 022 lnovicki [facility] (Centralized Electronic Ordering - All Locations), Patient Can Go To The Location Of Their Choice, 148[address] 2 10:12:07 CBC w/ diff 2021 022 [email or web address] [facility] (Centralized Electronic Ordering - All Locations), Patient Can Go To The Location Of Their Choice, [address]118 2 10:12:08 hemoglo bin A1C/hem oglobin total, QN, blood 2020 021 RENU Not available 12:38:40 CMP, serum or plasma 2020 021 RENU Not available 12:14:02 BNP (B-type natriur etic peptide ), serum or plasma 2020 021 RENU Not available 12:14:02 Referral orthope dic surgeon referra mala house al CTS and right knee injecti on hx 2021 022 [email or web address] [facility] (Jalil Lubin), [address] [place], [address], 3 07:33:18 orthope dic surgeon referra l - L shoulde r injury 2021 022 [facility], [address] [place], [address], 2 20:50:45 cardiol ogist china l 2020 021 [facility] (Cardiology), [address] [place], [address], 1 11:47:08 Procedures None recorde d. Surgeries None recorde d. Imaging LDCT, chest, for lung cancer screeni ng 2022 023 [facility] (Central Scheduling), [address], [place], [address], 3 06:52:27 MAMMO, screeni ng, bilater al 2021 022 [facility], [address] [place], [address], 3 08:27:52 XR, shoulde r, 2 or more view 2021 022 [facility] ([facility]), [address] [place] [address], [address], 2 12:23:18 XR, knee, 3 view - right 2020 021 [facility] ([facility]), [address] [place] [address], [address], 1 10:45:13 pharmac ologic stress test 2020 021 [email or web address] [facility] ([facility]), [address] [place] [address], [address], 2 10:20:09 US, echocar diogram , transth oracic, complet e - Dyspnea on exertio n 2020 021 [facility] (Central Scheduling), [address] [place] [address], [address], 15:20:03 XR, chest, 2 view 2020 021 [facility] ([facility]), [address] [place] [address], [address], 15:34:01 Medication Orders aspirin 81 mg tablet, delayed release [address] [facility], [address] [place] [address], [address], 2 10:28:48 metopro lol tartrat e 50 mg tablet [address] [facility], [address] [place] [address], [address], 2 10:28:48 aspirin 81 mg tablet, delayed release 2020 021 [facility], [address] [place] [address], [place], [address], 08:05:24 Patient TargetsNo targets recorded. Patient Instructions Encounter Date Encounter Id Patient Instructions Last Modified By Organization Details Last Modified Time 03/02/2021 [id number] smoking cessatio n counseling, greater than 3 minutes up to 10 minutes* RENU Not available 03/02/2021 10:09:02 09/10/2021 [id number] irritable bowel syndrome: care instructions [email or web address] Not available 09/10/2021 15:21:21 03/01/2022 [id number] learning about healthy weight [email or web address] Not available 03/01/2022 10:28:49 01/14/2023 [id number] smoking cessatio n counseling, greater than 3 minutes up to 10 minutes* [email or web address] Not available 01/14/2023 15:33:18 learning about healthy weight [email or web address] Not available 01/14/2023 15:33:18 Reason for Referral Cytogenetics Technologist Referral for At rial fibrillation Referring Physician: [...] 141 mEq/L 135-14 5 normal Not Available [address] [place] [address], [address], 03/02/2021 12:14:02 03/02/20 21 03/02/2021 COMPR EHENS HERMELINDA METAB OLIC PANEL potassium 4.0 mEq/L 3.5-5. 1 normal Not Available [address] [place] [address], [address], 03/02/2021 12:14:02 03/02/20 21 03/02/2021 COMPR EHENS HERMELINDA METAB OLIC PANEL chloride 109 mEq/L 98-112 normal Not Available [address] [place] [address], [address], 03/02/2021 12:14:02 03/02/20 21 03/02/2021 COMPR EHENS HERMELINDA METAB OLIC PANEL carbon dioxide 27 mEq/L 20-32 normal Not Available [address] [place] [address] [address] [place] [address], [address], 03/02/2021 12:14:02 03/02/20 21 03/02/2021 COMPR EHENS HERMELINDA METAB OLIC PANEL anion gap 5 mEq/L 5-15 normal Not Available [address] [place] [address], [address], 03/02/2021 12:14:02 03/02/20 21 03/02/2021 COMPR EHENS HERMELINDA METAB OLIC PANEL blood urea nitrogen (BUN) 11 mg/dL 6-23 normal Not Available [address] [place] [address] [facility] [place] [address], [address], 03/02/2021 12:14:02 03/02/20 21 03/02/2021 COMPR EHENS HERMELINDA METAB OLIC PANEL creatinine 0.80 mg/dL 0.00-1 .30 normal Not Available [address] [place] [address] [address] [place] [address], [address], 03/02/2021 12:14:02 03/02/20 21 03/02/2021 COMPR EHENS [...] G5 (kidn ey failu re). Not Available [address] [place] [address] [address] [place] [address], [address], 03/02/2021 12:14:02 03/02/20 21 03/02/2021 COMPR EHENS HERMELINDA METAB OLIC PANEL glucose 111 mg/dL 70-100 high Fasti ng Refer ence Inter chepe: 70-10 0mg/d L Non-f astin g Refer ence Inter chepe: 70-14 0mg/d L Not Available [address] [place] [address], [address], 03/02/2021 12:14:02 03/02/20 21 03/02/2021 COMPR EHENS HERMELINDA METAB OLIC PANEL calcium 8.8 mg/dL 8.1-10 .4 normal Not Available [address] [place] [address], [address], 03/02/2021 12:14:02 03/02/20 21 03/02/2021 COMPR EHENS HERMELINDA METAB OLIC PANEL bilirubin total 0.3 mg/dL 0.2-1. 3 normal Not Available [address] [place] [address], [address], 03/02/2021 12:14:02 03/02/20 21 03/02/2021 COMPR EHENS HERMELINDA METAB OLIC PANEL aspartate amino transferase 12 IU/L 15-37 low Not Available [address] [place] [address], [address], 03/02/2021 12:14:02 03/02/20 21 03/02/2021 COMPR EHENS HERMELINDA METAB OLIC PANEL alanine aminotransfe rase 25 IU/L 13-56 normal Not Available [address] [place] [address], [address], 03/02/2021 12:14:02 03/02/20 21 03/02/2021 COMPR EHENS HERMELINDA METAB OLIC PANEL total protein 6.7 g/dL 5.9-7. 9 normal Not Available [address] [place] [address], [address], 03/02/2021 12:14:02 03/02/20 21 03/02/2021 COMPR EHENS HERMELINDA METAB OLIC PANEL albumin 3.4 g/dL 2.9-4. 7 normal Not Available [address] [place] [address] [address] [place] [address], [address], 03/02/2021 12:14:02 03/02/20 21 03/02/2021 COMPR EHENS HERMELINDA METAB OLIC PANEL alkaline phosphatase 96 IU/L 18-210 normal Not Available [address] [place] [address], [address], 03/02/2021 12:14:02 03/02/20 21 03/02/2021 NT PRO B TYPE NATRI URETI C PEPT nt pro B type natriuretic pept 36 pg/mL 0-125 normal Not Available [address] [place] [address], [address], 03/02/2021 12:14:02 03/02/20 21 03/02/2021 HEMOG LOBIN A1C hemoglobin A1C 6.1 % 4.4-6. 3 normal Not Available [address] [place] [address], [address], 03/02/2021 12:38:39 01/15/20 23 01/14/2023 smoki ng cessa tion couns eling , great er than 3 minut es up to 10 minut es* Counseling Yes Not Available In-Offi ce Order Internal Use Only DO Not Attach Compendium DO Not Attach Compendium, Do Not Delete/merge, [id number] 01/14/2023 15:32:20 03/02/20 21 03/02/2021 XR, knee, 3 view [facility] [address] [place] [address] X-Ray Report Signed Patien t: Josué Hughes 4935 : [address]: Lorin Hearn EMR ID: [id number] Age/Se x: 65/F E.D. Attend ing: Acct: [id number] Loc: RAD.6N PCP: Lorin Hearn FRENCH COMBER Admit/ Svc Date: Orderi ng Physic aileen: Lorin Hearn NP Date of Servic e: Proced ure(s) : XR knee RT 3V Reason for Exam: Right knee pain Access ion Number (s): [id number] Fax to: cc: Lorin Hearn NP [...] 1040 by Berny Mena MD. KBUSHE Y [email or web address] [place] [address] (Radiology) [address] [place] [address], [address], 03/02/2021 14:48:36 04/06/20 21 04/06/2021 US, echoc ardio gram, trans thora cic, compl ete [facility] Cardio logy Medica l Arts Comple x [address] [place] [address] Cardio vascul ar Report Signed Patien t: Josué Hughes 4935 : [address]: Lorin Hearn EMR ID: [id number] Age/Se x: 65/F E.D. Attend ing: Acct: [id number] Loc: CAV.BE PCP: Lorin Hearn NP Admit/ Svc Date: Orderi ng Physic aileen: Lorin Hearn NP Date of Servic e: Proced ure(s) : CV echo transt horaci c comple te Reason for Exam: dyspne a on exerti on Access ion Number (s): [id number] Fax to: cc: Lorin Hearn NP l1 n 3 Echoca rdiogr aphy Examin ation Transt horaci c Name: Josué Hughes Access ion#: [id number] MR#: [id number] Admiss ion Number : [id number] Study Date: 2020 Study Time: 02:31 PM Date Of : 1955 Age: 65 year(s ) Height : 65 in. (165.1 cm) Weight : 250 lbs. (113.4 0 kg) BSA: 2.17 m2 Gender : Female Blood Pressu re: 144 mmHg / 80 mmHg Heart Rate: Proced ure Staff CV Sonogr apher: Antonietta Avendano Cardia c Sonogr apher Orderi ng Physic aileen: Lorni ny [place] e Readin g Physic aileen: Mohan H Yang, DO Admitt ing Physic aileen: [...] report dated 020 Leann Montanez t: Josué Hughes Admiss ion: [id number] Study Date: 2020 02:31 PM Page 1 [...] y: [place] te Facili ty Locati on: [facility] Out Patien t [...] ) Patien t: Josué Hughes Admiss ion: [id number] Study Date: 2020 02:31 PM Page 2 [...] - 34ml/m sq) Tarik t: Josué Hughes Admiss ion: [id number] Study Date: 2020 02:31 PM Page 3 of 4 Electr onical ly signed by Mohan Yang DO on 2020 at 03:16 PM Tarik t: Josué Hughes Admiss ion: [id number] Study Date: 2020 02:31 PM Page 4 [...] at 1431 by Mohan Yang DO. [facility] [address] [place] [address], [address], 04/22/2021 10:53:03 Result Notes Documentation Provider Name and Address Organization Details Recorded Time Xr, Knee, 3 View : [facility] [address] [address] X-Ray Report Signed Patient: Janeth Hughes : [address]: Linda Vuong EMR ID: [id number] Age/Sex: 65/F E.D. Attending: Acct: [id number] Loc: RAD.6N PCP: Linda Vuong NP Admit/Svc Date: 03/02/21 Ordering Physician: Linda Vuong NP Date of Service: 03/02/21 Procedure(s): XR knee RT 3V Reason for Exam: Right knee pain Accession Number(s): [id number] Fax to: cc: Linda Vuong NP RIGHT KNEE, THREE VIEWS 03/02/2021 8:36 AM Technique: AP, lateral and oblique views of the right knee. Findings: No fracture or dislocation. Mild generalized osteoarthritis. Trace joint fluid. The soft tissues are normal. Station: [id number] Electronically signed on 03/02/21 at 1040 by Berny Mena MD. HIMANSHU Carrizales [address] [place] [address], [address], [facility] [employer] [facility] 03/02/2021 14:48:36 Problems Name Problem SNOMED Code Status Onset Date Resolution Date Notes Provider Name and Address Organization Details Recorded Time Irreduci ble incision al hernia 523785744 Completed 03/14/2020 LINDA VUONG NP [address] [place] [address], [address], [facility] [employer] 0 08:57:52 Erythema multifor me 34205292 Active Marqius polanco, [facility] [employer] [facility] 0 08:27:48 Low back pain 259927948 Completed 03/14/2020 LINDA VUONG NP [address] [place] [address], [address], [facility] [employer] [facility] 0 08:57:50 Pain in female pelvis 823338291 Completed 03/14/2020 LINDA VUONG, DANNY [address] [place] [address], [address], [facility] [employer] [facility] 0 08:52:55 Patient encounte r status 472197994 Completed 03/14/2020 LINDA VUONG, DANNY [address] [place] [address], [address], [facility] [employer] [facility] 0 08:52:47 Postmeno pausal bleeding 22700748 Completed 03/14/2020 Removal Reason: had hysterec ramona VUONG, DANNY [address] [place] [address], [address], [facility] [employer] [facility] 0 08:58:04 Uterine leiomyom a 95401569 Completed 03/14/2020 Removal Reason: hysterec ramona VUONG, DANNY [address] [place] [address], [address], [facility] [employer] [facility] 0 08:58:18 Necrotiz ing fasciiti s 06702335 Completed 03/14/2020 LINDA VUONG, DANNY [address] [place] [address], [address], [facility] [employer] [facility] 0 08:53:27 Surgical follow-u p 752305793 Completed 03/14/2020 LINDA VUONG NP [address] [place] [address], [address], [facility] [employer] [facility] 0 08:53:13 Cyst 468768930 Completed 03/14/2020 LINDA VUONG NP [address] [place] [address], [address], [facility] [employer] [facility] 0 08:53:36 Pain of shoulder region 47297264 Completed 03/14/2020 LINDA VUONG NP [address] [place] [address], [address], [facility] [employer] [facility] 0 08:58:09 Increase d frequenc y of urinatio n 415649915 Completed 03/14/2020 LINDA VUONG, DANNY [address] [place] [address], [address], [facility] 0 08:57:46 Injury of kidney 85464583 Active Marquis Trevongabbie [facility] 0 08:27:49 Intestin al hernia 28577980 Completed 03/14/2020 LINDA VUONG, DANNY [address] [place] [address], [address], [facility] 0 08:57:55 Vaginiti s 43628496 Completed 03/14/2020 LINDA VUONG, DANNY [address] [place] [address], [address], [facility] 0 08:53:09 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 5595433182 8519223 Active Marquis Arenas [facility] 0 08:27:49 History of hysterec ramona 033681589 Active Marquis Arenas [facility] 0 08:27:49 Trichomo nal vaginiti s 536186169 Completed 03/14/2020 LINDA VUONG, DANNY [address] [place] [address], [address], [facility] 0 08:53:06 Atrial fibrilla tion 30884532 Active Marquis Arenas [facility], [facility] 0 08:27:49 Peripher al nerve disease 941629001 Active Marquis Arenas [facility] 0 08:27:49 Incision al hernia 077825916 Completed 03/14/2020 Removal Reason: repaired LINDA VUONG, DANNY [address] [place] [address], [address], [facility] 0 08:57:41 Endometr ium thickene d 389688009 Completed 03/14/2020 LINDA VUONG NP [address] [place] [address], [address], [facility] 0 08:57:17 Postoper ative nausea and vomiting 2829900 Completed 03/14/2020 LINDA VUONG NP [address] [place], [address], [facility] 0 08:58:24 History of excision of small intestin e 9163514119 25095 Completed 03/14/2020 Removal Reason: historic al LINDA VUONG, DANNY [address], [place], [address], [facility] 0 08:57:28 Hyperten sive disorder 74464458 Active 2019 Antonietta Lambert RN [address] [place], [address], [facility] 0 09:47:25 Hyperlip idemia 73579487 Active 2019 Marquis Arenas [facility], [facility] 0 08:27:49 Tobacco dependen ce syndrome 62788198 Active 2019 Marquis Arenas [facility], [facility] 0 08:27:49 Pulmonar y emphysem a 20616114 Active 2019 Marquis Arenas [facility], [facility] 0 08:27:49 Dyspnea on exertion 62218708 Active 2019 LINDA VUONG NP [address] [place], [address], [facility] 0 08:57:04 Left side sciatica 8594896510 65159 Active 2019 LINDA VUONG NP [address] [place], [address], [facility] 0 08:57:07 Cervical radiculo davi 96179347 Active 2019 LINDA VUONG NP [address] [place], [address], [facility] [employer] [facility] 0 08:59:17 Headache 92291304 Active 2019 LINDA VUONG, DANNY [address] [place], [address], [facility] 0 09:15:15 Osteopen ia 493423067 Active 2020 LINDA VUONG, DANNY [address] [place], [address], [facility] 1 08:56:25 Bilatera l carpal tunnel syndrome 3860542486 7594257 Active 2020 LINDA VUONG, DANNY [address] [place] [address], [address], [facility] [employer] [facility] 1 08:56:27 Screenin g for malignan t neoplasm of colon Active 2020 LINDA VUONG, DANNY [address] [place], [address], [facility] 1 08:56:31 Screenin g mammogra phy Active 2020 LINDA VUONG, DANNY [address] [place], [address], [facility] 1 08:56:32 Irritabl e bowel syndrome 96483043 Active 2020 LINDA VUONG, DANNY [address] [place], [address], [facility] [employer] [facility] 1 08:28:55 Pain in right knee Active 2020 LINDA VUONG, DANNY [address] [place], [address], [facility] 1 08:07:10 Hypergly cemia 15219912 Active 2020 LINDA VUONG, FRENCH COMBER [address] [place], [address], [facility] 1 08:09:23 Edema of lower extremit y 538528143 Active 2020 LINDA VUONG, DNANY [address] [place], [address], [facility] 1 08:10:58 Morbid obesity 312787932 Active 2021 LINDA VUONG, [employer]EN[employer] COMBER [address] [place], [address], [facility] 2 10:24:03 Benign essentia l hyperten ayesha 2116876 Active 2021 LINDA VUONG, FREN[employer] COMBER [address] [place], [address], [facility] 2 10:29:20 Problem Notes None recorded. Procedures Surgical History Date Name Laterality Status Provider Name and Address Organization Details Recorded Time Hysterectomy completed Marquis Still [facility] 12/02/2020 08:15:46 Hernia Repair completed Marquis Arenas [facility] 12/02/2020 08:15:53 Unlisted px meckel's dvrtclm completed Santhosh Carrizales [address] [place] [address], [address], [facility] 01/26/2021 07:54:08 Imaging Results None recorded. Procedure Notes None recorded. Medical Equipment None Reported. Allergies Allergen ID Allergen Name Allergen Category Reaction Reaction Severity Criticality Documentation Date Start Date Code Code System Note Provider Name and Address Organization Details Recorded Time 377607 Product containin g penicilli n (product) medicatio n Not available Not available Not available 12/02/2020 26245 8001 SNOMED Marquis Rogers x collin, [facility] 1 08:13:14 Medications Name Sig Start Date Stop [...] Available doxycycli ne hyclate 100 mg capsule 03/26 /2020 completed stopped Not Available Not Available Not [...] blood by Pulse oximetry Heart rate Systolic And Diastolic Provider Name and Address Organization Details Last Updated DateTime 3 165.1 cm 37.1 kg/m2 808652. 1 g 16 /min 97 [degF] 98 % 98 % 76 /min 138/76 mm[Hg] Gregory Frost CMA [facility] [employer] 3 15:22:00 Date Recorded Body height Body mass index (BMI) Body weight Respiratory rate Body temperature Oxygen saturation Oxygen saturation in Arterial blood by Pulse oximetry Heart rate Systolic And Diastolic Provider Name and Address Organization Details Last Updated DateTime 2 165.1 cm 36.1 kg/m2 22073.5 4 g 17 /min 98.6 [degF] 98 % 98 % 78 /min 134/82 mm[Hg] Gregory Frost [facility] [employer] 2 09:57:08 Date Recorded Body height Body mass index (BMI) Body weight Body temperature Respiratory rate Oxygen saturation Oxygen saturation in Arterial blood by Pulse oximetry Heart rate Systolic And Diastolic Provider Name and Address Organization Details Last Updated DateTime 1 165.1 cm 41.9 kg/m2 023916. 28 g 98.2 [degF] 16 /min 97 % 97 % 80 /min 178/99 mm[Hg] Santhosh Carrizales [address] [place], [address], [facility] [employer] 1 07:41:55 Date Recorded Body height Body mass index (BMI) Body weight Heart rate Respiratory rate Systolic And Diastolic Provider Name and Address Organization Details Last Updated DateTime 1 165.1 cm 41.5 kg/m2 712815. 2 g 96 /min 16 /min 160/82 mm[Hg] Antonietta Lambert RN [address] [place], [address], [facility] [employer] 1 14:02:55 Social History Question Answer Notes LastModified by Organizat ion Details LastModified Time Tobacco Smoking Status Current Every Day Smoker 4-5 cigg daily LINDA VUONG NP [address] [place], [address], [facility] [employer] 12/02/2020 08:31:09 What Is Your Level Of [...] available 2020 07:52:39 Medical History Condition Response Cancer (of any kind) N Stroke N Headache N Asthma, COPD, Breathing or Lung Disorder Y Cardiac History, Heart Murmur, DE N Skin Problems N Anxiety/Depression N Developmental or Behavioral Disorders N Blood Pressure High or Low Y Thyroid Problems N GI Problems Y Diabetes N Bladder,Kidney Problems or Recurrent UTI 's N Liver Disease or Hepatitis N Gout N Gynecologic problems N Muscle, Joint, or Bone Problems N Arthritis Y Defects or Inherited Diseases N Food or Environmental Allergies N Bleeding Disorder N Neuropathy N Hernia Y Breast Problem N Dizziness or Fainting N Seizures or Convulsions N Eye or Vision Problems Y Prostate issues, ED or Sexual Problem N Insomnia N Cholesterol High or Low N Chronic Pain N Ear Nose & Throat (ENT) Problems N Osteoporosis N Gynecological HistoryNo gynecological history recorded. Obstetrics History GPAL:G 0 P 0 0 0 0 Immunizations Vaccine Type Date Status Note Provider Nam e and Address Organization Details Recorded Time COVID-19, mRNA, LNP-S, PF, 100 mcg/0.5mL dose or 50 mcg/0.25mL dose 11/14/2020 completed Marquis polanco [place] - [employer] [facility] 12/02/2020 08:14:02 Past Encounters Encounter ID Performer Location Encounter Start Date Encounter Closed Date Diagnosis/Indication Diagnosis SNOMED-CT Code Diagnosis ICD10 Code Diagnosis IMO Codes Diagnosis Note [id number] Wolf Carrizales MD P [address] [place] [address] 10/09/2019 09:18:12 10/09/2019 09:53:32 Hypertensive disorder [id number] I10 [id number] Wolf Carrizales MD [address] [place] [address] 11/01/2019 07:52:15 11/01/2019 13:09:24 Hypertensive disorder 51429246 I10 Unable to check at home. Is still taking amlodipine 10mg QD and metoprolol 50mg TID.Report s asymptomat ic.Reviewe d concerning signs of uncontroll ed HTN. Hyperlipidemia 62269467 E78.5 Reviewed labs borderline high. Diet and exercise for control. Recheck at 6 month interval. Tobacco de pendence syndrome 01174710 F17.200 Encouraged quitting smoking efforts. Reviewed health benefits. Pulmonary emphysema [address] reviewed with patient and due 09/2020 [id number] Wolf Carrizales MD [address] [place] [address] 03/14/2020 08:19:44 03/14/2020 09:34:57 Hyperlipidemia 94003171 E78.5 Reviewed labs borderline high. Diet and exercise for control. Recheck at 6 month interval. Hypertensive disorder 38 207658 I10 Unable to check at home. Is [...] have a smoking hx. Left side sciatica 95360 86185 88766 M54.32 PT order placed. Cervical radiculopathy 11096471 M54.12 EMG ordered and can address with PT. Strength intact and ROM intact. Obesity 659404510 E66.9 diet, exercise and weight loss reviewed. labs ordered. Vitamin D deficiency 347 57861 E55.9 is taking 1000iu QD. Headache 28125541 R51 Atypical headache like sxs. Seems to be more superficia l scalp pain. Alleviated with pressure applied to region.adv ised updating eye exam has been 7+ years.If worsening or changing sxs call office or ER. [id number] Wolf Carrizales MD [address] [place] [address] 08/14/2020 09:15:05 08/14/2020 10:12:50 Patellar tendonitis 82552450 M76.50 begin prednisone , ice and can use topical icy hot at night. IF not improving follow up for XR and ortho referral. [id number] Wolf Carrizales MD [address] [place] [address] 12/02/2020 08:06:57 12/02/2020 08:46:38 Adult health examination 770467202 Z00.00 Update all fasting labs, mammo and colonoscop y and bone density due. Hyperlipidemia 77971382 E78.5 Reviewed labs borderline high. Diet and exercise for control. Lipids elevated in past did not recheck at 6 mos due to COVID. Hypertensive disorder 38 959331 I10 BP borderline . Encouraged to Cont amlodipine 10mg and metoprolol 50mg TID as directed. Tobacco de pendence syndrome 05326224 F17.200 Encouraged quitting smoking efforts. Reviewed health benefits. LDCT overdue Screening mammography 24 830993 Z12.31 Mammo overdue. Screening for malignant neoplasm of colon 062677186 Z12.11 colonoscop y never done. Bilateral carpal tunnel syndrome 5640617082 4264147 G56.03 follow up with Ortho again Osteopenia 885295884 M85 .80 Bone density ordered. She has never had done. Obesity 311577785 E66.9 diet, exercise and weight loss reviewed. labs ordered. [id number] Wolf Carrizales MD [address] [place] [address] 01/26/2021 07:43:23 01/26/2021 08:14:40 Hypertensive disorder 49925967 I10 BP high. begin checking BP daily Cont amlodipine 10mg and increase metoprolol 75mg TID as directed. Irritable bowel syndrome 18990381 K58.9 f/u with GI. has colonoscop y sched 02/13. [id number] Wolf Carrizales MD [address] [place] [address] 03/02/2021 07:36:43 03/02/2021 08:14:32 Hypertensive disorder 21457452 I10 uncontroll ed on-amlodip ine 10mg.metop rolol 100mg BID she stopped because made her nausea and did not resume 50mg TID. Resume metoprolol 50mg 1 AM and noon then 100mg QHS.f/u 1 week.Pendi ng BNP and CMP may add on diretic as well Tobacco de pendence syndrome 78013017 F17.200 Encouraged quitting smoking efforts. Reviewed health benefits. LDCT due 12/2021 Emphysema noted Atrial fibrillation 4943 6004 I48.91 Has not followed up with cardiology . reports dyspnea increased. Dyspnea on exertion 6084 5006 R06.09 Echo 04/2020 normal.[place] to extent she needs to stop and rest frequently throughout the day. She does have a smoking hx. Hyperglycemia 71798143 R 73.9 Glucose was 110 in november on CMP. Will update and A1c Pulmonary emphysema [address] due 12/2021. Smoking cessation stressed. Pain in right knee 66932 21432 17273 M25.561 Complete today for eval If arthritis will refer to orthopedic vs PT Edema of l ower extremity 967751476 R60.0 BNP ordered. Coarse crackle and rhonchi noted. WIll add on diuretic pending labs.Merrill ting legs when sitting, compressio n stocking with prolonged standing on work days and low salt diet stressed. [id number] Wolf Carrizales MD [address] [place] [address] 03/12/2021 13:42:29 03/12/2021 14:10:33 Hypertensive disorder 00110987 I10 [id number] LINDA VUONG NP [address] [place] [address] 09/10/2021 15:08:46 09/10/2021 15:49:22 Injury of left shoulder [id number] 9399345 S49.92XA Fell last year. Worsening LUE numbness and tingling from shoulder area. Ortho ref and XR ordered. Irritable bowel syndrome 50784653 K58.9 f/u with GI for increase in loose stool. Fiber intake and diet reviewed. if not improving or long wait to be seen can order CT as well. Bilateral carpal tunnel syndrome 7797734290 6314399 G56.03 follow up with Ortho again New referral in place Dyspnea on exertion 6084 5006 R06.09 Echo 04/2020 and 03/2021 both normal.[place] to extent she needs to stop and rest frequently throughout the day. She does have a smoking hx.Possibl e r/t COPDShe would likely benefit from cardiopulm rehab [id number] LINDA VUONG NP [facility] [address] [address] 03/01/2022 09:26:13 03/01/2022 10:24:40 Atrial fibrillation 33549349 I48.91 no cardiology notes in [facility]. Echo report was found and will scan in for review. Benign ess ential hypertension 9987219 I10 BP stable. Cont metoprolol 50mg TID, amlodipine 10mg QD and chlorthali done. 12.5mg QD. Bilateral carpal tunnel syndrome 7520812288 1162754 G56.03 follow up with Ortho again New referral in place Hyperlipidemia 51773047 E78.5 2020 borderline high. She has been working on diet and has lost approx 30lbs. encouraged to continu efforts. Labs ordered. Morbid obesity 190889157 E66.01 BMI today: 36.1Cont with healthy diet and incorporat e exercise. Fasting labs due. Vitamin D deficiency 347 31380 E55.9 is taking 1000iu QD. Screening mammography 24 300192 Z12.31 Mammo overdue. [id number] LINDA VUONG NP [facility] [address] [place] [address] 01/14/2023 14:38:29 01/14/2023 15:57:21 Benign essential hypertension 0650933 I10 BP stable. Cont metoprolol 50mg TID, amlodipine 10mg QD.UPdate labs Hyperlipidemia 20139478 E78.5 2020 borderline high. She has been working on diet and has lost approx 25lbs. encouraged to continue efforts. Labs ordered.Up date labs. Morbid obesity 362254836 E66.01 BMI today: 37.1Cont whole foods diet and exercise/a ctivity as tolerated. Vitamin D deficiency 347 22596 E55.9 is taking 1000iu QD. Tobacco de pendence syndrome 41611844 F17.200 Encouraged quitting smoking efforts. Reviewed health benefits. LDCT due 12/2021 Emphysema noted Health Concerns Section Related Observation LastModified by Organization Detai ls LastModified Time None Recorded Concern Status LastModified by Organization Details LastModified Time None Recorded Advance Directives Directive None Recorded Payers Insurance Date Sequence Insurance Name Policy Number Policy Brooks Covered Member ID Brooks Member ID Guarantor Name 02/15/2023 2 [place] [employer] [facility] Janeth Hughes [id number] Janeth Hughes 07/09/2021 2 [employer] NET Janeth Hughes [id number] Janeth Hughes 02/14/2024 [place] [facility] [id number] Janeth Hughes [id number] Janeth Hughes 02/14/2024 1 [facility] (MEDICARE REPLACEMENT/ADV ANTAGE - PPO) [id number] Janeth Hughes [id number] Janeth Hughes 07/09/2021 1 [facility] [employer] - DIRECT CONNECTORCARE TYPE I (HMO) [id number] Janeth Hughes [id number] Janeth Hughes 07/09/2021 2 [facility] Janeth Hughes [id number] Janeth Hughes 10/09/2019 1 *SELF PAY* Lorenzo Hughes Notes Date Note Type Note Provider Name and Address Organization Details Recorded Time 03/02/2021 text/html ROS as noted in the HPI IN office follow up for BP check [...] other ROS neg. LINDA VUONG NP [address], [place], [address], [facility] [employer] 03/02/2021 08:18:34 03/12/2021 text/html [id number] - Pt presented for BP check LINDA VUONG, DANNY [address], [place], [address], [facility] [employer] 03/12/2021 14:58:23 09/10/2021 text/html ROS as noted in the HPI Telephone call placed to patient today for [...] documentation available in her chart [facility] All other ROS neg. LINDA VUONG, DANNY [address] [place], [address], [facility] [employer] 09/10/2021 15:57:12 03/01/2022 text/html ROS as noted in the HPI In office f/u today She has been having this ongoing now since her small bowel resection in 12/2019. She has been working on weight loss changed her diet and has been avoiding starchy carbs. She has moved to the [facility] and would like to cont care in our office but to do all labs and testing at [facility] as this is easier for her. Chart [...] other ROS neg. 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 She has moved to the [facility] and would like to cont care in our office but to do all labs and testing at [facility] as this is easier for her. Chart review-Fasting labs-DueColonoscopy -ordered 2020 no record or report in [email or web address] per patient she did it and it [...] other ROS neg. LINDA VUONG, DANNY [address], [place], [address], [facility] [employer] 01/14/2023 15:44:55 OBGyn Episode No OBEpisode recorded.
--- NOTE | 2025-05-23 07:59 | A.OFFVIS_ITS ---
Intake Vital Signs 05/23/25 08:05 Height 5 ft 5 in Weight 224 lb 8 oz BMI 37.4 BP 138/76 Blood Pressure Location Lt brachial Position Sitting Respiration 13 Pulse 78 Pulse Source Pulse Oximeter Temp 97.2 F Temp Source Oral Pulse Oximetry (%) 98 Oxygen Delivery Method Room Air Intake Visit Reasons: Mid/end May sAWV 30 min labs 1 week before Intake Note: awv Chief Operations Officer Required: No Allergies Penicillins Allergy (Severe, Verified 05/23/25 08:39) Eye Swelling Medication List - Last Reviewed 05/23/25 by Estefani Keene MA albuterol sulfate 90 mcg/actuation 2 puffs inhalation Q4-6H PRN 30 days amlodipine 10 mg PO DAILY aspirin 81 mg PO DAILY atorvastatin 20 mg PO BEDTIME cholecalciferol (vitamin D3) 50 mcg PO DAILY fluticasone furoate 100 mcg/actuation (Arnuity Ellipta) 1 inh inhalation DAILY hydrochlorothiazide 25 mg PO DAILY ipratropium-albuterol 20-100 mcg/actuation (Combivent Respimat) 1 puff inhalation QID mecobalamin (vitamin B12) (B12 Active) 2,000 mcg (2 x 1,000 mcg) PO DAILY metoprolol tartrate 50 mg PO DAILY pramoxine 1% (Sensitive Anti-Itch) 1 appl topical BID Do you need a note to return to daycare/school/sports/work: No HPI HPI Comments History of Present Illness Details Kindra Here today for AWV. The Medicare Annual Wellness Visit (AWV) is a yearly appointment with a health professional to identify health risks and help reduce them and to create or update a personalized prevention plan. During a Medicare AWV, health professionals should also review any current opioid prescriptions, detect any cognitive impairment, and establish or update medical and family history. Kindra 69 y/o F with HTN, current smoker, menop ause, obesity, Vit d def , right knee osteoarthritis, PVD, CHF, b12 def without anemia, frequent falls, SurgHx: s/p R CTS repair FHx: no changes SocHx: no changes Health Maintenance: See scanned preventative medicine assessment with personalized health plan and screening schedule. Lung ca screening: referred 05/21/24, will be getting this done February 04, 2025 Dexa ordered today Pap NA Colon referred 05/21/24 Mammo ordered again today Vaccines: Tdap/flu 05/21/24 AAA screen: NA EKG: done today LVH otherwise WNL 09/05/24 LDL 99, A1c 5.6 [place] of Care: GI waiting on appt thinks she had an appt but i do not have records ortho 06/18/24, will make another appt Derm 06/2024 [facility] initial derm Cards canceled initial appt with Dr Dale d/t insurance - new referral to [facility] placed. Pulm had appt w/ [facility] had appt x 1 Optho Visual Acuity: wears glasses, exam 2024 Hearing Screening: no concerns ACP: does not have, HCP and MOLST provided along w/ edu Dietary/Nutrition/Exercise Edu provided: Y During the course of the visit the patient was educated and counseled about appropriate screening and preventative services. Patient instructions were provided to the patient in written or electronic format. I have reviewed and ve rified the above information. History of Present Illness The patient is a 69-year-old female presenting with an abnormal medical wellness visit. Respiratory symptoms/COPD - Persistent wheezing, worsens when lyin g down. - Noted thick green phlegm episode prior , resolved with OTCs. - Pain in throat - Cont to smoke - Active in lung ca screening program Hypertension/CHF - Managed with amlodipine, hydrochloroth iazide, metoprolol. - referred to Cards Nicotine dependence: - Smokes three cigarettes daily. - Attempting further reduction. Vitamin D deficiency: - On vitamin D supplements for deficienc y. Hyperlipidemia/PVD - On atorvastatin for management. Housing exposure: - Housing conditions potentially exacerb ate respiratory issues - has carpeting; active with [facility] for assi st/[facility]. will meet w/ them again today. [facility] Misses appts as does not get info; wants to stay in [place] for appts does not like to travel long distances will meet w/ [facility] today to assit. Social History - Current smoker reducing to three cigar ettes a day. - Experiencing financial constraints imp acting healthcare. - Resides in housing with poor environme ntal quality affecting health. - Reports difficulty securing a higher t oilet for better accessibility. I will have my nurses write RX for a raised toilet seat Health Maintenance - Flu vaccination discussed, potential f or administration today. - Mammogram and bone density tests sched uled; needs updates on completion. - Colonoscopy screening discussed with o ption to use home fecal test kit. - Vision screening overdue; glasses are old and repair needed. - Blood work and urine tests are planned for today. - Discussion held regarding raised toile t seat for improved mobility. Review of Systems - Respiratory: Reports wheezing, difficu lty breathing, decreased sleep quality. - Skin: Reports itching. - Neurological: Denies changes in hearin g, reports tingling in fingers. - Musculoskeletal: Reports thumb popping . - Genitourinary: Reports possible strong -smelling urine. - Constitutional: Reports weight loss of 5 pounds. - Psychiatric: Reports mood management w ith Vitamin B12. Physical Exam General: Well developed, well nourished, in no acute distress. Appears older than stated age. Head: Normocephalic, atraumatic. Eyes: Pupils are equal, round and reactive to light and accommodation. Conjunctivae are clear. Scleras nonicteric bilat. Ears: TMs clear AU, EACS WNL. Pharynx: c/o pain, normal visualization, no adenopathy Nose: Patent Neck: No carotid bruit bilat. Supple, no adenopathy or thyromegaly. Breast: Edu on SBE. Mammogram orders sent to [facility]. Lungs: Ins/exp wheeze throughout, no distress. Heart: Regular rate and rhythm. 2/6 systolic murmurs, click, rubs or gallops are noted. Abdomen: Bowel sounds present in all quadrants. The abdomen is soft, nontender, with no masses or organomegaly noted. No hernias are noted : Deferred. Reviewed recommendations for routine JBOSS ARCHITECT. Pulses: Peripheral pulses are equal and palpable bilaterally. Nonpitting edema BLE L>R, decreased PP, + varicose veins, skin intact Extremities: No clubbing, cyanosis is noted. Neurologic: Gait and station normal. Cranial Nerves 2-12 intact. Motor strength grossly symmetrical and intact. No sensory loss. Balance normal. Skin: No rashes, ulcers, or lesions noted. Turgor is good. Skin color is good. Hair and nails are without abnormalities. Psych: Normal eye contact, affect and mood appropriate, and normal interactions. Patient is alert and appropriate to context. Results Pending Discussion Notes During the visit, we discussed the patient's respiratory symptoms and the management options involving inhalers to provide relief for wheezing and breathing difficulties. I explained the costs associated with CombiVent and Arnuity inhalers and emphasized the importance of confirming insurance coverage to ensure affordability. We reviewed the role of improving the housing environment to mitigate respiratory symptoms and agreed to coordinate with Aakash, a community health liaison, for housing concerns and potential accommodation solutions. The patient consented to revisit the flu shot. We discussed health maintenance measures including mammogram, bone density, and colonoscopy with the potential for an at-home test. I updated the patient on the importance of monitoring hypertension, vitamin D levels, and cholesterol management. We addressed the need for continued reduction in smoking to support respiratory health. Plans for blood and urine tests were reiterated, and the patient was informed about today's EKG and additional health maintenance routines. Patient was given time to ask questions. All questions were answered to their satisfaction. Assessment and Plan 1. Respiratory symptoms/COPD - CombiVent inhaler prescribed; confirm affordability and consider insurance. - SMoking cessation - Arnuity if Combivent w/ poor coverage - Flu shot today - FU if no improvement or worsening - Liaison support for housing conditions . 2. Hypertension/CHF - Continue blood pressure regimen. - FU with cards 3. Nicotine dependence - Encourage further smoking reduction. 4. Vitamin D deficiency - Maintain supplement. 5. Hyperlipidemia/PVD - Continue atorvastatin. 6. Housing exposure - Community health partner follow-up. 7. Limited finances - Manage healthcare access. 8. Urine odor - check UA today. Patient Instructions - Use the new inhaler as directed, confi rm costs, and contact if high copays occur. - Continue working to quit smoking to ai d your breathing. - Keep taking vitamin D and atorvastatin as prescribed. - Work with Aakash on your housing issues . - Follow diet recommendations and monito r blood pressure regularly. - Watch for a home test kit for colon sc reening. - Expect your flu shot today or soon. - Follow instructions for lab tests here today. - RTO 3-4 mo routine complex fu, sooner PRN Consent The patient consented to EKG testing and blood work explained as part of wellness screening. Informed consent obtained regarding prescription of inhalers; discussed insurance considerations. Patient understood the role of CombiVent versus alternatives and confirmed consent for potential respiratory treatments. The patient also agreed to routine flu vaccination pending decision. Consent for raised toilet seat initiative was noted. Potential financial implications were discussed, ensuring the patient is aware of all requirements. Patient was informed and verbally consented to the use of an ambient scribe for clinic note documentation during this visit. An additional 30 minutes was spent addressing the problem(s) noted at todays visit. This includes time spent before the visit reviewing the chart, time spent during the visit, and time spent after the visit on documentation reviewing laboratory results, diagnostic imaging, medications, performing a medically necessary evaluation, counseling on diagnoses, care coordination, ordering appropriate tests, ordering appropriate medications, review of tests performed by other providers, reporting test results with the patient, communication with other healthcare providers. [facility] Surgical History (Updated 10/26/24 @ 15:38 by Marilou Navarrete, [facility]) History of carpal tunnel surgery of right wrist (~10/2024) Social History (System 05/22/24 @ 07:46 by Maira Alexander) Household Members: None Housing: Apartment Are you a primary acute care certified nursing assistant to a significant other at home: No Do you presently have visiting nurse or other home services: Yes ([facility]) 75 years or older and lives alone: No Alcohol intake: current Alcohol intake frequency: a few times a week Patient Tobacco Use Status: Current everyday Tobacco user Tobacco use type: Cigarette Cigarettes Per Day: 3 Years Smoked: 50 e-Cigarette/Vaping Use: Never Used service: No Current occupational status: employed and retired 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 Cognitive needs: Yes Hearing needs: No Vision needs: Yes (wear glasses) Questionnaire Medicare Wellness Checkup What [age] What gender do you identify with?: female During the past 4 weeks, how much have you been bothered by emotional problems such as feeling anxious, depressed, irritable, sad or downhearted, and blue?: not at all During the past 4 weeks, has your physical & emotional health limited your social activities with family, friends, neighbors, or groups?: not at all During the past 4 weeks, how much bodily pain have you generally had?: no pain During the past 4 weeks, was someone available to help you if you needed & wanted help?: yes, as much as I wanted During the past 4 weeks, what was the hardest physical activity you could do for at least 2 minutes?: light Can you get to places out of walking distance without help? (For eg., can you tr liban alone on buses, taxis or drive your car?): Yes Can you go shopping for groceries or clothes without someone's help?: Yes Can you prepare your own meals?: Yes Can you do your housework without help?: Yes Because of any health problems, do you need the help of another person with your personal care needs such as eating, bathing, dressing or getting around the house?: No Can you handle your own money without help?: Yes During the past 4 weeks, how would you rate your health in general?: good During the past 4 weeks how have things been going for you?: pretty well Are you having difficulties driving your car?: no Do you always fasten your seat belt when you are in a car?: yes, usually During past 4 weeks, have you been bothered by the following: never: Falling or dizzy when standing up, Sexual problems?, Trouble eating well?, Teeth or denture problems?, Problems using the telephone? and Tiredness or fatigue? Have you fallen 2 or more times in the past year?: Yes Are you afraid of falling?: No Are you a smoker?: yes, and I might quit During the past 4 weeks, how many drinks of wine, beer, or other alcoholic beverages did you have?: no alcohol at all Do you exercise for about 20 minutes 3 or more times a week?: no, I usually do not exercise this much Have you been given information to help with the following?: no: Hazards in your house that might hurt you? and no: Keeping track of your medications? How often do you have trouble taking medicines the way you have been told to take them?: I always take medicine as prescribed How confident are you that you can control & manage most of your health problems?: very confident What is your race?: Black or Activity of Daily Living Bathing - sponge bath, tub bath or shower: receives no assistance (gets in/out by self, if usual bathing means Toileting - going to the 'toilet room' for urine/bowel elimination & cleaning self/arranging clothes: goes to toilet room, cleans self, arranges clothes without help Transfer: moves in & out of bed and chair without help (may use support object) Continence: controls urination/bowel movements completely by self Feeding: feeds self without help Total Score: 0 Information obtained from: patient Using telephone: independent Traveling: independent Shopping: independent Preparing meals: independent Housework: independent Taking medicine: independent Managing money: independent PHQ-9 Over the last 2 weeks, how often have you been bothered by any of the following problems? 1. Little interest or pleasure in doing things: not at all 2. Feeling down, depressed, or hopeless: not at all 3. Trouble falling or staying asleep, or sleeping too much: not at all 4. Feeling tired or having little energy: not at all 5. Poor appetite or overeating: not at all 6. Feeling bad about yourself - or that you are a failure or have let yourself or your family down: not at all 7. Trouble concentrating on things, such as reading the newspaper or watching television: not at all 8. Moving or speaking so slowly that other people could have noticed. Or the opposite - being so fidgety or restless that you have been moving around a lot more than usual: not at all 9. Thoughts that you would be better off or of hurting yourself in some way: not at all Total score: 0 Depression Screening Interpretation: Negative Depression Screening Done: Yes 67485 - PHQ-9 Billing: Yes Source: Developed by Drs. Raymundo Higgins, Claudia Angulo, Mac Foote and colleagues, with an educational mireya from [employer]. Physical Exam Vital Signs: Last Vital Signs Pulse 78 05/23/25 08:05 BP 138/76 05/23/25 08:05 Pulse Ox 98 05/23/25 08:05 Oxygen Delivery Method Room Air 05/23/25 08:05 BMI result Body Mass Index 37.4 Office Procedures EKG [id number], Complete Vision Screening Right Eye: 20/40 Left Eye: 20/50 Bilateral: 20/50 Color: Pass Corrected: Pass (wearing glasses) 59126 - Vision Screening Assessment & Plan Assessment & Plan (1) Encounter for annual wellness visit (AWV) in Medicare patient: Onset Date: ~05/23/25 Code(s): Z00.00 - Encounter for general adult medical examination without abnormal findings (2) ACP (advance care planning): Code(s): Z71.89 - Other specified counseling (3) Menopause: Code(s): Z78.0 - Asymptomatic menopausal state (4) Tobacco dependence: Comment: referred for lung ca screening Smoking Cessation How to Quit There are a lot of ways to quit smoking and many resources to help you. Family members, friends, and co-workers may be supportive or encouraging, but to be successful the desire and commitment to quit must be your own. Most people who have been able to successfully quit smoking made at least one unsuccessful attempt in the past. Try not to view past attempts to quit as failures, but rather as learning experiences. Stopping smoking or using smokeless tobacco is difficult, but anyone can do it. Know the symptoms to expect when you stop. Common symptoms include: ? An intense craving for nicotine ? Anxiety, tension, restlessness, frustration, or impatience ? Difficulty concentrating ? Drowsiness or trouble sleeping, as well as bad dreams and nightmares ? Drowsiness and trouble sleeping ? Headaches ? Increased appetite and weight gain ? Irritability or depression How severe your symptoms are depends on how long you smoked and how many cigarettes you smoked each day. Feel ready to quit? ? First and foremost, set a quit date and quit completely on that day. Before your quit date, you may begin reducing your cigarette use. But remember, there is no safe level of cigarette smoking. ? List the reasons why you want to quit. Include both short- and long-term benefits. ? Identify the times you are most likely to smoke. For example, do you tend to smoke when feeling stressed or down? When out at night with friends? While drinking coffee or alcohol? When bored? While driving? Right after a meal or sex? During a work break? While watching TV or playing cards? When you are with other smokers? ? Let all of your friends, family, and co-workers know of your plan to stop smoking and your quit date. Just being aware that they know what you're going through can be helpful, especially when you are grumpy. ? Get rid of all your cigarettes just before the quit date, and clean out anything that smells like smoke, such as clothes and furniture. Make a plan about what you will do instead of smoking at those times when you are most likely to smoke. ? Be as specific as possible. For example, drink tea instead of coffee -- tea may not trigger the desire for a cigarette. Or, take a walk when you feel stressed. ? Remove ashtrays and cigarettes from the car. Place pretzels or hard candies there instead. Pretend-smoke with a straw. ? Find activities that focus your hands and mind but are not taxing or fattening. Computer games, solitaire, knitting, sewing, and crossword puzzles may help. ? If you normally smoke after eating, find other ways to end a meal. Play a tape or CD, eat a piece of fruit, get up and make a phone call, or take a walk (a good distraction that also wong calories). Make other changes in your lifestyle. ? Change your daily schedule and habits. Eat at different times or eat several small meals instead of three large ones. Sit in a different chair or even a different room. ? Satisfy your oral habits by eating celery or other low-calorie snack, chewing sugarless gum, or sucking on a cinnamon stick. ? Go to public places and restaurants where smoking is prohibited or restricted. ? Eat regular meals and don't eat too much candy or sweet things. ? Get more exercise. Take walks or ride a bike. Exercise helps relieve the urge to smoke. Set short-term quitting goals and reward yourself when you meet them. ? Every day, put the money you normally spend on cigarettes in a jar. Then buy something pleasurable after a period of time. ? Try not to think about all the days ahead you will need to avoid smoking. Take it one day at a time. ? Even one puff or one cigarette will make your desire for more cigarettes even stronger. However, it is normal to make mistakes. So even if you have one cigarette, you don't need to take the next one. Other tips to help you quit smoking and stick to it: ? Enroll in a smoking cessation program (hospitals, health departments, [employer] [facility], and work sites often offer programs). Learn about self-hypnosis or other techniques. ? Ask your health care provider about prescription medications that are safe and appropriate for you. ? Find out about nicotine patches, gum, and sprays. The [place] [employer]'s web site -- www.cancer.org -- is an excellent resource for smokers who are trying to quit, and the [employer] [place] [employer] can help some smokers kick the habit. Above all, don't get discouraged if you aren't able to quit smoking the first time. Nicotine addiction is a hard habit to break. Try something different next time. Develop new strategies, and try again. Many people take several attempts to finally kick the habit. Code(s): F17.200 - Nicotine dependence, unspecified, uncomplicated (5) Influenza vaccination administered at current visit: Onset Date: ~05/23/25 Code(s): Z23 - Encounter for immunization (6) HTN (hypertension): Code(s): I10 - Essential (primary) hypertension Qualifiers: Hypertension type: primary hypertension Qualified Code(s): I10 - Essential (primary) hypertension (7) CHF (congestive heart failure): Code(s): I50.9 - Heart failure, unspecified Qualifiers: Heart failure chronicity: chronic Heart failure type: systolic Qualified Code(s): I50.22 - Chronic systolic (congestive) heart failure (8) Heart murmur: Code(s): R01.1 - Cardiac murmur, unspecified (9) PVD (peripheral vascular disease): Comment: 05/2024 ([employer] 06/04/24 Right leg 1.02 WNL, Left leg 0.59 Mild/moderate) based on clinical exam, decreased PP, hairless, monitor skin integrity encourage exercise and smoking cessation Code(s): I73.9 - Peripheral vascular disease, unspecified (10) Hyperlipidemia: Comment: LDL goal <70 Code(s): E78.5 - Hyperlipidemia, unspecified Qualifiers: Hyperlipidemia type: mixed hyperlipidemia Qualified Code(s): E78.2 - Mixed hyperlipidemia (11) Urine incontinence: Code(s): R32 - Unspecified urinary incontinence Qualifiers: Urinary Incontinence type: continuous leakage Qualified Code(s): N39.45 - Continuous leakage (12) Falls: Code(s): R29.6 - Repeated falls (13) COPD (chronic obstructive pulmonary disease): Code(s): J44.9 - Chronic obstructive pulmonary disease, unspecified Qualifiers: COPD type: chronic bronchitis Chronic bronchitis type: simple Qualified Code(s): J41.0 - Simple chronic bronchitis (14) Abnormal urine odor: Code(s): R82.90 - Unspecified abnormal findings in urine (15) Viral URI: Code(s): J06.9 - Acute upper respiratory infection, unspecified Plan . Orders: Orders MM tomosynthesis screening BI Today Z12.31 - Encounter for screening mammogram for malignant neoplasm of breast XR DEXA axial skeleton Today Z13.820 - Encounter for screening for osteoporosis, Z78.0 - Asymptomatic menopausal state UA CC w/rflx Micro + Cult Today R30.0 - Dysuria Referrals Cologuard Test Z12.11 - Encounter for screening for malignant neoplasm of colon Medications: New ipratropium-albuterol 20-100 mcg/actuation (Combivent Respimat) space evenly during waking hours 1 puff inhalation QID 4 grams 12RF pramoxine 1% (Sensitive Anti-Itch) 1 appl topical BID 237 mL 12RF fluticasone furoate 100 mcg/actuation (Arnuity Ellipta) 1 inh inhalation DAILY 30 ea 12RF Refilled hydrochlorothiazide 25 mg PO DAILY 90 tabs 2RF albuterol sulfate 90 mcg/actuation 2 puffs inhalation Q4-6H PRN 8.5 grams 0RF shortness of breath or wheezing 30 days aspirin 81 mg PO DAILY 90 caps 2RF Patient Instructions: Health screenings for women You should visit your health care provider from time to time, even if you are healthy. The purpose of these visits is to: Screen for medical issues Assess your risk for future medical problems Encourage a healthy lifestyle Update vaccinations and other preventive care services Help you get to know your provider in case of an illness Information Even if you feel fine, you should still see your provider for regular checkups. These visits can help you avoid problems in the future. For example, the only way to find out if you have high blood pressure is to have it checked regularly. High blood sugar and high cholesterol levels also may not have any symptoms in the early stages. A simple blood test can check for these conditions. There are specific times when you should see your provider or receive specific health screenings. The [place] Preventive Services Task Force publishes a list of recommended screenings. Below are screening guidelines for women ages 18 to 39. BLOOD PRESSURE SCREENING Your blood pressure should be checked at least once every 3 to 5 years if: Your blood pressure is in the normal range (top number less than 120 mm Hg and bottom number less than 80 mm Hg) You don't have risk factors for high blood pressure Ask your provider if you need your blood pressure checked more often if: The top number is 120 to 129 mm Hg or the bottom number is 70 to 79 mm Hg You have diabetes, heart disease, kidney problems, are overweight, or have certain other health conditions You have a first-degree relative with high blood pressure You are Black You had high blood pressure during a If the top number is 130 mm Hg or greater or the bottom number is 80 mm Hg or greater, this is considered stage 1 hypertension. Schedule an appointment with your provider to learn how you can reduce your blood pressure. Watch for blood pressure screenings in your area. Ask your provider if you can stop in to have your blood pressure checked. BREAST CANCER SCREENING Experts do not agree about the benefits of breast self-exams in finding breast cancer or saving lives. Talk to your provider about what is best for you. A screening mammogram is not recommended for most women under age 40. Your provider may discuss and recommend mammograms, MRI scans, or ultrasounds if you have an increased risk for breast cancer, such as: A mother or sister who had breast cancer at a young age (most often starting screening earlier than the age the close relative was diagnosed) You carry a high-risk genetic marker CERVICAL CANCER SCREENING Cervical cancer screening should start at age 21 years unless your provider advises otherwise. After the first test: Women ages 21 through 29 should have a Pap test every 3 years. Exoprts do not agree on whether HPV testing is recommended for this age group. Women ages 30 through 65 should be screened with either a Pap test every 3 years or the HPV test every 5 years or both tests every 5 years (called cotesting ). Women who have been treated for precancer (cervical dysplasia) should continue to have Pap tests for 20 years after treatment or until age 65, whichever is longer. If you have had your uterus and cervix removed (total hysterectomy), and you have not been diagnosed with cervical cancer or precancer (high grade cervical neoplasia), you do not need cervical cancer screening. CHOLESTEROL SCREENING Cholesterol screening should begin at: Age 45 for women with no known risk factors for coronary heart disease Age 20 for women with known risk factors for coronary heart disease Repeat cholesterol screening should take place: Every 5 years for women with normal cholesterol levels More often if changes occur in lifestyle (including weight gain and diet) More often if you have diabetes, heart disease, kidney problems, or certain other conditions DIABETES SCREENING You should be screened for diabetes starting at age 35 and then repeated every 3 years if you have no risk factors for diabetes. Screening may need to start earlier and be repeated more often if you have other risk factors for diabetes, such as: You have a first degree relative with diabetes. You are overweight or have obesity. You have high blood pressure, prediabetes, or a history of heart disease. Screening for diabetes should be done if you are planning to become and you are overweight and have other risk factors such as high blood pressure. DENTAL EXAM Go to the dentist once or twice every year for an exam and cleaning. Your dentist will evaluate if you need more frequent visits. EYE EXAM Have an eye exam every 5 to 10 years before age 40. If you have vision problems, have an eye exam every 2 years or more often if recommended by your provider. You should have an eye exam that includes an examination of your retina (back of your eye) at least every year if you have diabetes. IMMUNIZATIONS Commonly needed vaccines include: Flu shot: get one every year. COVID-19 vaccine: ask your provider what is best for you. Tetanus-diphtheria and acellular pertussis (Tdap) vaccine: have one at or after age 19 as one of your tetanus-diphtheria vaccines if you did not receive it as an adolescent. Tetanus-diphtheria: have a booster (or Tdap) every 10 years. Varicella vaccine: receive 2 doses if you never had chickenpox or the varicella vaccine. Hepatitis B vaccine: receive 2, 3, or 4 doses, depending on your exact circumstances. Measles, mumps, and rubella (MMR) vaccine: receive 1 to 2 doses if you are not already immune to MMR. Your provider can tell you if you are immune. Ask your provider about the human papillomavirus (HPV) vaccine if: You have not received the HPV vaccine in the past You have not completed the full vaccine series (you should catch up on this shot) Ask your provider if you should receive other immunizations if you have certain health problems that increase your risk for some diseases such as pneumonia. INFECTIOUS DISEASE SCREENING Women who are sexually active should be screened for chlamydia and gonorrhea up until age 25. Women 25 years and older should be screened for chlamydia and gonorrhea if at high risk. Screening for hepatitis C: All adults ages 18 to 79 should get a one-time test for hepatitis C. people should be screened at every . Screening for human immunodeficiency virus (HIV): All people ages 15 to 65 should get a one-time test for HIV. Depending on your lifestyle and medical history, you may also need to be screened for infections such as syphilis and HIV, as well as other infections. PHYSICAL EXAM All adults should visit their provider from time to time, even if they are healthy. The purpose of these visits is to: Screen for disease Assess your risk of future medical problems Encourage a healthy lifestyle Update your vaccinations and other preventive care services Maintain a relationship with a provider in case of an illness Your height, weight, and BMI should be checked at every exam. During your exam, your provider may ask you about: Depression and anxiety Diet and exercise Alcohol and tobacco use Safety issues, such as using seat belts, smoke detectors, and intimate partner violence Your medicines and risk for interactions SKIN SELF-EXAM Your provider may check your skin for signs of skin cancer, especially if you're at high risk, such as if you: Have had skin cancer before Have close relatives with skin cancer Have a weakened immune system OTHER SCREENING Talk with your provider about colon cancer screening if you have a strong family history of colon cancer or polyps, or if you have had inflammatory bowel disease or polyps yourself. Routine bone density screening of women under 40 is not recommended. Quality Reporting (2019) Adult ([facility] 138/09/29/68) Smoking risk assessment performed?: Yes Patient Tobacco Use Status: Current everyday Tobacco user Tobacco cessation counseling provided: Yes Items discussed: Nicotine replacement, QuitWorks and Other Pharmacotherapy not ordered: No Depression screening performed: Yes Screen Results: Yes Negative screen Recommended changes: lifestyle and weight reduction Systolic BP not done?: No Diastolic BP not done?: No BMI screening not done: No BMI High - Follow Up: Yes High-plan Sexual Activity Screening ([facility] 153) Sexually active?: No Immunizations ([facility] 147, 117) Annual Influenza Vaccine: Yes Measles Antibody Test: No Mumps Antibody Test: No Rubella Antibody Test: No Varicella Antibody Test: No Anti Hepatitis A IgG Antigen test: No Anti Hepatitis B Virus Surface Ab test: No Fall Risk Screening ([facility] 139) Last assessed Fall Risk: 05/23/25 Fall risk assessment: 2 + Falls in past year Dementia Assessment ([facility] 149) Cognitive assessment recorded: Yes Assessment of cognition with standardized tool: Yes Depression/Bipolar (159/160/161/177) PHQ-9: Total score: 0 Ophthalmol:Cataracts Visual Acuity (133) Visual acuity exam performed: Yes (see results) Coding Level of Care Code Medicare Subsequent (G0439) Est Pt Level 4 (45561) Diagnoses Encounter for annual wellness visit (AWV) in Medicare patient Z00.00 ACP (advance care planning) Z71.89 Menopause Z78.0 Tobacco dependence F17.200 Influenza vaccination administered at current visit Z23 Primary hypertension I10 Hypertension type: primary hypertension Chronic systolic congestive heart failure I50.22 Heart failure chronicity: chronic Heart failure type: systolic Heart murmur R01.1 PVD (peripheral vascular disease) I73.9 Mixed hyperlipidemia E78.2 Hyperlipidemia type: mixed hyperlipidemia Continuous leakage of urine N39.45 Urinary Incontinence type: continuous leakage Falls R29.6 Simple chronic bronchitis J41.0 COPD type: chronic bronchitis Chronic bronchitis type: simple Abnormal urine odor R82.90 Viral URI J06.9 CPT Codes Advance Care Planning - Time spent: 16-45 minutes ([id number]) EKG - CPT: 50786-[id number], Complete ([id number]) Vision Screening - Vision Screenin - Vision Screening ([id number]) Additional Codes PHQ-9 - 30603 - PHQ-9 Billing: Yes ([id number]) Advance Care Planning Advance Care Planning discussion: Exists, not on file Date of discussion: 05/23/25 Who was present: self Forms completed: Health Care Proxy, MOLST and Living will Time spent: 16-45 minutes Actual minutes spent: 16
[2025-05-23 08:05] VITALS: BP 138/76; PULSE 78; RESP 13; TEMP 36.2; O2SAT 98; BMI 37.4
== END 2025-05-23 09:03 | disposition home or self-care (01) ==
LOC: HO.HMCFM 07:54
PROVIDERS: PCP Nurse Practitioner Family; Visit Provider Nurse Practitioner Family
DX: Z00.00 Encounter for general adult medical examination without abnormal findings (principal); I11.0 Hypertensive heart disease with heart failure; I50.22 Chronic systolic (congestive) heart failure; J41.0 Simple chronic bronchitis; R01.1 Cardiac murmur, unspecified; J06.9 Acute upper respiratory infection, unspecified; F17.200 Nicotine dependence, unspecified, uncomplicated; Z78.0 Asymptomatic menopausal state; Z23 Encounter for immunization; I73.9 Peripheral vascular disease, unspecified; E78.2 Mixed hyperlipidemia; N39.45 Continuous leakage; R29.6 Repeated falls; R82.90 Unspecified abnormal findings in urine